=== PATIENT | male | born 1990 | race Caucasian/White ===

== ENCOUNTER 2016-04-17 11:48 | Emergency (ER) | payer SELFPAY ==
[2016-04-17] MEDS ORDERED: Clindamycin CAP* 150 MG PO ONE (13:55)
[2016-04-17] MEDS ORDERED: Acetaminophen TAB* 325 MG PO ONE (13:55)
--- NOTE | 2016-04-17 14:16 | ED ---
Deb Brewer Anna, scribed for Jesus España MD on 04/17/16 at 1353 . Throat Pain/Nasal Congestion - HPI Summary HPI Summary: Patient is a 25 y/o male coming to [facility] presenting with constant left-sided jaw pain that that began one week ago. He describes the severity of the pain as 9/10. Last week he cut sugar out of his diet because of the pain. Pain radiates through sinuses and eye socket. Additionally experiences nasal drip, productive cough, and fever yesterday. Four years ago he had jaw reconstruction because of broken teeth. - History of Current Complaint Chief Complaint: EDDentalPain Time Seen by Provider: 04/17/16 13:47 - Allergies/Home Medications Allergies/Adverse Reactions: Allergies Allergy/AdvReac Type Severity Reaction Status Date / Time Fluticasone [From Flonase] Allergy Intermediate vomiting Verified 03/13/16 15:29 blood Penicillins [PCN] Allergy Intermediate Vomiting Verified 03/13/16 15:29 Prednisone Allergy Intermediate vomit blood Verified 03/13/16 15:29 Molds & Smuts Allergy Congestion Verified 03/13/16 15:29 Ibuprofen AdvReac Severe VOMITING, Verified 03/13/16 15:29 SEVERE STOMACH PAIN white vinegar Allergy Rash Uncoded 03/13/16 15:29 PMH/Surg Hx/FS Hx/Imm Hx Endocrine/Hematology History: Denies: Hx Anticoagulant Therapy, Hx Diabetes, Hx Thyroid Disease, Other Endocrine/Hematological Disorders Cardiovascular History: Reports: Hx Hypertension - PRE-HTN, Other Cardiovascular Problems/Disorders - FLUTTERS Denies: Hx Pacemaker/ICD Respiratory History: Reports: Hx Chronic Bronchitis, Hx Chronic Obstructive Pulmonary Disease (COPD) Denies: Hx Asthma, Other Respiratory Problems/Disorders GI History: Reports: Hx Gastroesophageal Reflux Disease, Hx Hiatal Hernia, Other GI Disorders - hiatal hernia Denies: Hx Ulcer History: Denies: Hx Renal Disease, Other Problems/Disorders Musculoskeletal History: Reports: Hx Orthopedic Injury - Right wrist dislocation ; Fractrued left forearm; Left Patella Fx; Fx Femur;, Other Musculoskeletal History - see above Sensory History: Denies: Other Sensory Impairments Opthamlomology History: Denies: Other Sensory Impairments Neurological History: Reports: Hx Migraine, Other Neuro Impairments/Disorders - BACK INJURY 2007- MUSCLES Denies: Hx Dementia, Hx Seizures Psychiatric History: Reports: Hx Anxiety, Hx Depression, Hx Bipolar Disorder, Hx Substance Abuse - synthetic drugs 1 yr ago Denies: Hx Eating Disorder, Hx of Violent Episodes Against Others, Other Psychiatric Issues/Disorders - Surgical History Surgery Procedure, Year, and Place: 2012 orif right wrist/left jaw orif/orif left femur-knee cap - Immunization History Date of Tetanus Vaccine: Up to date Date of Influenza Vaccine: None Infectious Disease History: Unable to Obtain/Confirm Infectious Disease History: Reports: Hx Hepatitis - HEP C Denies: Hx Clostridium Difficile, Hx Human Immunodeficiency Virus (HIV), Hx of Known/Suspected MRSA - has had staph on his face, Hx Shingles, Hx Tuberculosis, Hx Known/Suspected VRE, Hx Known/Suspected VRSA, History Other Infectious Disease, Traveled Outside the [place] in Last 30 Days - Family History Known Family History: Positive: Cardiac Disease, Hypertension, Diabetes, Other - thyroid disease - Social History Occupation: Employed Full-time Lives: With Family Alcohol Use: None Hx Substance Use: Yes Substance Use Type: Reports: None Substance Use Comment - 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 Patient is lying comfortably on the stretcher. Head: Normacephalic and atraumatic Eyes: PERRLA, EOMI x2. Ears: Right and Left ear canal and TM WNL Nose and mouth: Multiple dental cavities. Worse in tooth # Neck: Supple, no lymphadenopathy, no JVD Lungs: CTA B/L CVS: S1 & S2 present. No murmurs appreciated. Vital signs: Reviewed Gen.: Patient is a well-developed and nourished male in no acute distress. Patient is lying comfortably on the stretcher. Head: Normacephalic and atraumatic Eyes: PERRLA, EOMI x2. Ears: Right and Left ear canal and TM WNL Nose and mouth: Multiple dental cavities. Worse tooth # 16. Neck: Supple, no lymphadenopathy, no JVD Lungs: CTA B/L CVS: S1 & S2 present. No murmurs appreciated. Vital Signs On Initial Exam: Initial Vitals Temp Pulse Resp BP Pulse Ox 98.4 F 76 14 135/72 100 04/17/16 11:55 04/17/16 11:55 04/17/16 11:55 04/17/16 11:55 04/17/16 11:55 Diagnostics - Vital Signs Vital Signs Temp Pulse Resp BP Pulse Ox 04/17/16 11:55 98.4 F 76 14 135/72 100 - Laboratory Lab Statement: Any lab studies that have been ordered have been reviewed, and results considered in the medical decision making process. EENT Course/Dx - Course Assessment/Plan: Patient is a 25 y/o male coming to [facility] presenting with constant left-sided jaw pain that that began one week ago. He describes the severity of the pain as 9/10. Last week he cut sugar out of his diet because of the pain. Pain radiates through sinuses and eye socket. Additionally experiences nasal drip, productive cough, and fever yesterday. Four years ago he had jaw reconstruction because of broken teeth. P/E reveals multiple dental cavities. Worse tooth # 16. Patient is allergic to Penicillin. He will be given Clindamycin and tylenol. He was strongly recommended to f/u with a dentist for definite treatment of multiple cavities. He understands and agrees. - Differential Diagnoses Differential Diagnoses: Odontogenic Pain, Periodontic Abscess, URI/Bronchitis - Diagnoses Provider Diagnoses: Dental cavity Discharge - Discharge Plan Condition: Stable Disposition: HOME Prescriptions: Acetaminophen TAB* [Tylenol TAB*] 650 mg PO Q6H PRN #20 tab PRN Reason: Pain Clindamycin CAP* [Cleocin 150 MG CAP*] 150 mg PO QID #28 cap Patient Education Materials: Dental Caries (ED), Toothache (ED) Referrals: [facility], [MD - TESTING] - The documentation as recorded by the Deb cox Anna accurately reflects the service I personally performed and the decisions made by me, Jesus España MD.
[2016-04-17 14:38] VITALS: BP 118/81
== END 2016-04-17 14:37 | disposition home or self-care (01) ==
LOC: ED 11:48
DX: K02.9 Dental caries, unspecified (principal); R50.9 Fever, unspecified; R68.84 Jaw pain; Z88.0 Allergy status to penicillin; Z88.6 Allergy status to analgesic agent
CPT/HCPCS: 99282; A9270-GY

== ENCOUNTER 2016-04-28 07:30 | Emergency (ER) | payer SELFPAY ==
[2016-04-28 07:42] VITALS: BP 128/78
--- NOTE | 2016-05-10 00:23 | UC ---
Benjamin Brewer Aidan, scribed for Elda Leung DO on 04/28/16 at 0827 . General HPI - HPI Summary HPI Summary: 25 y/o male presents to the Urgent Care with a complaint of acute, constant, moderate fatigue, episodes of moderate dizziness, and a productive cough producing thick, green phlegm. 4 days ago, he began having chest congestion. Yesterday, he felt fatigued, dizzy, and developed a productive cough. This morning, there was some blood in his phlegm that seems to be coming from his nose - bright red streaks. Other associated symptoms include nausea, mild photophobia, and a sinus CORBIN with ear pain. Pt denies any sore throat or abdominal pain. - History of Current Complaint Chief Complaint: UCGeneralIllness Stated Complaint: CHEST CONGESTION Time Seen by Provider: 04/28/16 08:12 Hx Obtained From: Patient Onset/Duration: Sudden Onset, Lasting Days, Still Present Timing: Intermittent Episodes Lasting: - constant fatigue, photophobia, intermittent episodes of productive cough, dizziness, nausea, sinus CORBIN with ear pain, episode of near-syncope Onset Severity: Moderate Current Severity: Moderate Pain Location at: ear, sinus CORBIN Pain Radiates to: does not radiate Character: sinus CORBIN with ear pain, episodes of dizziness Aggravating: dizziness caused an episode of near-syncope Alleviating: unknown Associated Signs & Symptoms: Positive: Cough, Dizziness, Headache - with ear pain, Nausea, Other - fatigue, chest congestion, photophobia - Allergy/Home Medications Allergies/Adverse Reactions: Allergies Allergy/AdvReac Type Severity Reaction Status Date / Time Fluticasone [From Flonase] Allergy Intermediate vomiting Verified 03/13/16 15:29 blood Penicillins [PCN] Allergy Intermediate Vomiting Verified 03/13/16 15:29 Prednisone Allergy Intermediate vomit blood Verified 03/13/16 15:29 Molds & Smuts Allergy Congestion Verified 03/13/16 15:29 Ibuprofen AdvReac Severe VOMITING, Verified 03/13/16 15:29 SEVERE STOMACH PAIN white vinegar Allergy Rash Uncoded 03/13/16 15:29 PMH/Surg Hx/FS Hx/Imm Hx Endocrine History Of: Denies: Diabetes, Thyroid Disease Cardiovascular History Of: Reports: Hypertension - PRE-HTN Denies: Cardiac Disorders - flutters at times, Pacemaker/ICD Respiratory History Of: Reports: COPD, Bronchitis - RECURRENT, X4 PER YEAR. Denies: Asthma GI/ History Of: Reports: Gastroesophageal Reflux - hiatal hernia Denies: Ulcer, Renal Disease Neurological History Of: Reports: Migraine Denies: CVA, Dementia, Seizures Psychological History Of: Reports: Anxiety, Depression, Bipolar Disorder Other History Of: Negative For: Anticoagulant Therapy - Surgical History Surgical History: Yes Surgery Procedure, Year, and Place: 2012 orif right wrist/left jaw orif/orif left femur-knee cap - Family History Known Family History: Positive: Cardiac Disease, Hypertension, Diabetes, Other - thyroid disease - Social History Occupation: Employed Full-time Lives: Alone Alcohol Use: None Substance Use Type: None Substance Use Comment - 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 Smoking Status (MU): Current Every Day Smoker Type: Cigarettes Amount Used/How Often: 1/2 PPD Length of Time of Smoking/Using Tobacco: 14 years Have You Smoked in the Last Year: No Cessation Counseling: Patient Advised to Stop Review of Systems Constitutional: Fatigue, Other - dizziness, nausea Skin: Negative Eyes: Photophobia ENT: Ear Ache Respiratory: Cough Cardiovascular: Negative Gastrointestinal: Negative Genitourinary: Negative Motor: Negative Neurovascular: Negative Musculoskeletal: Negative Neurological: Headache Psychological: Negative All Other Systems Reviewed And Are Negative: Yes Physical Exam Triage Information Reviewed: Yes Appearance: Well-Appearing, No Pain Distress, Well-Nourished Vital Signs: Initial Vital Signs Temp 98.7 F 04/28/16 07:37 Pulse 96 04/28/16 07:37 Resp 16 04/28/16 07:37 BP 128/78 04/28/16 07:37 Pulse Ox 100 04/28/16 07:37 Vital Signs Reviewed: Yes Eyes: Positive: Conjunctiva Clear. Negative: Discharge ENT: Positive: Hearing grossly normal, TMs normal. Negative: Tonsillar swelling , Tonsillar exudate, Trismus, Muffled/hoarse voice Neck exam: Normal Neck: Positive: Supple Respiratory: Positive: Lungs clear, Normal breath sounds, No respiratory distress, No accessory muscle use Cardiovascular: Positive: RRR, No Murmur Musculoskeletal Exam: Normal Neurological: Positive: Alert, Muscle Tone Normal Psychological: Positive: Age Appropriate Behavior Skin Exam: Normal, Other - warm, dry, normal color Course/Dx - Course Course Of Treatment: Dr. Leung informed the patient about the risks of smoking. - Differential Dx - Multi-Symptom Provider Diagnoses: sinusitis, bronchospasm Discharge - Discharge Plan Condition: Stable Disposition: HOME Prescriptions: Albuterol 2.5MG/3ML (0.083%)* [Ventolin 2.5 MG/3 ML NEB.MARY*] 2.5 mg INH Q4H PRN #1 box PRN Reason: Sob/Wheezing Albuterol HFA INHALER* [Ventolin HFA Inhaler*] 2 puff INH Q4H PRN #1 mdi PRN Reason: Sob/Wheezing Azithromycin TAB* [Zithromax TAB (Z-MONICO) 250 mg #6 tabs] 0 mg PO .SEE INSTRUCTIONS #6 tab guaiFENesin ER TAB [Mucinex*] 600 mg PO BID PRN #1 box PRN Reason: Cough guaiFENesin/CODIEN 100MG-10MG* [Robitussin AC 100Mg-10Mg*] 5 - 10 ml PO BEDTIME PRN #100 udc MDD 10ml PRN Reason: Cough Patient Education Materials: Sinusitis (ED), Bronchospasm (ED) Forms: *Work Release Referrals: No Primary Care Phys,NOPCP [Primary Care Provider] - Additional Instructions: TRY USING THE NETTI POT IN THE MORNINGS DISCUSSED. YOU MUST ALWAYS USE CLEAN WATER. REMEMBER, POSTURE IS AN IMPORTANT FACTOR IN SINUS DRAINAGE. MOVE YOUR NECK, BREATHE. INHALED BRONCHODILATORS:YOU CAN USE EITHER THE INHALER OR NEB EVERY 4 HOURS WHILE AWAKE WHILE SYMPTOMS OF COUGHING SPASMS PERSIST. You have received a prescription for an inhaled bronchodilator -- a medication which stimulates the airways in the lung to dilate. This improves the flow of air in asthma, bronchitis, and emphysema. These medicines have some similarity to adrenaline, and can cause similar side effects: shakiness, racing heart, and a sense of nervousness. These side effects decrease with time. Contact your doctor if these side effects are severe. Do not over-use the medicine. Too-frequent use of the inhaler may make it ineffective. Call your doctor if the inhaler is not controlling your symptoms at the prescribed doses. COUGH-SUPPRESSANT & EXPECTORANT MEDICATION: You are to use a cough medication as needed for relief of symptoms. This medicine is a combination of an expectorant (to make the mucous thinner and more easily "coughed up") and a cough suppressant (to reduce the frequency of coughing). The cough-suppressant medicine is related to narcotics. You may experience mild nausea and sleepiness. Some patients who are very sensitive to narcotics may have stomach pain from this medicine. Taking the medicine with food reduces these side effects. Do not drive or work with machinery until you know how this medicine affects you. The expectorant should have no side effects. Iodine-containing expectorants (such as organidin) should not be taken by persons with active thyroid disease unless approved by your doctor. Call the doctor if you develop shortness of breath, hives, rash, itching, lightheadedness, or severe nausea and vomiting. EXPECTORANT MEDICATION: An expectorant medicine has been prescribed. This type of drug makes mucous thinner, helping the sinuses, nose, and bronchial tubes to remain free of pus and mucous. Expectorants make a cough less severe and more comfortable, and help infected sinuses drain. In general, antihistamines defeat the purpose of the expectorant by making mucous thicker. They should be avoided unless specifically recommended by your physician. ANTIBIOTICS ARE NOT CURRENTLY INDICATED FOR YOUR CONDITION. HOWEVER IF YOUR SYMPTOMS WORSEN OR PERSIST FOR MORE THAN 3-5 DAYS, YOU CAN START THE FOLLOWING ANTIBIOTIC: AZITHROMYCIN: Azithromycin (Zithromax) is a broad spectrum antibiotic in the same class as erythromycin. It can treat a variety of bacterial infections, but is most frequently used for respiratory infections. Azithromycin is extremely long-lasting. It accumulates in body tissues and continues to kill bacteria for many days. In order to improve absorption, Azithromycin should be taken at least one hour before or two hours after a meal. It does not have the same strong tendency to upset the stomach as erythromycin and is usually very well tolerated. Patients who have had a rash or other true allergic reactions to erythromycin should not take this medication. Call if you develop gastrointestinal distress, severe diarrhea, rash, hives, itching, or shortness of breath. ANY TIME YOU TAKE AN ANTIBIOTIC, IT IS IMPORTANT TO REPLENISH THE BODY'S BALANCE OF "GOOD" BACTERIA BY EATING HIGH QUALITY CULTURED FOOD SUCH YOGURT, SAURKRAUT OR KATE CHI AND/OR TAKING A PROBIOTIC SUPPLEMENT. FOLLOW-UP CARE: You should establish with a private physician for follow-up care IN 1-2 WEEKS. If you are unable to get a timely appointment, or if you are worsening, call us or return for re-evaluation. An additional resource available to assist in finding the appropriate physician for your health care needs is the Physician Referral Center. You may contact them by calling [phone]. The documentation as recorded by the Benjamin cox Aidan accurately reflects the service I personally performed and the decisions made by me, Elda Leung DO.
== END 2016-04-28 09:09 | disposition home or self-care (01) ==
LOC: UCEAST 07:30
DX: J32.9 Chronic sinusitis, unspecified (principal); J98.01 Acute bronchospasm; Z88.6 Allergy status to analgesic agent; Z88.0 Allergy status to penicillin; F17.210 Nicotine dependence, cigarettes, uncomplicated
CPT/HCPCS: 99211; G0463

== ENCOUNTER 2016-05-15 12:37 | Emergency (ER) | payer SELFPAY ==
[2016-05-15 12:55] VITALS: BP 131/67
[2016-05-15] MEDS ORDERED: Bupivacaine 0.25% SDV* 30 ML ONE (13:40)
--- NOTE | 2016-05-15 13:46 | UC ---
Dental HPI - HPI Summary HPI Summary: TWO DAY HISTORY OF LEFT LOWER TOOTH PAIN; NO FEVER. HISTORY OF SEVERAL DENTAL VISITS TO ED/URGENT CARE (RECENT VISITS 03/13/16, 04/17/16 FOR LEFT SIDED DENTAL COMPLAINS. PATIENT STATED AT THOSE VISITS HE HAD APPOINTMENT TO [facility] TO HAVE ISSUE ADDRESSED). NO SORE THROAT. NO SWELLING OFF TONGUE, EAR ACHE OR HEADACHE. - History of Current Complaint Chief Complaint: UCDentalProblem Stated Complaint: DENTAL COMPLAINT Time Seen by Provider: 05/15/16 12:56 Hx Obtained From: Patient Onset/Duration: Gradual Onset, Lasting Days, Still Present Severity: Moderate Aggravating: Chewing Related History: Previous Dental Care on Same Tooth - Allergies/Home Medications Allergies/Adverse Reactions: Allergies Allergy/AdvReac Type Severity Reaction Status Date / Time Fluticasone [From Flonase] Allergy Intermediate vomiting Verified 03/13/16 15:29 blood Penicillins [PCN] Allergy Intermediate Vomiting Verified 03/13/16 15:29 Prednisone Allergy Intermediate vomit blood Verified 03/13/16 15:29 Molds & Smuts Allergy Congestion Verified 03/13/16 15:29 white vinegar Allergy Rash Uncoded 03/13/16 15:29 PMH/Surg Hx/FS Hx/Imm Hx Previously Healthy: Yes Endocrine History Of: Denies: Diabetes, Thyroid Disease Cardiovascular History Of: Reports: Hypertension - PRE-HTN Denies: Cardiac Disorders - flutters at times, Pacemaker/ICD Respiratory History Of: Reports: COPD, Bronchitis - RECURRENT, X4 PER YEAR. Denies: Asthma GI/ History Of: Reports: Gastroesophageal Reflux - hiatal hernia Denies: Ulcer, Renal Disease Neurological History Of: Reports: Migraine Denies: CVA, Dementia, Seizures Psychological History Of: Reports: Anxiety, Depression, Bipolar Disorder Other History Of: Negative For: Anticoagulant Therapy - Surgical History Surgical History: Yes Surgery Procedure, Year, and Place: 2012 orif right wrist/left jaw orif/orif left femur-knee cap - Family History Known Family History: Positive: Unknown, Cardiac Disease, Hypertension, Diabetes , Other - thyroid disease - Social History Occupation: Employed Full-time Alcohol Use: None Substance Use Type: None Substance Use 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 - 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 Smoking Status (MU): Current Every Day Smoker Type: Cigarettes Amount Used/How Often: 1/2 PPD Length of Time of Smoking/Using Tobacco: 14 years Have You Smoked in the Last Year: No Cessation Counseling: Patient Advised to Stop Review of Systems Constitutional: Negative Skin: Negative Eyes: Negative ENT: Dental Pain Respiratory: Negative Cardiovascular: Negative Gastrointestinal: Negative Genitourinary: Negative Motor: Negative Neurovascular: Negative Musculoskeletal: Negative Neurological: Negative Psychological: Negative All Other Systems Reviewed And Are Negative: Yes Physical Exam Triage Information Reviewed: Yes Appearance: Well-Appearing, No Pain Distress, Well-Nourished, Thin Vital Signs: Initial Vital Signs Temp 99.8 F 05/15/16 12:48 Pulse 97 05/15/16 12:48 Resp 18 05/15/16 12:48 BP 131/67 05/15/16 12:48 Pulse Ox 97 05/15/16 12:48 Vital Signs Reviewed: Yes Eye Exam: Normal ENT Exam: Normal ENT: Positive: Normal ENT inspection, Hearing grossly normal, Pharynx normal, TMs normal Dental: Positive: Percussion Tenderness @, Gross Decay/Caries @ - ,20 Neck exam: Normal Neck: Positive: Supple, Nontender Respiratory Exam: Normal Respiratory: Positive: Chest non-tender, Lungs clear, Normal breath sounds, No respiratory distress, No accessory muscle use Cardiovascular Exam: Normal Cardiovascular: Positive: RRR, No Murmur, Pulses Normal Abdominal Exam: Normal Abdomen Description: Positive: Nontender, No Organomegaly Musculoskeletal Exam: Normal Musculoskeletal: Positive: Strength Intact, ROM Intact Neurological Exam: Normal Neurological: Positive: Alert Psychological Exam: Normal Skin Exam: Normal Dental Complaint Course/Dx - Differential Dx/Diagnosis Differential Diagnosis/Dx: Dental Abscess, Odontogenic Pain, Peridontic Disease , Tonsillitis Provider Diagnoses: ODONTOGENIC PAIN - Physician Notification/Consults Discussed Patient Care With: DR ROUSSEAU Time Discussed With Above Provider: 13:30 Discharge - Discharge Plan Condition: Stable Disposition: HOME Prescriptions: Clindamycin Cap(NF) [Cleocin 300 mg Cap(NF)] 300 mg PO TID #30 cap Patient Education Materials: Dental Caries (ED), Toothache (ED) Referrals: [facility] PHYSICIAN REFERRAL [Outside] No Primary Care Phys,NOPCP [Primary Care Provider] - Additional Instructions: DENTAL REFERRAL SHEET GIVEN [facility] CHRONIC PAIN GUIDELINES. Images Dental: 1 - [facility]
[2016-05-15] MEDS ORDERED: Ibuprofen TAB* 400 MG PO ONE (13:59)
[2016-05-15] MEDS ORDERED: Acetaminophen TAB* 325 MG PO ONE (14:01)
--- NOTE | 2016-05-15 14:19 | UC ---
casandra Brewer Timothy, scribed for Trinh Smyth MD on 05/15/16 at 1352 . Progress - Progress Note Progress Note: PROCEDURE NOTE: Jaqueline Agudelo is a 25 yo male presenting to [facility] with 9/10 pain in tooth 21 for the past few days. After clinical examination of the tooth in question,and obtaining informed consent and doing a time out procedure. Pt was injected using sterile technique with 5ml of bupivacaine, and infiltrated in area of left lower alveolar nerve, which decreased his pain from 9/10 to a 3/ 10. He had no complications and voiced relief and satisfaction with the procedure. Following his decrease in pain, he will be discharged with appropriate instructions and follow up. Attempted to make dental appointment for patient with his upcoming [employer] insurance and unable to get appointment with 3 dental offices that were called. Will advise pt to continue calling. The documentation as recorded by the scribecasandra Timothy accurately reflects the service I personally performed and the decisions made by me, Trinh Smyth MD.
== END 2016-05-15 14:37 | disposition home or self-care (01) ==
LOC: UCEAST 12:37
DX: K08.89 Other specified disorders of teeth and supporting structures (principal); Z88.0 Allergy status to penicillin; Z88.8 Allergy status to other drugs, medicaments and biological substances; F17.210 Nicotine dependence, cigarettes, uncomplicated
CPT/HCPCS: 99212; A9270-GY; G0463

== ENCOUNTER 2016-05-29 16:42 | Emergency (ER) | payer SELFPAY ==
[2016-05-29 17:58] VITALS: BP 116/63
== END 2016-05-29 18:57 | disposition left against medical advice (07) ==
LOC: ED 16:42
DX: R21 Rash and other nonspecific skin eruption (principal); Z53.21 Procedure and treatment not carried out due to patient leaving prior to being seen by health care provider

== ENCOUNTER 2016-06-10 15:55 | Emergency (ER) | payer SELFPAY ==
[2016-06-10] MEDS ORDERED: NS 0.9% 1000 ML* 2,000 ML IV ONE (16:28)
[2016-06-10] MEDS ORDERED: Ondansetron INJ* 2 MG/ML VIAL IV ONE (16:28)
[2016-06-10] MEDS ORDERED: Morphine INJ* 4 MG/ML 1 ML CARPUJECT IV ONE ×3 (16:28→19:22)
[2016-06-10 16:44] LABS: Hematocrit 43 % (42-52); Hemoglobin 14.5 g/dl (14.0-18.0); Mean Corpuscular HGB Conc 34 g/dl (31-36); Mean Corpuscular Hemoglobin 30 pg (27-31); Mean Corpuscular Volume 88 fL (80-94); Mean Platelet Volume 10 um3 (7.4-10.4); Red Blood Count 4.91 10^6/ul (4.0-5.4); Red Cell Distribution Width 13 % (10.5-15); White Blood Count 7.2 10^3/ul (3.5-10.8)
[2016-06-10 16:59] LABS: ALT 13 U/L (7-52); AST 11 U/L (13-39); Albumin 4.4 g/dL (3.2-5.2); Alkaline Phosphatase 69 U/L (34-104); Anion Gap 7 mmol/L (2-11); BUN/Creatinine Ratio 16.4 (8-20); Blood Urea Nitrogen 12 mg/dL (6-24); C Reactive Protein < 1.00 mg/L (< 5.00); CO2 Carbon Dioxide 27 mmol/L (22-32); Calcium 9.3 mg/dL (8.6-10.3); Chloride 104 mmol/L (101-111); EGFR Non-African American 129.9 (>60); Globulin 2.8 g/dL (2-4); Glucose 89 mg/dL (70-100); Lipase 16 U/L (11.0-82.0); Potassium 3.5 mmol/L (3.5-5.0); Sodium 138 mmol/L (133-145); Total Protein 7.2 g/dL (6.4-8.9)
[2016-06-10] MEDS ORDERED: Iohexol 300* (CONTRAST) 10 ML SDV IV ONE (18:26)
--- NOTE | 2016-06-10 18:56 | RAD ---
INDICATION: Right lower quadrant abdominal pain. COMPARISON: Comparison is made with a prior CT of the abdomen from February 15, 2010. TECHNIQUE: A CT scan of the abdomen and pelvis was performed with intravenous and oral contrast following intravenous injection of 91 ml of Omnipaque 300 nonionic contrast. Contiguous axial sections were obtained from the lung bases through the symphysis pubis. Images were reconstructed in the coronal and sagittal planes. FINDINGS: The lung bases are clear. No pleural effusion is present. The liver and spleen are within normal limits in size without significant focal abnormality. No calcified gallstones are seen. The pancreas appears to be within normal limits in size. The kidneys and adrenal glands are normal in size. No hydronephrosis is seen. No significant focal renal abnormality is seen. The aorta is normal in caliber and demonstrates homogeneous contrast opacification. No significant enlarged retroperitoneal lymph nodes are seen. The stomach, small and large bowel appear nondistended. There is a small bowel intussusception in the left upper quadrant. The appendix is within normal limits. There is no evidence for diverticulitis or colitis. No free intraperitoneal air or fluid is seen. Postsurgical changes are noted in the proximal left femur. No significant focal osseous abnormalities are seen. IMPRESSION: 1. NO EVIDENCE FOR APPENDICITIS. 2. SMALL BOWEL INTUSSUSCEPTION IN THE LEFT UPPER QUADRANT, LIKELY INCIDENTAL ALTHOUGH THIS CAN BE FURTHER EVALUATED WITH A FOLLOW-UP SMALL BOWEL SERIES OR MR ENTEROGRAPHY.
[2016-06-10 19:08] LABS: Urine Bilirubin Negative (Negative); Urine Glucose Negative (Negative); Urine Nitrite Negative (Negative)
--- NOTE | 2016-06-10 21:13 | ED ---
I, Oh,Reji, scribed for Flako Cerda MD on 06/10/16 at 1628 . Abdominal Pain/Male - HPI Summary HPI Summary: This 25 y/o male presents to ED for acute RLQ pain since 0400 AM this morning. Pain radiates to right suprapubic area. He woke up with the pain at time of onset. He went back to sleep around 0600 AM, but pain increase to the extent that pt was "doubled over with pain". He reports "bump" at right suprapubic area. Pt denies any testicular, n/v, scrotal pain, dysuria, fever, chills, or hx of any abd surgeries. He also reports right lower back pain at the time of onset. He states that he usually doesn't eat during the day, and did not consume any meal today as per usual. - History of Current Complaint Chief Complaint: EDAbdPain Stated Complaint: LOWER ABD PAIN, GROIN PAIN Time Seen by Provider: 06/10/16 16:06 Hx Obtained From: Patient, Medical Records Onset/Duration: Sudden Onset, Lasting Hours, Still Present Timing: Constant Pain Intensity: 3 Pain Scale Used: 0-10 Numeric Location: Discrete At: RLQ Radiates: Yes Radiates to: Back, Inguinal Aggravating Factor(s): Nothing Alleviating Factor(s): Nothing Associated Signs And Symptoms: Negative: Fever, Nausea, Vomiting, Diarrhea - Allergies/Home Medications Allergies/Adverse Reactions: Allergies Allergy/AdvReac Type Severity Reaction Status Date / Time Fluticasone [From Flonase] Allergy Intermediate vomiting Verified 03/13/16 15:29 blood Penicillins [PCN] Allergy Intermediate Vomiting Verified 03/13/16 15:29 Prednisone Allergy Intermediate vomit blood Verified 03/13/16 15:29 Ketorolac Tromethamine Allergy See Comment Verified 05/15/16 14:03 [From Toradol] Molds & Smuts Allergy Congestion Verified 03/13/16 15:29 white vinegar Allergy Rash Uncoded 03/13/16 15:29 PMH/Surg Hx/FS Hx/Imm Hx Endocrine/Hematology History: Denies: Hx Anticoagulant Therapy, Hx Diabetes, Hx Thyroid Disease, Other Endocrine/Hematological Disorders Cardiovascular History: Reports: Hx Hypertension - PRE-HTN, Other Cardiovascular Problems/Disorders - FLUTTERS Denies: Hx Pacemaker/ICD Respiratory History: Reports: Hx Chronic Bronchitis, Hx Chronic Obstructive Pulmonary Disease (COPD) Denies: Hx Asthma, Other Respiratory Problems/Disorders GI History: Reports: Hx Gastroesophageal Reflux Disease, Hx Hiatal Hernia, Other GI Disorders - hiatal hernia Denies: Hx Ulcer History: Denies: Hx Renal Disease, Other Problems/Disorders Musculoskeletal History: Reports: Hx Orthopedic Injury - Right wrist dislocation ; Fractrued left forearm; Left Patella Fx; Fx Femur;, Other Musculoskeletal History - see above Sensory History: Denies: Other Sensory Impairments Opthamlomology History: Denies: Other Sensory Impairments Neurological History: Reports: Hx Migraine, Other Neuro Impairments/Disorders - BACK INJURY 2007- MUSCLES Denies: Hx Dementia, Hx Seizures Psychiatric History: Reports: Hx Anxiety, Hx Depression, Hx Bipolar Disorder, Hx Substance Abuse - synthetic drugs 1 yr ago Denies: Hx Eating Disorder, Hx of Violent Episodes Against Others, Other Psychiatric Issues/Disorders - Surgical History Surgery Procedure, Year, and Place: 2012 orif right wrist/left jaw orif/orif left femur-knee cap - Immunization History Date of Tetanus Vaccine: Up to date Date of Influenza Vaccine: None Infectious Disease History: No Infectious Disease History: Reports: Hx Hepatitis - hep c Denies: Hx Clostridium Difficile, Hx Human Immunodeficiency Virus (HIV), Hx Shingles, Hx Tuberculosis, Hx Known/Suspected VRE, Hx Known/Suspected VRSA, History Other Infectious Disease, Traveled Outside the [place] in Last 30 Days Comment Only: Hx of Known/Suspected MRSA - has had staph on his face - Family History Known Family History: Positive: Cardiac Disease, Hypertension, Diabetes, Other - thyroid disease - Social History Alcohol Use: None Hx Substance Use: Yes Substance Use Type: Reports: None Substance Use Comment - 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 Hx Tobacco Use: Yes Smoking Status (MU): Current Every Day Smoker Type: Cigarettes Amount Used/How Often: 1/2 PPD Length of Time of Smoking/Using Tobacco: 14 years Have You Smoked in the Last Year: No Review of Systems Negative: Fever, Chills Positive: Abdominal Pain. Negative: Vomiting, Diarrhea, Nausea Negative: dysuria Negative: Anxious, Depressed All Other Systems Reviewed And Are Negative: Yes Physical Exam Triage Information Reviewed: Yes Vital Signs On Initial Exam: Initial Vitals Temp Pulse Resp BP Pulse Ox 97.6 F 102 16 150/88 100 06/10/16 15:57 06/10/16 15:57 06/10/16 15:57 06/10/16 15:57 06/10/16 15:57 Vital Signs Reviewed: Yes Appearance: Positive: Well-Appearing, No Pain Distress Skin: Positive: Warm, Skin Color Reflects Adequate Perfusion, Dry Head/Face: Positive: Normal Head/Face Inspection Eyes: Positive: EOMI, KALE Neck: Positive: Supple, Nontender Respiratory/Lung Sounds: Positive: Breath Sounds Present Cardiovascular: Positive: RRR, Pulses are Symmetrical in both Upper and Lower Extremities Abdomen Description: Positive: Other: - Mildly tender at right sided abd, more notable at RLQ Bowel Sounds: Positive: Hypoactive Male Genital Exam: Positive: inguinal tenderness - minimal tenderness just above inguinal. Negative: testicular tenderness (R), testicular tenderness (L) Musculoskeletal: Positive: Strength/ROM Intact Neurological: Positive: Sensory/Motor Intact, Alert, Oriented to Person Place, Time Diagnostics - Vital Signs Vital Signs Temp Pulse Resp BP Pulse Ox 06/10/16 15:57 97.6 F 102 16 150/88 100 - Laboratory Lab Results: Lab Results 06/10/16 06/10/16 06/10/16 Range/Units 16:35 16:35 16:35 WBC 7.2 (3.5-10.8) 10^3/ul RBC 4.91 (4.0-5.4) 10^6/ul Hgb 14.5 (14.0-18.0) g/dl Hct 43 (42-52) % MCV 88 (80-94) fL MCH 30 (27-31) pg MCHC 34 (31-36) g/dl RDW 13 (10.5-15) % Plt Count 159 (150-450) 10^3/ul MPV 10 (7.4-10.4) um3 Neut % (Auto) 55.3 (38-83) % Lymph % (Auto) 33.5 (25-47) % Henderson % (Auto) 7.9 (1-9) % Eos % (Auto) 2.2 (0-6) % Baso % (Auto) 1.1 (0-2) % Absolute Neuts (auto) 4.0 (1.5-7.7) 10^3/ul Absolute Lymphs (auto) 2.4 (1.0-4.8) 10^3/ul Absolute Monos (auto) 0.6 (0-0.8) 10^3/ul Absolute Eos (auto) 0.2 (0-0.6) 10^3/ul Absolute Basos (auto) 0.1 (0-0.2) 10^3/ul Absolute Nucleated RBC 0 10^3/ul Nucleated RBC % 0 INR (Anticoag Therapy) 1.10 (0.89-1.11) Sodium 138 (133-145) mmol/L Potassium 3.5 (3.5-5.0) mmol/L Chloride 104 (101-111) mmol/L Carbon Dioxide 27 (22-32) mmol/L Anion Gap 7 (2-11) mmol/L BUN 12 (6-24) mg/dL Creatinine 0.73 (0.67-1.17) mg/dL Est GFR ( Amer) 167.0 (>60) Est GFR (Non-Af Amer) 129.9 (>60) BUN/Creatinine Ratio 16.4 (8-20) Glucose 89 (70-100) mg/dL Lactic Acid (0.5-2.0) mmol/L Calcium 9.3 (8.6-10.3) mg/dL Total Bilirubin 0.60 (0.2-1.0) mg/dL AST 11 L (13-39) U/L ALT 13 (7-52) U/L Alkaline Phosphatase 69 (34-104) U/L C-Reactive Protein < 1.00 (< 5.00) mg/L Total Protein 7.2 (6.4-8.9) g/dL Albumin 4.4 (3.2-5.2) g/dL Globulin 2.8 (2-4) g/dL Albumin/Globulin Ratio 1.6 (1-3) Lipase 16 (11.0-82.0) U/L Urine Color Urine Appearance Urine pH (5-9) Ur Specific [place] (1.010-1.030) Urine Protein (Negative) Urine Ketones (Negative) Urine Blood (Negative) Urine Nitrate (Negative) Urine Bilirubin (Negative) Urine Urobilinogen (Negative) Ur Leukocyte Esterase (Negative) Urine Glucose (Negative) 06/10/16 06/10/16 Range/Units 16:35 18:45 WBC (3.5-10.8) 10^3/ul RBC (4.0-5.4) 10^6/ul Hgb (14.0-18.0) g/dl Hct (42-52) % MCV (80-94) fL MCH (27-31) pg MCHC (31-36) g/dl RDW (10.5-15) % Plt Count (150-450) 10^3/ul MPV (7.4-10.4) um3 Neut % (Auto) (38-83) % Lymph % (Auto) (25-47) % Henderson % (Auto) (1-9) % Eos % (Auto) (0-6) % Baso % (Auto) (0-2) % Absolute Neuts (auto) (1.5-7.7) 10^3/ul Absolute Lymphs (auto) (1.0-4.8) 10^3/ul Absolute Monos (auto) (0-0.8) 10^3/ul Absolute Eos (auto) (0-0.6) 10^3/ul Absolute Basos (auto) (0-0.2) 10^3/ul Absolute Nucleated RBC 10^3/ul Nucleated RBC % INR (Anticoag Therapy) (0.89-1.11) Sodium (133-145) mmol/L Potassium (3.5-5.0) mmol/L Chloride (101-111) mmol/L Carbon Dioxide (22-32) mmol/L Anion Gap (2-11) mmol/L BUN (6-24) mg/dL Creatinine (0.67-1.17) mg/dL Est GFR ( Amer) (>60) Est GFR (Non-Af Amer) (>60) BUN/Creatinine Ratio (8-20) Glucose (70-100) mg/dL Lactic Acid 1.1 (0.5-2.0) mmol/L Calcium (8.6-10.3) mg/dL Total Bilirubin (0.2-1.0) mg/dL AST (13-39) U/L ALT (7-52) U/L Alkaline Phosphatase (34-104) U/L C-Reactive Protein (< 5.00) mg/L Total Protein (6.4-8.9) g/dL Albumin (3.2-5.2) g/dL Globulin (2-4) g/dL Albumin/Globulin Ratio (1-3) Lipase (11.0-82.0) U/L Urine Color Yellow Urine Appearance Clear Urine pH 6.0 (5-9) Ur Specific [place] 1.005 L (1.010-1.030) Urine Protein Negative (Negative) Urine Ketones Negative (Negative) Urine Blood Negative (Negative) Urine Nitrate Negative (Negative) Urine Bilirubin Negative (Negative) Urine Urobilinogen Negative (Negative) Ur Leukocyte Esterase Negative (Negative) Urine Glucose Negative (Negative) Result Diagrams: 06/10/16 16:35 06/10/16 16:35 Lab Statement: Any lab studies that have been ordered have been reviewed, and results considered in the medical decision making process. - CT Ab/P CT Interpretation: Positive (See Comments) - 1. NO EVIDENCE FOR APPENDICITIS. 2. SMALL BOWEL INTUSSUSCEPTION IN THE LEFT UPPER QUADRANT, LIKELY INCIDENTAL ALTHOUGH THIS CAN BE FURTHER EVALUATED WITH A FOLLOW-UP SMALL BOWEL SERIES OR MR ENTEROGRAPHY. CT Interpretation Completed By: Radiologist Abdominal Pain Fem Course/Dx - Course Assessment/Plan: DR JOHNSON SAW PATIENT IN ED. SMALL BOWEL INTUSSUSCEPTION SEEN ON LEFT ABD ON CT. PATIENT'S PAIN ON RIGHT. PATIENT ATE A SANDWICH IN ED. DISCUSSED SURGICAL ADMISSION/OBSERVATION VERSES GOING HOME AND FOLLOWING UP IF WORSE OF NOT IMPROVED. PATIENT WISHED TO GO HOME AND RETURN IF WORSE/FOLLOW UP WITH SURGERY IF NOT COMPLETELY IMPROVED. DISCHARGE HOME STABLE. - Diagnoses Provider Diagnoses: Abdominal pain, Intussusception of small bowel - Provider Notifications Discussed Care Of Patient With: Dr. Johnson (Surgery) at 1915 PM Time Discussed With Above Provider: 19:15 Instructed by Provider To: MD Will See In ED Discharge - Discharge Plan Condition: Stable Disposition: HOME Discharge Disposition Comment: [facility] ongoing and dispo pending. Signed out at shift change. Patient Education Materials: Abdominal Pain (ED) Referrals: No Primary Care Phys,NOPCP [Primary Care Provider] - Additional Instructions: FOLLOW UP WITH SURGERY, DR JOHNSON, IF YOUR PAIN DOES NOT IMPROVE. RETURN TO THE EMERGENCY DEPARTMENT FOR ANY WORSENING OF YOUR CONDITION; YOUR PAIN GETS WORSE OR DOES NOT GO AWAY COMPLETELY, FEVER, YOU FEEL ILL OR QUESTIONS OR CONCERNS. The documentation as recorded by the Juancho cox Soohyun accurately reflects the service I personally performed and the decisions made by me, Flako Cerda MD.
[2016-06-10] MEDS: HYDROcodone/ACETAMIN 5-325 MG* 1 TAB PO ONE ×2 (21:20→21:21)
[2016-06-11 00:56] VITALS: BP 116/73
--- NOTE | 2016-06-11 01:24 | CONS ---
CONSULTATION REPORT: DATE OF CONSULTATION: 06/10/16 REFERRING PROVIDER: Dr. Flako Cerda, emergency room physician. LOCATION: The patient was seen in the emergency room in bay #11. REASON FOR CONSULTATION: Right lower quadrant abdominal pain with findings of small bowel intussusception on CT scan. HISTORY OF PRESENT ILLNESS: Mr. Jaqueline Armstrong is a 25-year-old healthy male who around 4 o'clock this morning noticed the development of some right lower quadrant abdominal pain, almost into the groin area. This was not associated with nausea, vomiting, or fever. He has had no anorexia. He has had no urinary complaints. He has noted no lumps or bulges or masses. He denies recent trauma or injury. There has been no pain that extends down into the scrotum or testicle and he has had no back discomfort. He has had a good appetite all day without nausea or vomiting. He has had no fevers or chills. He was seen in the emergency room and noted to be afebrile with normal vital signs. Laboratory workup included a normal white blood cell count and hemoglobin as well as electrolytes, BUN and creatinine, lipase, and C-reactive protein. In light of the location of his right lower quadrant pain, he underwent a CT scan of the abdomen and pelvis with both oral and IV contrast. This showed a normal appendix without evidence of acute findings. Also noted was an apparent incidental finding of a small bowel intussusception in the left upper quadrant, which was of a very short length without evidence of obstruction , free abdominal fluid or other findings. In light of this finding, a surgical consultation was obtained. PAST MEDICAL HISTORY: 1. Hiatal hernia. 2. Hepatitis C. 3. History of bipolar disorder. 4. Anxiety. PAST SURGICAL HISTORY: 1. Repair of left hip and femur fracture. 2. Right wrist surgery. MEDICATIONS: Include: 1. Albuterol inhaler p.r.n. 2. Ibuprofen p.r.n. ALLERGIES: FLONASE, PENICILLIN, PREDNISONE, TORADOL and WHITE VINEGAR. SOCIAL HISTORY: He smokes occasionally. Does not drink alcohol. REVIEW OF SYSTEMS: Cerebrovascular: He has no dizziness or visual disturbances. Cardiovascular: No chest pain, shortness of breath. Pulmonary: No wheezing or hemoptysis. GI: As per above. : No urgency or hematuria. PHYSICAL EXAMINATION: Temperature 87, blood pressure 124/67, respirations 16, oxygen saturation 97%. In general, a well-developed slender male, normal attention to grooming. He is sitting upright in bed and appears to be in no apparent distress. HEENT: Sclerae is anicteric. Trachea was midline. Oral mucosa was slightly dry. Lungs were clear to auscultation with normal respiratory effort. Heart: Regular rate and rhythm. Abdomen is soft and nondistended. He has no prior surgical incisions. I appreciate no masses, rebound guarding, rigidity or tenderness. He had normoactive bowel sounds throughout. In the groin, I appreciate no left or right inguinal hernia. He was describing some discomfort in the right lower quadrant. There is no rebound , guarding, mass or rigidity. Upon standing, I appreciate no testicular masses. There is no inguinal or femoral hernia on either side. There is no swelling in either left or right groin. He has several small easily movable lymph nodes that are less than 1 cm in both groins. I did review the CT scan with Dr. Marcano, the radiologist who read the study. This appears to be a very short segment intussusception and this is most likely incidental. There is no evidence of obstruction or other acute findings. IMPRESSION: 1. Right lower quadrant abdominal pain, etiology unknown. Normal appendix on CT scan. He has normal laboratory workup. Exam today is quite benign. I do not also appreciate any hernias or other abdominal wall etiology due to this discomfort and I do not feel he needs surgical intervention or admission. 2. Small bowel intussusception of the proximal small bowel in the left upper quadrant on CT scan. This is a very short segment of intussusception. It is not obstructing and there are no findings on physical exam in this area and his entire abdomen is benign. He has no history of nausea or vomiting or generalized abdominal discomfort, and I suspect that this is an incidental finding on CT scan. I discussed all of the findings with him and his fiancee. I do not believe that the right lower quadrant abdominal pain requires further workup or surgical intervention. We discussed the significance of intussusception and its etiologies, and the chance that there may be something that may require surgery, although I suspect in this situation, this is incidental. At this point, I would not recommend any urgent surgical intervention, but consideration of some followup contrast studies if his symptoms would persist of right lower quadrant abdominal discomfort. However, I do think that this will resolve and not require surgical intervention. PLAN: Right now is that he is hungry and with the benign physical exam mainly in his upper abdomen, we will try to start to feed him and see how he does. If he develops abdominal pain, nausea, vomiting, or distention, we will plan further workup and hospital admission with consideration of laparoscopy or further radiologic imaging such as a small bowel contrast study, but if he does tolerate food and seems to do well, we will discharge him home with close followup with instructions to return to the emergency room if he has worsening abdominal discomfort or other GI symptoms. All the above was discussed with Dr. Cerda. [id number]/[facility] #: [id number] SUKH[place]
== END 2016-06-10 21:20 | disposition home or self-care (01) ==
LOC: ED 15:55
DX: K56.1 Intussusception (principal); R10.31 Right lower quadrant pain; Z88.0 Allergy status to penicillin; F17.210 Nicotine dependence, cigarettes, uncomplicated
CPT/HCPCS: 36415; 74177; 80053; 81003; 83605; 83690; 85025; 85610; 86140; 96374; 96375; 99282; J2270; J2405; Q9967

== ENCOUNTER 2016-06-16 14:34 | Emergency (ER) | payer SELFPAY ==
[2016-06-16 16:08] LABS: Hematocrit 41 % (42-52); Hemoglobin 13.6 g/dl (14.0-18.0); Mean Corpuscular HGB Conc 33 g/dl (31-36); Mean Corpuscular Hemoglobin 29 pg (27-31); Mean Corpuscular Volume 88 fL (80-94); Mean Platelet Volume 10 um3 (7.4-10.4); Red Blood Count 4.63 10^6/ul (4.0-5.4); Red Cell Distribution Width 13 % (10.5-15); White Blood Count 6.9 10^3/ul (3.5-10.8)
[2016-06-16 16:10] LABS: Urine Bilirubin Negative (Negative); Urine Glucose Negative (Negative); Urine Nitrite Negative (Negative)
[2016-06-16 16:24] LABS: Albumin 4.3 g/dL (3.2-5.2); BUN/Creatinine Ratio 17.1 (8-20); C Reactive Protein 1.98 mg/L (< 5.00); Calcium 9.3 mg/dL (8.6-10.3); EGFR African American 159.4 (>60); Globulin 2.5 g/dL (2-4); Potassium 3.9 mmol/L (3.5-5.0); Total Bilirubin 0.5 mg/dL (0.2-1.0); Total Protein 6.8 g/dL (6.4-8.9)
[2016-06-16] MEDS ORDERED: Ibuprofen TAB* 600 MG PO ONE (16:38)
[2016-06-16 17:21] VITALS: BP 136/71
--- NOTE | 2016-06-16 19:35 | ED ---
Kenji Brewer Matthew, scribed for Jesus España MD on 06/16/16 at 1550 . Abdominal Pain/Male - HPI Summary HPI Summary: A 25 y/o male presents to the ED with gradually worsening LUQ abdominal pain since 2 days ago. The pain is currently rated 6/10 in severity. The patient was here on 06/10/16 and was Dx with intussusception. Associated symptoms currently include nausea and subjective fever - yesterday. The patient denies vomiting, diarrhea, constipation, and chills. - History of Current Complaint Chief Complaint: EDAbdPain Stated Complaint: ABD AND LOWER BACK PAIN Time Seen by Provider: 06/16/16 15:02 Hx Obtained From: Patient Onset/Duration: Gradual Onset, Lasting Days, Still Present Timing: Constant Severity Initially: Moderate Severity Currently: Moderate Pain Intensity: 6 Pain Scale Used: 0-10 Numeric Location: Discrete At: LUQ Character: Sharp Associated Signs And Symptoms: Positive: Fever - subjective, Nausea. Negative: Constipation, Vomiting, Diarrhea - Allergies/Home Medications Allergies/Adverse Reactions: Allergies Allergy/AdvReac Type Severity Reaction Status Date / Time Fluticasone [From Flonase] Allergy Intermediate vomiting Verified 06/16/16 14:47 blood Penicillins [PCN] Allergy Intermediate Vomiting Verified 06/16/16 14:47 Prednisone Allergy Intermediate vomit blood Verified 06/16/16 14:47 Ketorolac Tromethamine Allergy See Comment Verified 06/16/16 14:47 [From Toradol] Molds & Smuts Allergy Congestion Verified 06/16/16 14:47 white vinegar Allergy Rash Uncoded 06/16/16 14:47 PMH/Surg Hx/FS Hx/Imm Hx Endocrine/Hematology History: Denies: Hx Anticoagulant Therapy, Hx Diabetes, Hx Thyroid Disease, Other Endocrine/Hematological Disorders Cardiovascular History: Reports: Hx Hypertension - PRE-HTN, Other Cardiovascular Problems/Disorders - FLUTTERS Denies: Hx Pacemaker/ICD Respiratory History: Reports: Hx Chronic Bronchitis, Hx Chronic Obstructive Pulmonary Disease (COPD) Denies: Hx Asthma, Other Respiratory Problems/Disorders GI History: Reports: Hx Gastroesophageal Reflux Disease, Hx Hiatal Hernia, Other GI Disorders - hiatal hernia Denies: Hx Ulcer History: Denies: Hx Renal Disease, Other Problems/Disorders Musculoskeletal History: Reports: Hx Orthopedic Injury - Right wrist dislocation ; Fractrued left forearm; Left Patella Fx; Fx Femur;, Other Musculoskeletal History - see above Sensory History: Denies: Other Sensory Impairments Opthamlomology History: Denies: Other Sensory Impairments Neurological History: Reports: Hx Migraine, Other Neuro Impairments/Disorders - BACK INJURY 2007- MUSCLES Denies: Hx Dementia, Hx Seizures Psychiatric History: Reports: Hx Anxiety, Hx Depression, Hx Bipolar Disorder, Hx Substance Abuse - synthetic drugs 1 yr ago Denies: Hx Eating Disorder, Hx of Violent Episodes Against Others, Other Psychiatric Issues/Disorders - Surgical History Surgery Procedure, Year, and Place: 2012 orif right wrist/left jaw orif/orif left femur-knee cap - Immunization History Date of Tetanus Vaccine: Up to date Date of Influenza Vaccine: None Infectious Disease History: No Infectious Disease History: Reports: Hx Hepatitis - hep c Denies: Hx Clostridium Difficile, Hx Human Immunodeficiency Virus (HIV), Hx Shingles, Hx Tuberculosis, Hx Known/Suspected VRE, Hx Known/Suspected VRSA, History Other Infectious Disease, Traveled Outside the [place] in Last 30 Days Comment Only: Hx of Known/Suspected MRSA - has had staph on his face - Family History Known Family History: Positive: Cardiac Disease, Hypertension, Diabetes, Other - thyroid disease - Social History Alcohol Use: None Hx Substance Use: Yes Substance Use Type: Reports: None Substance Use Comment - 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 Negative: Chills Eyes: Negative ENT: Negative Cardiovascular: Negative Respiratory: Negative Positive: Abdominal Pain - LUQ, Nausea. Negative: Vomiting, Diarrhea Genitourinary: Negative Musculoskeletal: Negative Skin: Negative Neurological: Negative Psychological: Normal All Other Systems Reviewed And Are Negative: Yes Physical Exam - Summary Physical Exam Summary: VITAL SIGNS: Reviewed. GENERAL: Patient is a well developed and nourished male who is lying comfortable in the stretcher. Patient is not in any acute respiratory distress. HEAD AND FACE: Normocephalic and atraumatic. EYES: PERRLA, EOMI x 2, No injected conjunctiva. EARS: Hearing grossly intact. Ear canals and tympanic membranes are WNL. MOUTH: Oropharynx within normal limits. NECK: Supple, trachea is midline, no adenopathy, no JVD. CHEST: Symmetric, no tenderness at palpation LUNGS: Clear to auscultation bilaterally. No wheezing or crackles. CVS: RRR,, S1 and S2 present, no murmurs or gallops appreciated. ABDOMEN: Soft, mild tenderness in the LUQ. No signs of distention. Positive bowel sounds. No rebound no guarding, and no masses palpated. No abdominal bruit or pulsations. EXTREMITIES: FROM in all major joints, no edema, no cyanosis or clubbing. NEURO: Alert and oriented x 3. No acute neurological deficits. Speech is normal. SKIN: Dry and warm Triage Information Reviewed: Yes Vital Signs On Initial Exam: Initial Vitals Temp Pulse Resp BP Pulse Ox 99.3 F 109 18 141/85 100 06/16/16 14:41 06/16/16 14:41 06/16/16 14:41 06/16/16 14:41 06/16/16 14:41 Vital Signs Reviewed: Yes Diagnostics - Vital Signs Vital Signs Temp Pulse Resp BP Pulse Ox 06/16/16 14:41 99.3 F 109 18 141/85 100 - Laboratory Lab Results: Lab Results 06/16/16 06/16/16 06/16/16 Range/Units 15:55 15:55 15:55 WBC 6.9 (3.5-10.8) 10^3/ul RBC 4.63 (4.0-5.4) 10^6/ul Hgb 13.6 L (14.0-18.0) g/dl Hct 41 L (42-52) % MCV 88 (80-94) fL MCH 29 (27-31) pg MCHC 33 (31-36) g/dl RDW 13 (10.5-15) % Plt Count 144 L (150-450) 10^3/ul MPV 10 (7.4-10.4) um3 Neut % (Auto) 54.2 (38-83) % Lymph % (Auto) 33.8 (25-47) % [place] % (Auto) 8.6 (1-9) % Eos % (Auto) 2.8 (0-6) % Baso % (Auto) 0.6 (0-2) % Absolute Neuts (auto) 3.7 (1.5-7.7) 10^3/ul Absolute Lymphs (auto) 2.3 (1.0-4.8) 10^3/ul Absolute Monos (auto) 0.6 (0-0.8) 10^3/ul Absolute Eos (auto) 0.2 (0-0.6) 10^3/ul Absolute Basos (auto) 0 (0-0.2) 10^3/ul Absolute Nucleated RBC 0 10^3/ul Nucleated RBC % 0 Sodium 139 (133-145) mmol/L Potassium 3.9 (3.5-5.0) mmol/L Chloride 105 (101-111) mmol/L Carbon Dioxide 29 (22-32) mmol/L Anion Gap 5 (2-11) mmol/L BUN 13 (6-24) mg/dL Creatinine 0.76 (0.67-1.17) mg/dL Est GFR ( Amer) 159.4 (>60) Est GFR (Non-Af Amer) 124.0 (>60) BUN/Creatinine Ratio 17.1 (8-20) Glucose 94 (70-100) mg/dL Lactic Acid (0.5-2.0) mmol/L Calcium 9.3 (8.6-10.3) mg/dL Total Bilirubin 0.50 (0.2-1.0) mg/dL AST 9 L (13-39) U/L ALT 12 (7-52) U/L Alkaline Phosphatase 59 (34-104) U/L C-Reactive Protein 1.98 (< 5.00) mg/L Total Protein 6.8 (6.4-8.9) g/dL Albumin 4.3 (3.2-5.2) g/dL Globulin 2.5 (2-4) g/dL Albumin/Globulin Ratio 1.7 (1-3) Lipase 20 (11.0-82.0) U/L Urine Color Yellow Urine Appearance Clear Urine pH 6.0 (5-9) Ur Specific [place] 1.010 (1.010-1.030) Urine Protein Negative (Negative) Urine Ketones Negative (Negative) Urine Blood Negative (Negative) Urine Nitrate Negative (Negative) Urine Bilirubin Negative (Negative) Urine Urobilinogen Negative (Negative) Ur Leukocyte Esterase Negative (Negative) Urine Glucose Negative (Negative) 06/16/16 Range/Units 15:55 WBC (3.5-10.8) 10^3/ul RBC (4.0-5.4) 10^6/ul Hgb (14.0-18.0) g/dl Hct (42-52) % MCV (80-94) fL MCH (27-31) pg MCHC (31-36) g/dl RDW (10.5-15) % Plt Count (150-450) 10^3/ul MPV (7.4-10.4) um3 Neut % (Auto) (38-83) % Lymph % (Auto) (25-47) % [place] % (Auto) (1-9) % Eos % (Auto) (0-6) % Baso % (Auto) (0-2) % Absolute Neuts (auto) (1.5-7.7) 10^3/ul Absolute Lymphs (auto) (1.0-4.8) 10^3/ul Absolute Monos (auto) (0-0.8) 10^3/ul Absolute Eos (auto) (0-0.6) 10^3/ul Absolute Basos (auto) (0-0.2) 10^3/ul Absolute Nucleated RBC 10^3/ul Nucleated RBC % Sodium (133-145) mmol/L Potassium (3.5-5.0) mmol/L Chloride (101-111) mmol/L Carbon Dioxide (22-32) mmol/L Anion Gap (2-11) mmol/L BUN (6-24) mg/dL Creatinine (0.67-1.17) mg/dL Est GFR ( Amer) (>60) Est GFR (Non-Af Amer) (>60) BUN/Creatinine Ratio (8-20) Glucose (70-100) mg/dL Lactic Acid 1.1 (0.5-2.0) mmol/L Calcium (8.6-10.3) mg/dL Total Bilirubin (0.2-1.0) mg/dL AST (13-39) U/L ALT (7-52) U/L Alkaline Phosphatase (34-104) U/L C-Reactive Protein (< 5.00) mg/L Total Protein (6.4-8.9) g/dL Albumin (3.2-5.2) g/dL Globulin (2-4) g/dL Albumin/Globulin Ratio (1-3) Lipase (11.0-82.0) U/L Urine Color Urine Appearance Urine pH (5-9) Ur Specific [place] (1.010-1.030) Urine Protein (Negative) Urine Ketones (Negative) Urine Blood (Negative) Urine Nitrate (Negative) Urine Bilirubin (Negative) Urine Urobilinogen (Negative) Ur Leukocyte Esterase (Negative) Urine Glucose (Negative) Result Diagrams: 06/16/16 15:55 06/16/16 15:55 Lab Statement: Any lab studies that have been ordered have been reviewed, and results considered in the medical decision making process. Abdominal Pain Fem Course/Dx - Course Assessment/Plan: A 25 y/o male presents to the ED with gradually worsening LUQ abdominal pain since 2 days ago. The pain is currently rated 6/10 in severity. The patient was here on 06/10/16 and was Dx with intussusception. Associated symptoms currently include nausea and subjective fever - yesterday. The patient denies vomiting, diarrhea, constipation, and chills. Blood work shows a WBC of 6.9, slight anemia, CRP 1.8. Otherwise blood work WNL. As recommended by Dr. Montanez the patient was given 1 ibuprofen for pain and since he reports thats actually improving his symptoms the CT A/P will not be repated. After ibuprofen the pain is now rated 2/10. The patient will be discharged home with follow-up from Dr. Penn tomorrow. He was instructed to return to the ED if he has increased pain, n/v/d, or any other symptoms. The patient understands and agrees. He is hemodynamically stable and A&Ox3. I discussed all the findings and test results with the patient. Patient was instructed to return to the emergency room immediately if any of the symptoms return or worsens. They were explained the possibility of an early abdominal pathology which was not detected at this time despite the physical exam and testing. They understand and agree. Abdominal exam before discharge: Soft, NT. No signs of distention. BS present. No rebound no guarding, and no masses palpated. Patient is alert and oriented and hemodynamically stable. Patient is to follow up with primary care physician in the next 2 to 3 days. Patient agree and understands. - Diagnoses Differential Diagnosis/HQI/PQRI: Constipation, Urinary Tract Infection, Other Provider Diagnoses: abdominal pain - Provider Notifications Discussed Care Of Patient With: Dr. Montanez (Surgery) at 15:29 -- Notified of paitent's history. Dr. Montanez requested blood work. If WBC and C - reactive protein are WNL then he recommends not repeating the abdominal CT Discharge - Discharge Plan Condition: Stable Disposition: HOME Patient Education Materials: Abdominal Pain (ED) Referrals: Fransisco Montanez MD [Medical Doctor] - 1 Day Additional Instructions: Please follow-up with Dr. Montanez's office tomorrow. Please return to the ED if you developed increased pain, nausea, vomiting, diarrhea, or any other symptoms. The documentation as recorded by the Kenji cox Matthew accurately reflects the service I personally performed and the decisions made by me, Jesus España MD.
== END 2016-06-16 17:19 | disposition home or self-care (01) ==
LOC: ED 14:34
DX: R10.12 Left upper quadrant pain (principal); J44.9 Chronic obstructive pulmonary disease, unspecified; I10 Essential (primary) hypertension; F17.210 Nicotine dependence, cigarettes, uncomplicated; Z88.0 Allergy status to penicillin
CPT/HCPCS: 36415; 80053; 81003; 83605; 83690; 85025; 86140; 99282; A9270-GY

== ENCOUNTER 2016-06-25 21:57 | Emergency (ER) | payer SELFPAY ==
[2016-06-26] MEDS ORDERED: Ondansetron INJ* 2 MG/ML VIAL IV ONE (00:09)
[2016-06-26] MEDS ORDERED: NS 0.9% 1000 ML* 1,000 ML IV ONE (00:09)
[2016-06-26 00:43] LABS: Hematocrit 41 % (42-52); Hemoglobin 13.6 g/dl (14.0-18.0); Mean Corpuscular HGB Conc 33 g/dl (31-36); Mean Corpuscular Hemoglobin 29 pg (27-31); Mean Corpuscular Volume 88 fL (80-94); Mean Platelet Volume 10 um3 (7.4-10.4); Red Blood Count 4.63 10^6/ul (4.0-5.4); Red Cell Distribution Width 13 % (10.5-15); White Blood Count 9.2 10^3/ul (3.5-10.8)
[2016-06-26 00:45] LABS: ALT 17 U/L (7-52); AST 12 U/L (13-39); Albumin 4.4 g/dL (3.2-5.2); Alkaline Phosphatase 61 U/L (34-104); Anion Gap 7 mmol/L (2-11); BUN/Creatinine Ratio 19.4 (8-20); Blood Urea Nitrogen 14 mg/dL (6-24); C Reactive Protein < 1.00 mg/L (< 5.00); CO2 Carbon Dioxide 26 mmol/L (22-32); Calcium 9.2 mg/dL (8.6-10.3); Chloride 104 mmol/L (101-111); EGFR African American 169.7 (>60); Globulin 2.3 g/dL (2-4); Glucose 79 mg/dL (70-100); Lipase 38 U/L (11.0-82.0); Potassium 3.7 mmol/L (3.5-5.0); Sodium 137 mmol/L (133-145); Total Protein 6.7 g/dL (6.4-8.9)
[2016-06-26 02:19] VITALS: BP 127/84
[2016-06-26 02:31] LABS: Urine Bilirubin Negative (Negative); Urine Glucose Negative (Negative); Urine Nitrite Negative (Negative)
--- NOTE | 2016-07-05 23:25 | ED ---
Wendy Brewer Alok, scribed for Jose De Jesus Harper MD on 06/26/16 at 0023 . Abdominal Pain/Male - HPI Summary HPI Summary: 25 y/o male presents to the ED with left sided flank pain starting two weeks ago. His flank pain is described as a stabbing pain for which he saw Dr Thompson ( Urology) for one week ago with no results. Pt states that earlier today while at work this flank pain worsened to the point of not being able to stand up, prompting his visit to the ED. Pt adds hx of Hepatitis C and notes allergies to Penicillin, Prednisone, Toradol, and Flonase. - History of Current Complaint Chief Complaint: EDChestWallPain Stated Complaint: LEFT SIDE UPPER ABD PAIN Time Seen by Provider: 06/26/16 00:02 Hx Obtained From: Patient Onset/Duration: Gradual Onset, Lasting Weeks, Still Present, Worse Since - Mid- day today Timing: Intermittent Severity Initially: Moderate Severity Currently: Moderate Pain Intensity: 4 Pain Scale Used: 0-10 Numeric Location: Flank - Left Radiates: No Character: Sharp Aggravating Factor(s): Nothing Alleviating Factor(s): Nothing - Allergies/Home Medications Allergies/Adverse Reactions: Allergies Allergy/AdvReac Type Severity Reaction Status Date / Time Fluticasone [From Flonase] Allergy Intermediate vomiting Verified 06/16/16 14:47 blood Penicillins [PCN] Allergy Intermediate Vomiting Verified 06/16/16 14:47 Prednisone Allergy Intermediate vomit blood Verified 06/16/16 14:47 Ketorolac Tromethamine Allergy See Comment Verified 06/16/16 14:47 [From Toradol] Molds & Smuts Allergy Congestion Verified 06/16/16 14:47 white vinegar Allergy Rash Uncoded 06/16/16 14:47 PMH/Surg Hx/FS Hx/Imm Hx Endocrine/Hematology History: Denies: Hx Anticoagulant Therapy, Hx Diabetes, Hx Thyroid Disease, Other Endocrine/Hematological Disorders Cardiovascular History: Reports: Hx Hypertension - PRE-HTN, Other Cardiovascular Problems/Disorders - FLUTTERS Denies: Hx Pacemaker/ICD Respiratory History: Reports: Hx Chronic Bronchitis, Hx Chronic Obstructive Pulmonary Disease (COPD) Denies: Hx Asthma, Other Respiratory Problems/Disorders GI History: Reports: Hx Gastroesophageal Reflux Disease, Hx Hiatal Hernia, Other GI Disorders - hiatal hernia Denies: Hx Ulcer History: Denies: Hx Renal Disease, Other Problems/Disorders Musculoskeletal History: Reports: Hx Orthopedic Injury - Right wrist dislocation ; Fractrued left forearm; Left Patella Fx; Fx Femur;, Other Musculoskeletal History - see above Sensory History: Denies: Other Sensory Impairments Opthamlomology History: Denies: Other Sensory Impairments Neurological History: Reports: Hx Migraine, Other Neuro Impairments/Disorders - BACK INJURY 2007- MUSCLES Denies: Hx Dementia, Hx Seizures Psychiatric History: Reports: Hx Anxiety, Hx Depression, Hx Bipolar Disorder, Hx Substance Abuse - synthetic drugs 1 yr ago Denies: Hx Eating Disorder, Hx of Violent Episodes Against Others, Other Psychiatric Issues/Disorders - Surgical History Surgery Procedure, Year, and Place: 2012 orif right wrist/left jaw orif/orif left femur-knee cap - Immunization History Date of Tetanus Vaccine: Up to date Date of Influenza Vaccine: None Infectious Disease History: No Infectious Disease History: Reports: Hx Hepatitis - hep c Denies: Hx Clostridium Difficile, Hx Human Immunodeficiency Virus (HIV), Hx Shingles, Hx Tuberculosis, Hx Known/Suspected VRE, Hx Known/Suspected VRSA, History Other Infectious Disease, Traveled Outside the [place] in Last 30 Days Comment Only: Hx of Known/Suspected MRSA - has had staph on his face - Family History Known Family History: Positive: Cardiac Disease, Hypertension, Diabetes, Other - thyroid disease - Social History Occupation: Employed Full-time Lives: With Family - Grandfather Alcohol Use: None Hx Substance Use: Yes Substance Use Type: Reports: None Substance Use Comment - 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 Hx Tobacco Use: Yes Smoking Status (MU): Current Every Day Smoker Type: Cigarettes Amount Used/How Often: 1/2 PPD Length of Time of Smoking/Using Tobacco: 14 years Have You Smoked in the Last Year: No Review of Systems Negative: Fever Positive: flank pain - Left All Other Systems Reviewed And Are Negative: Yes Physical Exam Vital Signs On Initial Exam: Initial Vitals Temp Pulse Resp BP Pulse Ox 98.5 F 93 20 123/75 100 06/25/16 22:06 06/25/16 22:06 06/25/16 22:06 06/25/16 22:06 06/25/16 22:06 - Sydni Coma Scale Coma Scale Total: 15 Diagnostics - Vital Signs Vital Signs Temp Pulse Resp BP Pulse Ox 06/25/16 22:37 98.5 F 93 16 123/75 100 06/25/16 22:06 98.5 F 93 20 123/75 100 - Laboratory Lab Results: Lab Results 06/26/16 06/26/16 06/26/16 Range/Units 00:20 00:20 00:20 WBC 9.2 (3.5-10.8) 10^3/ul RBC 4.63 (4.0-5.4) 10^6/ul Hgb 13.6 L (14.0-18.0) g/dl Hct 41 L (42-52) % MCV 88 (80-94) fL MCH 29 (27-31) pg MCHC 33 (31-36) g/dl RDW 13 (10.5-15) % Plt Count 159 (150-450) 10^3/ul MPV 10 (7.4-10.4) um3 Neut % (Auto) 55.4 (38-83) % Lymph % (Auto) 31.8 (25-47) % [place] % (Auto) 8.2 (1-9) % Eos % (Auto) 3.1 (0-6) % Baso % (Auto) 1.5 (0-2) % Absolute Neuts (auto) 5.1 (1.5-7.7) 10^3/ul Absolute Lymphs (auto) 2.9 (1.0-4.8) 10^3/ul Absolute Monos (auto) 0.8 (0-0.8) 10^3/ul Absolute Eos (auto) 0.3 (0-0.6) 10^3/ul Absolute Basos (auto) 0.1 (0-0.2) 10^3/ul Absolute Nucleated RBC 0 10^3/ul Nucleated RBC % 0 Sodium 137 (133-145) mmol/L Potassium 3.7 (3.5-5.0) mmol/L Chloride 104 (101-111) mmol/L Carbon Dioxide 26 (22-32) mmol/L Anion Gap 7 (2-11) mmol/L BUN 14 (6-24) mg/dL Creatinine 0.72 (0.67-1.17) mg/dL Est GFR ( Amer) 169.7 (>60) Est GFR (Non-Af Amer) 132.0 (>60) BUN/Creatinine Ratio 19.4 (8-20) Glucose 79 (70-100) mg/dL Lactic Acid 0.7 (0.5-2.0) mmol/L Calcium 9.2 (8.6-10.3) mg/dL Magnesium 2.0 (1.9-2.7) mg/dL Total Bilirubin 0.40 (0.2-1.0) mg/dL AST 12 L (13-39) U/L ALT 17 (7-52) U/L Alkaline Phosphatase 61 (34-104) U/L C-Reactive Protein < 1.00 (< 5.00) mg/L Total Protein 6.7 (6.4-8.9) g/dL Albumin 4.4 (3.2-5.2) g/dL Globulin 2.3 (2-4) g/dL Albumin/Globulin Ratio 1.9 (1-3) Lipase 38 (11.0-82.0) U/L Urine Color Urine Appearance Urine pH (5-9) Ur Specific [place] (1.010-1.030) Urine Protein (Negative) Urine Ketones (Negative) Urine Blood (Negative) Urine Nitrate (Negative) Urine Bilirubin (Negative) Urine Urobilinogen (Negative) Ur Leukocyte Esterase (Negative) Urine Glucose (Negative) 06/26/16 Range/Units 01:47 WBC (3.5-10.8) 10^3/ul RBC (4.0-5.4) 10^6/ul Hgb (14.0-18.0) g/dl Hct (42-52) % MCV (80-94) fL MCH (27-31) pg MCHC (31-36) g/dl RDW (10.5-15) % Plt Count (150-450) 10^3/ul MPV (7.4-10.4) um3 Neut % (Auto) (38-83) % Lymph % (Auto) (25-47) % [place] % (Auto) (1-9) % Eos % (Auto) (0-6) % Baso % (Auto) (0-2) % Absolute Neuts (auto) (1.5-7.7) 10^3/ul Absolute Lymphs (auto) (1.0-4.8) 10^3/ul Absolute Monos (auto) (0-0.8) 10^3/ul Absolute Eos (auto) (0-0.6) 10^3/ul Absolute Basos (auto) (0-0.2) 10^3/ul Absolute Nucleated RBC 10^3/ul Nucleated RBC % Sodium (133-145) mmol/L Potassium (3.5-5.0) mmol/L Chloride (101-111) mmol/L Carbon Dioxide (22-32) mmol/L Anion Gap (2-11) mmol/L BUN (6-24) mg/dL Creatinine (0.67-1.17) mg/dL Est GFR ( Amer) (>60) Est GFR (Non-Af Amer) (>60) BUN/Creatinine Ratio (8-20) Glucose (70-100) mg/dL Lactic Acid (0.5-2.0) mmol/L Calcium (8.6-10.3) mg/dL Magnesium (1.9-2.7) mg/dL Total Bilirubin (0.2-1.0) mg/dL AST (13-39) U/L ALT (7-52) U/L Alkaline Phosphatase (34-104) U/L C-Reactive Protein (< 5.00) mg/L Total Protein (6.4-8.9) g/dL Albumin (3.2-5.2) g/dL Globulin (2-4) g/dL Albumin/Globulin Ratio (1-3) Lipase (11.0-82.0) U/L Urine Color Yellow Urine Appearance Clear Urine pH 5.0 (5-9) Ur Specific [place] 1.018 (1.010-1.030) Urine Protein Negative (Negative) Urine Ketones Trace H (Negative) Urine Blood Negative (Negative) Urine Nitrate Negative (Negative) Urine Bilirubin Negative (Negative) Urine Urobilinogen Negative (Negative) Ur Leukocyte Esterase Negative (Negative) Urine Glucose Negative (Negative) Result Diagrams: 06/26/16 00:20 06/26/16 00:20 Lab Statement: Any lab studies that have been ordered have been reviewed, and results considered in the medical decision making process. Re-Evaluation - Re-Evaluation First Eval Re-Evaluation Time: 02:04 Change: Improved Abdominal Pain Fem Course/Dx - Diagnoses Provider Diagnoses: Abdominal pain Discharge - Discharge Plan Condition: Stable Disposition: HOME Patient Education Materials: Abdominal Pain (ED) Referrals: Cheng Terrazas MD [Primary Care Provider] - The documentation as recorded by the Wendy cox Alok accurately reflects the service I personally performed and the decisions made by me, Jose De Jesus Harper MD.
== END 2016-06-26 02:18 | disposition home or self-care (01) ==
LOC: ED 21:57
DX: R10.84 Generalized abdominal pain (principal); F17.210 Nicotine dependence, cigarettes, uncomplicated
CPT/HCPCS: 36415; 80053; 81003; 83605; 83690; 83735; 85025; 86140; 96372; 99282; J2405

== ENCOUNTER 2016-07-07 20:47 | Emergency (ER) | payer SELFPAY ==
[2016-07-07] MEDS ORDERED: traMADol TAB* 50 MG PO ONE (22:03)
[2016-07-07] MEDS ORDERED: LORazepam TAB(*) 1 MG PO ONE (22:03)
--- NOTE | 2016-07-07 22:10 | ED ---
Throat Pain/Nasal Congestion - HPI Summary HPI Summary: 25M presents with dental pain for 2 days. He states that both his upper and lower tooth on left side hurt in the areas that he has cavities. He states that the pain travels to his left ear and eye. He admits to blurry vision and pain with eye movement. He states that he feels that the area around his eyes is swollen. He denies any fevers, difficulty swallowing, chest pain or SOB. He denies any abscess of his tooth. He states he has an appointment with his dentist in July. He has taken ibuprofen and Tylenol today without relief. - History of Current Complaint Chief Complaint: EDDentalPain Time Seen by Provider: 07/07/16 21:41 - Allergies/Home Medications Allergies/Adverse Reactions: Allergies Allergy/AdvReac Type Severity Reaction Status Date / Time Fluticasone [From Flonase] Allergy Intermediate vomiting Verified 06/16/16 14:47 blood Penicillins [PCN] Allergy Intermediate Vomiting Verified 06/16/16 14:47 Prednisone Allergy Intermediate vomit blood Verified 06/16/16 14:47 Ketorolac Tromethamine Allergy See Comment Verified 06/16/16 14:47 [From Toradol] Molds & Smuts Allergy Congestion Verified 06/16/16 14:47 white vinegar Allergy Rash Uncoded 06/16/16 14:47 PMH/Surg Hx/FS Hx/Imm Hx Endocrine/Hematology History: Denies: Hx Anticoagulant Therapy, Hx Diabetes, Hx Thyroid Disease, Other Endocrine/Hematological Disorders Cardiovascular History: Reports: Hx Hypertension - PRE-HTN, Other Cardiovascular Problems/Disorders - FLUTTERS Denies: Hx Pacemaker/ICD Respiratory History: Reports: Hx Chronic Bronchitis, Hx Chronic Obstructive Pulmonary Disease (COPD) Denies: Hx Asthma, Other Respiratory Problems/Disorders GI History: Reports: Hx Gastroesophageal Reflux Disease, Hx Hiatal Hernia, Other GI Disorders - hiatal hernia Denies: Hx Ulcer History: Denies: Hx Renal Disease, Other Problems/Disorders Musculoskeletal History: Reports: Hx Orthopedic Injury - Right wrist dislocation ; Fractrued left forearm; Left Patella Fx; Fx Femur;, Other Musculoskeletal History - see above Sensory History: Denies: Other Sensory Impairments Opthamlomology History: Denies: Other Sensory Impairments Neurological History: Reports: Hx Migraine, Other Neuro Impairments/Disorders - BACK INJURY 2007- MUSCLES Denies: Hx Dementia, Hx Seizures Psychiatric History: Reports: Hx Anxiety, Hx Depression, Hx Bipolar Disorder, Hx Substance Abuse - synthetic drugs 1 yr ago Denies: Hx Eating Disorder, Hx of Violent Episodes Against Others, Other Psychiatric Issues/Disorders - Surgical History Surgery Procedure, Year, and Place: 2012 orif right wrist/left jaw orif/orif left femur-knee cap - Immunization History Date of Tetanus Vaccine: Up to date Date of Influenza Vaccine: None Infectious Disease History: Yes Infectious Disease History: Reports: Hx Hepatitis - hep c Denies: Hx Clostridium Difficile, Hx Human Immunodeficiency Virus (HIV), Hx Shingles, Hx Tuberculosis, Hx Known/Suspected VRE, Hx Known/Suspected VRSA, History Other Infectious Disease, Traveled Outside the [place] in Last 30 Days Comment Only: Hx of Known/Suspected MRSA - has had staph on his face - Family History Known Family History: Positive: Unknown, Cardiac Disease, Hypertension, Diabetes , Other - thyroid disease - Social History Alcohol Use: None Hx Substance Use: Yes Substance Use Type: Reports: None Substance Use Comment - 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 Negative: Sore Throat Negative: Chest Pain Negative: Shortness Of Breath All Other Systems Reviewed And Are Negative: Yes Physical Exam Triage Information Reviewed: Yes Vital Signs On Initial Exam: Initial Vitals Temp Pulse Resp BP Pulse Ox 97.9 F 107 16 145/83 100 07/07/16 20:49 07/07/16 20:49 07/07/16 20:49 07/07/16 20:49 07/07/16 20:49 Vital Signs Reviewed: Yes Appearance: Positive: Well-Appearing Skin: Positive: Warm, Dry Head/Face: Positive: Normal Head/Face Inspection Eyes: Positive: Normal, EOMI - states pain with EOM, KALE, Conjunctiva Clear ENT: Positive: Normal ENT inspection, Pharynx normal, TMs normal Dental: Positive: Percussion Tenderness @ - 15,18, Gross Decay/Caries @ - 15,18 Respiratory/Lung Sounds: Positive: Clear to Auscultation, Breath Sounds Present Cardiovascular: Positive: Normal, RRR - [place] Coma Scale Coma Scale Total: 15 Diagnostics - Vital Signs Vital Signs Temp Pulse Resp BP Pulse Ox 07/07/16 21:55 98.2 F 92 18 133/96 100 07/07/16 20:49 97.9 F 107 16 145/83 100 - Laboratory Result Diagrams: 07/07/16 22:40 07/07/16 22:40 Lab Statement: Any lab studies that have been ordered have been reviewed, and results considered in the medical decision making process. - CT maxillary facial CT Interpretation: No Acute Changes - mp facoa; spft tossie pr abscess. globes and orbits normal. CT Interpretation Completed By: Radiologist Re-Evaluation - Re-Evaluation First Eval Re-Evaluation Time: 23:30 Change: Unchanged Comment: pain still bad Second Eval Re-Evaluation Time: 01:55 Change: Improved Comment: is sleeping EENT Course/Dx - Course Course Of Treatment: 25M presents with dental pain for 2 days. pain is located in 15,18 tooth, no abscess noted. states pain goes into left eye and ear. states has pain with eye movement but no preseptal cellulitis is seen on exam. due to potential for postseptal cellulitis with pain with eye movement will have CT performed. normal WBC count. CT normal so no postseptal cellulitis. will treat with clindamycin for potential dental infection and told needs to follow up with dentist. patient understands and agrees with plan - Differential Diagnoses Differential Diagnoses: Dental Abscess, Dental Caries, Fractured Tooth - Diagnoses Provider Diagnoses: Dental caries Discharge - Discharge Plan Condition: Good Disposition: HOME Prescriptions: Clindamycin CAP* [Cleocin 150 MG CAP*] 450 mg PO TID #60 cap traMADol TAB* [Ultram*] 50 mg PO Q8H PRN #9 tab MDD 3 PRN Reason: Pain Patient Education Materials: Dental Caries (ED) Referrals: Cheng Terrazas MD [Primary Care Provider] - Additional Instructions: Take antibiotics: 3 tablets three times a day for 7 days, first dose given in ED Use ibuprofen every 6 hours for pain, use narcotic every 8 hours for break through pain Inc fiber intake Avoid hard, crunchy food until seen by dentist follow up with dentist as soon as possible Return to ED if develop fever, shortness of breath, or any new or worsening symptoms
[2016-07-07 22:45] LABS: Hematocrit 41 % (42-52); Hemoglobin 13.6 g/dl (14.0-18.0); Mean Corpuscular HGB Conc 33 g/dl (31-36); Mean Corpuscular Hemoglobin 29 pg (27-31); Mean Corpuscular Volume 89 fL (80-94); Mean Platelet Volume 11 um3 (7.4-10.4); Red Blood Count 4.65 10^6/ul (4.0-5.4); Red Cell Distribution Width 13 % (10.5-15); White Blood Count 8.2 10^3/ul (3.5-10.8)
[2016-07-07 23:00] LABS: ALT 17 U/L (7-52); Albumin 4.2 g/dL (3.2-5.2); Alkaline Phosphatase 67 U/L (34-104); BUN/Creatinine Ratio 13.4 (8-20); Blood Urea Nitrogen 9 mg/dL (6-24); CO2 Carbon Dioxide 26 mmol/L (22-32); Calcium 9.1 mg/dL (8.6-10.3); Chloride 106 mmol/L (101-111); EGFR African American 184.4 (>60); EGFR Non-African American 143.4 (>60); Globulin 2.5 g/dL (2-4); Glucose 88 mg/dL (70-100); Sodium 137 mmol/L (133-145); Total Protein 6.7 g/dL (6.4-8.9)
[2016-07-07] MEDS ORDERED: Iohexol 300* (CONTRAST) 10 ML SDV IV ONE (23:02)
[2016-07-07] MEDS ORDERED: Morphine INJ* 4 MG/ML 1 ML SYRINGE IV ONE (23:48)
[2016-07-07] MEDS ORDERED: Morphine INJ* 2 MG/ML 1 ML SYRINGE IV ONE (23:49)
[2016-07-08] MEDS ORDERED: Clindamycin CAP* 150 MG PO ONE (02:18)
[2016-07-08 02:59] VITALS: BP 125/78
--- NOTE | 2016-07-08 08:05 | RAD ---
HISTORY: Pain, left-sided jaw pain, left ear pain, visual changes COMPARISONS: December 14, 2007 TECHNIQUE: Multiple contiguous axial CT scans were obtained of the face and neck with intravenous contrast, with coronal and sagittal multiplanar reformations. FINDINGS: BONES: There is no displaced fracture or dislocation. The orbital rim is intact. The zygomatic arch is intact. The pterygoid plates are intact. The patient is status post internal fixation of the left mandible with a fixation plate and screws. There is no appreciable hardware failure or osteolysis. ORBITS: The globes are round. The optic nerves are symmetric. The extraocular musculature is normal. There is no post septal or intraconal inflammatory change. There is no retrobulbar hematoma. PARANASAL SINUSES: There is a mucous retention cyst of the left maxillary sinus BRAIN AND SOFT TISSUE: Unremarkable. The soft tissues of the neck including the thyroid gland are unremarkable. There are prominent but not pathologically level 2 lymph nodes measuring up to 0.9 cm in size. There is no appreciable lymphadenopathy by size criteria. The salivary glands are unremarkable. OTHER: There is extensive carious disease IMPRESSION: 1. POSTSURGICAL CHANGE TO LEFT MANDIBLE. 2. EXTENSIVE DENTAL CARIOUS DISEASE. 3. NO SIGNIFICANT SOFT TISSUE INFLAMMATORY CHANGE OR LOCULATED FLUID COLLECTION TO SUGGEST ABSCESS
== END 2016-07-08 03:05 | disposition home or self-care (01) ==
LOC: ED 20:47
DX: K02.9 Dental caries, unspecified (principal); H53.149 Visual discomfort, unspecified; F17.210 Nicotine dependence, cigarettes, uncomplicated
CPT/HCPCS: 36415; 70487; 80053; 85025; 96374; 99282; A9270-GY; J2270; Q9967

== ENCOUNTER 2016-07-15 20:43 | Emergency (ER) | payer SELFPAY ==
[2016-07-15 21:20] VITALS: BP 120/69
[2016-07-15] MEDS ORDERED: HYDROcodone/ACETAMIN 5-325 MG* 1 TAB PO ONE ×2 (21:26→22:01)
--- NOTE | 2016-07-15 21:31 | UC ---
Hand/Wrist HPI - HPI Summary HPI Summary: 25 YO MALE WITH THE SUDDEN ONSET OF RIGHT THUMB PAIN AFTER HITTING A ROCK WITH A MACHETE HE IS RIGHT HANDED UNABLE TO MOVE IP JOINT HX RIGHT WRIST FUSION - History Of Current Complaint Chief Complaint: UCUpperExtremity Stated Complaint: THUMB INJURY Time Seen by Provider: 07/15/16 21:20 Hx Obtained From: Patient Onset/Duration: Sudden Onset, Lasting Hours Severity Initially: Severe Severity Currently: Severe Pain Intensity: 8 Pain Scale Used: 0-10 Numeric Character Of Pain: Sharp, Aching Aggravating Factor(s): Movement Alleviating: Nothing Associated Signs And Symptoms: Positive: Swelling Related History: Dominant Hand Right - Allergies/Home Medications Allergies/Adverse Reactions: Allergies Allergy/AdvReac Type Severity Reaction Status Date / Time Fluticasone [From Flonase] Allergy Intermediate vomiting Verified 07/15/16 21:12 blood Penicillins [PCN] Allergy Intermediate Vomiting Verified 07/15/16 21:12 Prednisone Allergy Intermediate vomit blood Verified 07/15/16 21:12 Ketorolac Tromethamine Allergy See Comment Verified 07/15/16 21:12 [From Toradol] Molds & Smuts Allergy Congestion Verified 07/15/16 21:12 Tetanus Toxoid Allergy Vomiting Verified 07/15/16 21:21 white vinegar Allergy Rash Uncoded 07/15/16 21:12 PMH/Surg Hx/FS Hx/Imm Hx Previously Healthy: Yes Endocrine History Of: Denies: Diabetes, Thyroid Disease Cardiovascular History Of: Reports: Cardiac Disorders - flutter, Hypertension - PRE-HTN Denies: Pacemaker/ICD Respiratory History Of: Reports: COPD, Bronchitis - RECURRENT, X4 PER YEAR. Denies: Asthma GI/ History Of: Reports: Gastroesophageal Reflux - hiatal hernia Denies: Ulcer, Renal Disease Neurological History Of: Reports: Migraine Denies: CVA, Dementia, Seizures Psychological History Of: Reports: Anxiety, Depression, Bipolar Disorder Other History Of: Negative For: Anticoagulant Therapy - Surgical History Surgical History: Yes Surgery Procedure, Year, and Place: 2012 orif right wrist/left jaw orif/orif left femur-knee cap - Family History Known Family History: Positive: Cardiac Disease, Hypertension, Diabetes, Other - thyroid disease - Social History Alcohol Use: None Substance Use Type: None Substance Use Comment - 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 Smoking Status (MU): Light Every Day Tobacco Smoker Type: Cigarettes Amount Used/How Often: 1/2 PPD Length of Time of Smoking/Using Tobacco: 14 years Have You Smoked in the Last Year: No - Immunization History Most Recent Influenza Vaccination: never Most Recent Tetanus Shot: no, allergic Review of Systems Constitutional: Negative Skin: Negative Eyes: Negative ENT: Negative Respiratory: Negative Cardiovascular: Negative Gastrointestinal: Negative Genitourinary: Negative Motor: Negative Neurovascular: Negative Musculoskeletal: Arthralgia Neurological: Negative Psychological: Negative All Other Systems Reviewed And Are Negative: Yes Physical Exam Triage Information Reviewed: Yes Appearance: Well-Appearing, No Pain Distress, Well-Nourished Vital Signs: Initial Vital Signs Temp 99.0 F 07/15/16 21:14 Pulse 102 07/15/16 21:14 Resp 17 07/15/16 21:14 BP 120/69 07/15/16 21:14 Pulse Ox 97 07/15/16 21:14 Vital Signs Reviewed: Yes Eyes: Positive: Conjunctiva Clear ENT: Positive: Hearing grossly normal. Negative: Nasal congestion, Nasal drainage, Trismus, Muffled/hoarse voice Neck: Positive: Supple, Nontender, No Lymphadenopathy Respiratory: Positive: Lungs clear, Normal breath sounds, No respiratory distress Cardiovascular: Positive: RRR, No Murmur Musculoskeletal: Negative: ROM Intact Neurological: Positive: Alert, Muscle Tone Normal Psychological Exam: Normal Skin Exam: Normal Hand/Wrist Course/Dx - Differential Dx/Diagnosis Provider Diagnoses: RIGHT THUMB INJURY. UNABLE TO MOVE IP JOINT Discharge - Discharge Plan Condition: Stable Disposition: HOME Referrals: Manjula Riddle MD [Medical Doctor] - As Soon As Possible Additional Instructions: I AM NOT SURE WHY YOU CAN NOT MOVE YOUR THUMB I DID NOT SEE A FRACTURE OR DISLOCATION/THE RADIOLOGIST READ THE XR NORMAL REST ELEVATE THUMB SPICA SPLINT ADVIL 200MG 3 PILLS 4X DAY WITH FOOD FOR PAIN I SUGGEST YOU SEE AN ORTHOPEDIST Images Hands: 1 - TENDER/UNABLE TO MOVE 2 - HURTS HERE WELL 3 - MINIMAL TENDERNESS
--- NOTE | 2016-07-15 22:00 | RAD ---
INDICATION: Right thumb injury COMPARISON: Right wrist March 28, 2015 TECHNIQUE: AP, lateral, and oblique views were obtained. FINDINGS: There are no acute adenitis but the thumb. There are postoperative and degenerative changes about the wrist/metacarpal joint. There is no interval change. IMPRESSION: NO ACUTE PLAIN RADIOGRAPHIC ABNORMALITIES ABOUT THE THUMB
== END 2016-07-15 22:18 | disposition home or self-care (01) ==
LOC: UCEAST 20:43
DX: S69.91XA Unspecified injury of right wrist, hand and finger(s), initial encounter (principal); W22.8XXA Striking against or struck by other objects, initial encounter; Y93.89 Activity, other specified; Y92.9 Unspecified place or not applicable; I10 Essential (primary) hypertension; I48.92 Unspecified atrial flutter; J44.9 Chronic obstructive pulmonary disease, unspecified; K21.9 Gastro-esophageal reflux disease without esophagitis; G43.909 Migraine, unspecified, not intractable, without status migrainosus; F41.8 Other specified anxiety disorders; Z88.5 Allergy status to narcotic agent; Z88.7 Allergy status to serum and vaccine; Z88.0 Allergy status to penicillin; F17.210 Nicotine dependence, cigarettes, uncomplicated
CPT/HCPCS: 99213; G0463

== ENCOUNTER 2016-07-23 17:09 | Emergency (ER) | payer SELFPAY ==
[2016-07-23] MEDS ORDERED: HYDROcodone/ACETAMIN 5-325 MG* 1 TAB PO ONE ×2 (18:53→20:11)
--- NOTE | 2016-07-23 18:58 | ED ---
Lower Extremity - HPI Summary HPI Summary: PATIENT PRESENTS TO THE ED WITH CC OF RIGHT LOWER EXTREMITY PAIN AFTER A BOULDER FELL ON THE LEG JUST BELOW THE KNEE ABOUT 3 HOURS AGO. 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 HE REMAINED AMBULATORY UNTIL 20 MINUTES LATER WHEN HE FELT THAT IS LEG COLLAPSED AND HE HAS FELT WEAK SINCE THEN. DENIES ANKLE PAIN OR KNEE PAIN. PAIN IS VERY DISCRETE AT THE LEFT LOWER LEG JUST INFERIOR TO THE KNEE AND DOES NOT RADIATE. HE DENIES NUMBNESS AND TINGLING. PULSES INTACT +2 BILATERALLY. HE HAS NOT TRIED TO TAKE ANYTHING FOR RELIEF. PATIENT IS A SMOKER, DOES NOT DRINK OR DO DRUGS. PMHX INCLUDES HEP C. PAST SURG HX INCLUDES L PATELLAR REPAIR. - History of Current Complaint Chief Complaint: EDExtremityLower Stated Complaint: RT LEG INJURY Time Seen by Provider: 07/23/16 18:00 Hx Obtained From: Patient Mechanism Of Injury: Blunt Trauma Onset of Pain: Immediate Onset/Duration: Minutes Severity Initially: Moderate Severity Currently: Moderate Pain Intensity: 7 Pain Scale Used: 0-10 Numeric Timing: Constant Location: Is Discrete @ - RIGHT LOWER LEG JUST BELOW THE KNEE Associated Signs And Symptoms: Positive: Negative Aggravating Factor(s): Standing, Ambulation, Movement, Weight Bearing, Stairs Alleviating Factor(s): Rest Able to Bear Weight: Yes - Risk Factors Gout Risk Factors: Male DVT Risk Factors: Negative Septic Arthritis Risk Factor: Negative - Allergies/Home Medications Allergies/Adverse Reactions: Allergies Allergy/AdvReac Type Severity Reaction Status Date / Time Fluticasone [From Flonase] Allergy Intermediate vomiting Verified 07/15/16 21:12 blood Penicillins [PCN] Allergy Intermediate Vomiting Verified 07/15/16 21:12 Prednisone Allergy Intermediate vomit blood Verified 07/15/16 21:12 Ketorolac Tromethamine Allergy See Comment Verified 07/15/16 21:12 [From Toradol] Molds & Smuts Allergy Congestion Verified 07/15/16 21:12 Tetanus Toxoid Allergy Vomiting Verified 07/15/16 21:21 white vinegar Allergy Rash Uncoded 07/15/16 21:12 PMH/Surg Hx/FS Hx/Imm Hx Previously Healthy: Yes Endocrine/Hematology History: Denies: Hx Anticoagulant Therapy, Hx Diabetes, Hx Thyroid Disease, Other Endocrine/Hematological Disorders Cardiovascular History: Reports: Hx Hypertension - PRE-HTN, Other Cardiovascular Problems/Disorders - FLUTTERS Denies: Hx Pacemaker/ICD Respiratory History: Reports: Hx Chronic Bronchitis, Hx Chronic Obstructive Pulmonary Disease (COPD) Denies: Hx Asthma, Other Respiratory Problems/Disorders GI History: Reports: Hx Gastroesophageal Reflux Disease, Hx Hiatal Hernia, Other GI Disorders - hiatal hernia Denies: Hx Ulcer History: Denies: Hx Dialysis, Hx Renal Disease, Other Problems/Disorders Musculoskeletal History: Reports: Hx Orthopedic Injury - Right wrist dislocation ; Fractrued left forearm; Left Patella Fx; Fx Femur;, Other Musculoskeletal History - see above Sensory History: Denies: Other Sensory Impairments Opthamlomology History: Denies: Other Sensory Impairments Neurological History: Reports: Hx Migraine, Other Neuro Impairments/Disorders - BACK INJURY 2006- MUSCLES Denies: Hx Dementia, Hx Seizures Psychiatric History: Reports: Hx Anxiety, Hx Depression, Hx Bipolar Disorder, Hx Substance Abuse - synthetic drugs 1 yr ago Denies: Hx Eating Disorder, Hx of Violent Episodes Against Others, Other Psychiatric Issues/Disorders - Surgical History Surgery Procedure, Year, and Place: 2012 orif right wrist/left jaw orif/orif left femur-knee cap - Immunization History Date of Tetanus Vaccine: Up to date Date of Influenza Vaccine: None Infectious Disease History: Yes Infectious Disease History: Reports: Hx Hepatitis - hep c Denies: Hx Clostridium Difficile, Hx Human Immunodeficiency Virus (HIV), Hx of Known/Suspected MRSA - has had staph on his face, Hx Shingles, Hx Tuberculosis, Hx Known/Suspected VRE, Hx Known/Suspected VRSA, History Other Infectious Disease, Traveled Outside the [place] in Last 30 Days - Family History Known Family History: Positive: Cardiac Disease, Hypertension, Diabetes, Other - thyroid disease - Social History Occupation: Employed Full-time Lives: With Family Alcohol Use: None Hx Substance Use: Yes Substance Use Type: Reports: None Substance Use Comment - 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 Hx Tobacco Use: Yes Smoking Status (MU): Light Every Day Tobacco Smoker Type: Cigarettes Amount Used/How Often: 1/2 PPD Length of Time of Smoking/Using Tobacco: 14 years Have You Smoked in the Last Year: No Household Exposure: No Review of Systems Constitutional: Negative Cardiovascular: Negative Positive: Shortness Of Breath Positive: Arthralgia - PAIN BELOW RIGHT LOWER KNEE Positive: Bruising Neurological: Negative Psychological: Normal All Other Systems Reviewed And Are Negative: Yes Physical Exam Triage Information Reviewed: Yes Vital Signs On Initial Exam: Initial Vitals Temp Pulse Resp BP Pulse Ox 98.3 F 93 16 125/73 100 07/23/16 17:11 07/23/16 17:11 07/23/16 17:11 07/23/16 17:11 07/23/16 17:11 Vital Signs Reviewed: Yes Appearance: Positive: Well-Appearing, No Pain Distress, Well-Nourished Skin: Positive: Skin Color Reflects Adequate Perfusion, Other - BRUISING AND SMALL ABRASION JUST BELOW THE RIGHT KNEE Head/Face: Positive: Normal Head/Face Inspection Eyes: Positive: EOMI, KALE Neck: Positive: Supple, No Lymphadenopathy Respiratory/Lung Sounds: Positive: Clear to Auscultation, Breath Sounds Present Cardiovascular: Positive: RRR Musculoskeletal: Positive: Other - ROM OK. PAIN IS WORSE ON PALPATION JUST BELOW THE KNEE. NO PAIN ON [place]ON OVER THE RIGHT KNEE OR RIGHT ANKLE. PULSES INTACT +2 BILATERALLY. Neurological: Positive: Normal, Sensory/Motor Intact, Alert, Oriented to Person Place, Time Psychiatric: Positive: Normal AVPU Assessment: Alert Diagnostics - Vital Signs Vital Signs Temp Pulse Resp BP Pulse Ox 07/23/16 18:35 98.7 F 73 16 127/68 99 07/23/16 17:11 98.3 F 93 16 125/73 100 - Laboratory Lab Statement: Any lab studies that have been ordered have been reviewed, and results considered in the medical decision making process. Lower Extremity Course/Dx - Course Course Of Treatment: PATIENT SENT TO XRAY. GIVEN 2 NORCO FOR PAIN RELIEF. NO DEFORMITY NOTED. SLIGHT BRUISING AND ABRASION JUST BELOW THE RIGHT KNEE. 2 NORCO SENT HOME FOR PAIN FROM PATIENT REQUEST. INDICATION: Right lower leg injury. TECHNIQUE: 2 views of the right lower leg were obtained. FINDINGS: The bones are normal alignment. No fracture is seen. IMPRESSION: NO EVIDENCE OF FRACTURE. PATIENT INFORMED OF RESULTS. PATIENT REQUESTED WRAPPING. JULIA WRAPPED AROUND AREA OF CONCERN AND DISCHARGED HOME. - Diagnoses Differential Diagnosis/HQI/PQRI: Positive: Bursitis, Contusion, Fracture (Closed ), Fracture (Open) Provider Diagnoses: Contusion Discharge - Discharge Plan Condition: Stable Disposition: HOME Patient Education Materials: Contusion in Adults (ED) Referrals: Cheng Terrazas MD [Primary Care Provider] - Additional Instructions: Ibuprofen 600mg three times daily with meals for pain. If numbness, tingling, decreased sensation, increased pain, temperature changes or pallor noted in toes, come back to ER immediately. Protect the area. For your comfort level, do not bear weight, pull or push until you can injury is somewhat healed. Rest the involved area, but not too long. You may need to be off your injury for some time to allow for healing, however excessive immobilization of joints can lead to stiffness and delay healing time. Early mobilization is encouraged if it is pain-free. Ice. Not directly on the skin. Cover with a towel. Apply ice no more than 30 minutes at a time Compression: You may use and keep an julia wrap bandage over the injury to decrease swelling. Again, this should be limited and be taken off periodically to encourage early range of motion and mobilization. Elevate: Try to elevate the injured area above the heart whenever possible. Images - Images Full Body (No Head): 1 - 2x2 BRUISING NOTED. NO OBVIOUS DEFORMITY SEEN
--- NOTE | 2016-07-23 19:13 | RAD ---
INDICATION: Right lower leg injury. TECHNIQUE: 2 views of the right lower leg were obtained. FINDINGS: The bones are normal alignment. No fracture is seen. IMPRESSION: NO EVIDENCE OF FRACTURE.
[2016-07-23 20:22] VITALS: BP 131/74
== END 2016-07-23 20:21 | disposition home or self-care (01) ==
LOC: ED 17:09
DX: S80.11XA Contusion of right lower leg, initial encounter (principal); R06.02 Shortness of breath; F17.210 Nicotine dependence, cigarettes, uncomplicated; W22.8XXA Striking against or struck by other objects, initial encounter; Y93.9 Activity, unspecified; Y92.9 Unspecified place or not applicable
CPT/HCPCS: 99282

== ENCOUNTER 2016-08-28 09:23 | Emergency (ER) | payer SELFPAY ==
[2016-08-28 10:09] VITALS: BP 125/81
--- NOTE | 2016-08-28 11:45 | UC ---
Abdominal Pain Male HPI - HPI Summary HPI Summary: ONSET OF N/V/D AT 2AM TODAY. HAS VOMITED MULTIPLE TIMES AND HAD 2 EPISODES OF WATERY DIARRHEA. APPETITE IS DOWN DUE TO NAUSEA. REPORTS 100.9 TEMP YESTERDAY. NO URI SX. - History of Current Complaint Chief Complaint: UCGI Stated Complaint: VOMITING Time Seen by Provider: 08/28/16 11:35 Hx Obtained From: Patient Onset/Duration: Sudden Onset, Lasting Hours, Still Present Timing: Constant Severity Initially: Moderate Severity Currently: Moderate Pain Intensity: 5 Pain Scale Used: 0-10 Numeric Location: Diffuse Radiates: No Character: Aching, Dull Aggravating Factor(s):: Food Alleviating Factor(s): Nothing Associated Signs And Symptoms: Positive: Fever, Decreased Appetite, Nausea, Vomiting, Diarrhea - Allergies/Home Medications Allergies/Adverse Reactions: Allergies Allergy/AdvReac Type Severity Reaction Status Date / Time Fluticasone [From Flonase] Allergy Intermediate vomiting Verified 08/28/16 09:40 blood Penicillins [PCN] Allergy Intermediate Vomiting Verified 08/28/16 09:40 Prednisone Allergy Intermediate vomit blood Verified 08/28/16 09:40 Ketorolac Tromethamine Allergy See Comment Verified 08/28/16 09:40 [From Toradol] Molds & Smuts Allergy Congestion Verified 07/15/16 21:12 Tetanus Toxoid Allergy Vomiting Verified 08/28/16 09:40 white vinegar Allergy Rash Uncoded 07/15/16 21:12 PMH/Surg Hx/FS Hx/Imm Hx Other History Of: Hepatitis C Negative For: Anticoagulant Therapy - Surgical History Surgical History: Yes Surgery Procedure, Year, and Place: 2012 orif right wrist/left jaw orif/orif left femur-knee cap - Family History Known Family History: Positive: Cardiac Disease, Hypertension, Diabetes, Other - thyroid disease - Social History Alcohol Use: None Substance Use Type: None Substance Use Comment - 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 Smoking Status (MU): Light Every Day Tobacco Smoker Type: Cigarettes Amount Used/How Often: 1/2 PPD Length of Time of Smoking/Using Tobacco: 14 years Have You Smoked in the Last Year: No - Immunization History Most Recent Influenza Vaccination: never Most Recent Tetanus Shot: no, allergic Review of Systems Constitutional: Fever Respiratory: Negative Cardiovascular: Negative Gastrointestinal: Abdominal Pain, Vomiting, Diarrhea, Other - NAUSEA All Other Systems Reviewed And Are Negative: Yes Physical Exam Triage Information Reviewed: Yes Appearance: Well-Appearing, No Pain Distress, Well-Nourished Vital Signs: Initial Vital Signs Temp 98.3 F 08/28/16 09:30 Pulse 95 08/28/16 09:30 Resp 20 08/28/16 09:30 BP 125/81 08/28/16 09:30 Pulse Ox 99 08/28/16 09:30 Vital Signs Reviewed: Yes Eyes: Positive: Conjunctiva Clear ENT: Positive: Hearing grossly normal, Pharynx normal, TMs normal Neck: Positive: Supple, Nontender, No Lymphadenopathy Respiratory Exam: Normal Cardiovascular Exam: Normal Abdomen Description: Positive: Soft, Other: - MILDLY TENDER DIFFUSELY. Negative : CVA Tenderness (R), CVA Tenderness (L), Distended, Guarding Bowel Sounds: Positive: Present Musculoskeletal: Positive: No Edema Neurological: Positive: Alert Psychological: Positive: Age Appropriate Behavior Skin: Negative: rashes Abd Pain Male Course/Dx - Differential Dx/Clinical Impression Provider Diagnoses: ACUTE GASTROENTERITIS Discharge - Discharge Plan Condition: Stable Disposition: HOME Prescriptions: Ondansetron ODT TAB* [Zofran Odt TAB*] 4 mg PO Q6H PRN #20 tab.odt PRN Reason: Nausea/Vomiting Promethazine TAB* [Phenergan Tab*] 25 mg PO Q8H PRN #12 tab PRN Reason: Nausea Patient Education Materials: Gastroenteritis (ED) Referrals: Cheng Terrazas MD [Primary Care Provider] - If Needed Additional Instructions: ENSURE ADEQUATE HYDRATION. CLEAR LIQUIDS, BLAND DIET. AVOID CAFFEINE, DAIRY, GREASY, SPICY FOODS. ONCE YOU ARE TOLERATING CLEAR LIQUIDS YOU CAN ADVANCE TO SIMPLE, BLAND FOODS.
== END 2016-08-28 12:07 | disposition home or self-care (01) ==
LOC: UCEAST 09:23
DX: K52.9 Noninfective gastroenteritis and colitis, unspecified (principal); Z72.0 Tobacco use
CPT/HCPCS: 99212; G0463

== ENCOUNTER 2016-09-07 19:37 | Emergency (ER) | payer SELFPAY ==
[2016-09-07] MEDS ORDERED: Cyclobenzaprine TAB* 10 MG PO ONE (21:02)
[2016-09-07] MEDS ORDERED: Acetaminophen TAB* 325 MG PO ONE (21:02)
[2016-09-07] MEDS ORDERED: DOXYcycline CAP(*) 100 MG PO ONE (21:19)
[2016-09-07 21:49] LABS: Hematocrit 42 % (42-52); Hemoglobin 13.7 g/dl (14.0-18.0); Mean Corpuscular HGB Conc 33 g/dl (31-36); Mean Corpuscular Hemoglobin 29 pg (27-31); Mean Corpuscular Volume 89 fL (80-94); Mean Platelet Volume 10 um3 (7.4-10.4); Red Blood Count 4.69 10^6/ul (4.0-5.4); Red Cell Distribution Width 14 % (10.5-15); White Blood Count 10.1 10^3/ul (3.5-10.8)
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
[2016-09-07 22:03] LABS: BUN/Creatinine Ratio 24.4 (8-20); C Reactive Protein 4.07 mg/L (< 5.00); Calcium 8.9 mg/dL (8.6-10.3); EGFR African American 131.2 (>60); Globulin 2.3 g/dL (2-4); Potassium 3.9 mmol/L (3.5-5.0); Total Bilirubin 0.5 mg/dL (0.2-1.0); Total Protein 6.3 g/dL (6.4-8.9)
[2016-09-07] MEDS ORDERED: Lidocaine PATCH 5%* 1 PATCH ONE (22:11)
[2016-09-07 22:16] VITALS: BP 122/78
[2016-09-07] MEDS ORDERED: Lidocaine PATCH 5%* 1 PATCH TRANSDERM SCH (23:00)
[2016-09-08] MEDS ORDERED: Lidocaine Patch REMOVE* 1 NOTE MISC SCH (21:00)
== END 2016-09-07 22:20 | disposition home or self-care (01) ==
LOC: ED 19:37
DX: M25.552 Pain in left hip (principal); F17.210 Nicotine dependence, cigarettes, uncomplicated
CPT/HCPCS: 36415; 80053; 83605; 85025; 86140; 99282; A9270-GY

== ENCOUNTER 2016-09-27 17:55 | Emergency (ER) | payer SELFPAY ==
[2016-09-27 19:41] VITALS: BP 108/57
[2016-09-27] MEDS ORDERED: Ibuprofen TAB* 800 MG PO ONE (23:23)
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
== END 2016-09-27 23:50 | disposition home or self-care (01) ==
LOC: ED 17:55
DX: N48.89 Other specified disorders of penis (principal); F17.210 Nicotine dependence, cigarettes, uncomplicated
CPT/HCPCS: 99281

== ENCOUNTER 2016-10-06 17:14 | Emergency (ER) | payer SELFPAY ==
--- NOTE | 2016-10-06 17:17 | UC ---
Bite Injury/Animal HPI - HPI Summary HPI Summary: 25 YEAR OLD MALE PRESENTS WITH COMPLAINS OF A BEE STING, CHEST PAIN AND SHORTNESS OF BREATH. I WILL SEND HIM TO THE ER. - History of Current Complaint Stated Complaint: WASP STING,NAUSEA,CHEST PAIN Time Seen by Provider: 10/06/16 17:16 - Allergies/Home Medications Allergies/Adverse Reactions: Allergies Allergy/AdvReac Type Severity Reaction Status Date / Time Fluticasone [From Flonase] Allergy Intermediate vomiting Verified 10/06/16 17:23 blood Penicillins [PCN] Allergy Intermediate Vomiting Verified 10/06/16 17:23 Prednisone Allergy Intermediate vomit blood Verified 10/06/16 17:23 Ketorolac Tromethamine Allergy See Comment Verified 10/06/16 17:23 [From Toradol] Molds & Smuts Allergy Congestion Verified 10/06/16 17:23 Tetanus Toxoid Allergy Vomiting Verified 10/06/16 17:23 white vinegar Allergy Rash Uncoded 10/06/16 17:23 Home Medications: Home Medications NK [No Home Medications Reported] 10/06/16 [History Confirmed 10/06/16] PMH/Surg Hx/FS Hx/Imm Hx Other History Of: Hepatitis C Negative For: Anticoagulant Therapy - Surgical History Surgical History: Yes Surgery Procedure, Year, and Place: 2012 orif right wrist/left jaw orif/orif left femur-knee cap - Family History Known Family History: Positive: Cardiac Disease, Hypertension, Diabetes, Other - thyroid disease - Social History Alcohol Use: None Substance Use Type: None, Other Substance Use Comment - 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 Smoking Status (MU): Current Every Day Smoker Type: Cigarettes Amount Used/How Often: 1/2 PPD Length of Time of Smoking/Using Tobacco: 14 years Have You Smoked in the Last Year: No Household Exposure Type: Cigarettes - Immunization History Most Recent Influenza Vaccination: never Most Recent Tetanus Shot: no, allergic Review of Systems Constitutional: Negative Skin: Rash, Other - WASP STING Eyes: Negative ENT: Negative Respiratory: Negative Cardiovascular: Negative Gastrointestinal: Negative Genitourinary: Negative Motor: Negative Neurovascular: Negative Musculoskeletal: Negative Neurological: Negative Psychological: Negative All Other Systems Reviewed And Are Negative: Yes Physical Exam Triage Information Reviewed: Yes Eye Exam: Normal ENT Exam: Normal Dental Exam: Normal Neck exam: Normal Neck: Positive: 1 Respiratory Exam: Normal Cardiovascular Exam: Normal Abdominal Exam: Normal Musculoskeletal Exam: Normal Neurological Exam: Normal Psychological Exam: Normal Skin: Positive: rashes, Other - WASP STING Bite Injury Course/Dx - Differential Dx/Diagnosis Provider Diagnoses: BEE STING Discharge - Discharge Plan Condition: Critical Disposition: [facility] Referrals: Cheng Terrazas MD [Primary Care Provider] -
[2016-10-06] MEDS ORDERED: diPHENhydraMINE IV* 50 MG/ML 1 ml VIAL (BENADRYL) IM ONE (17:18)
[2016-10-06] MEDS ORDERED: NS 0.9% 1000 ML* 1,000 ML IV ONE (17:20)
[2016-10-06] MEDS ORDERED: diPHENhydraMINE IV* 50 MG in NS 0.9% 50 ML* 50 ML IVPB ONE (17:24)
[2016-10-06] MEDS ORDERED: diPHENhydraMINE IV* 50 MG/ML 1 ml VIAL (BENADRYL) IV ONE (17:31)
[2016-10-06 17:41] VITALS: BP 124/77
== END 2016-10-06 17:38 | disposition short-term general hospital (02) ==
LOC: UCEAST 17:14
DX: T63.461A Toxic effect of venom of wasps, accidental (unintentional), initial encounter (principal); F17.210 Nicotine dependence, cigarettes, uncomplicated; Z88.0 Allergy status to penicillin; Z88.7 Allergy status to serum and vaccine; Z86.19 Personal history of other infectious and parasitic diseases
CPT/HCPCS: 96360; 96361; 96365; 99213; G0463; J1200

== ENCOUNTER 2016-10-06 17:55 | Emergency (ER) | payer SELFPAY ==
[2016-10-06] MEDS ORDERED: hydrOXYzine HCL TAB* 50 MG PO ONE (18:40)
[2016-10-06] MEDS ORDERED: Famotidine IV* 10 MG/ML 2 ML (20 mg) IV SLOW PU ONE (18:40)
[2016-10-06] MEDS ORDERED: traMADol TAB* 50 MG PO ONE (19:26)
[2016-10-06 20:31] VITALS: BP 110/60
--- NOTE | 2016-10-06 21:14 | ED ---
Trini Brewer Auryana, scribed for Mat Portillo MD on 10/06/16 at 1829 . Allergic Reaction/Systemic - HPI Summary HPI Summary: 25 year old male presents to the ED s/p allergic reaction to bee sting on the left arm. Patient reports that about 2 minutes s/p bee sting he started to feel nauseated, had chest tightness, and then left arm burning/tingling. He denies any rashes or any previous issues with bee stings. He denies any issues with swallowing. Patient was seen at today and referred to the ED for further evaluation of symptoms. He states that this reaction was very similar to his reaction to PCN. - History of Current Complaint Chief Complaint: EDAllergicReaction Time Seen by Provider: 10/06/16 18:23 Hx Obtained From: Patient Onset/Duration: Sudden Onset Timing: Constant Severity Initially: Mild Severity Currently: Moderate Pain Intensity: 6 Pain Scale Used: 0-10 Numeric Location: Discrete @ - left arm at site of bee string Character: Pain Associated Signs And Symptoms: Positive: Chest Pain - chest tightness, Nausea, Other: - left arm burning/tingling. Negative: Rash, Throat Tightening - Related Hx Possible Reaction To: Insect - BEE Prior Episode Dx as Allergic Reaction to: Same/Other: reports no history of allergic reactions to bees - Allergies/Home Medications Allergies/Adverse Reactions: Allergies Allergy/AdvReac Type Severity Reaction Status Date / Time Fluticasone [From Flonase] Allergy Intermediate vomiting Verified 10/06/16 17:23 blood Penicillins [PCN] Allergy Intermediate Vomiting Verified 10/06/16 17:23 Prednisone Allergy Intermediate vomit blood Verified 10/06/16 17:23 Ketorolac Tromethamine Allergy See Comment Verified 10/06/16 17:23 [From Toradol] Molds & Smuts Allergy Congestion Verified 10/06/16 17:23 Tetanus Toxoid Allergy Vomiting Verified 10/06/16 17:23 white vinegar Allergy Rash Uncoded 10/06/16 17:23 PMH/Surg Hx/FS Hx/Imm Hx Endocrine/Hematology History: Denies: Hx Anticoagulant Therapy, Hx Diabetes, Hx Thyroid Disease, Other Endocrine/Hematological Disorders Cardiovascular History: Reports: Hx Hypertension - PRE-HTN, Other Cardiovascular Problems/Disorders - FLUTTERS Denies: Hx Pacemaker/ICD Respiratory History: Reports: Hx Chronic Bronchitis, Hx Chronic Obstructive Pulmonary Disease (COPD) Denies: Hx Asthma, Other Respiratory Problems/Disorders GI History: Reports: Hx Gastroesophageal Reflux Disease, Hx Hiatal Hernia, Other GI Disorders - hiatal hernia Denies: Hx Ulcer History: Denies: Hx Dialysis, Hx Renal Disease, Other Problems/Disorders Musculoskeletal History: Reports: Hx Orthopedic Injury - Right wrist dislocation ; Fractured left forearm; Left Patella Fx; Fx Femur;, Other Musculoskeletal History - see above Sensory History: Denies: Other Sensory Impairments Opthamlomology History: Denies: Other Sensory Impairments Neurological History: Reports: Hx Migraine, Other Neuro Impairments/Disorders - BACK INJURY 2007- MUSCLES Denies: Hx Dementia, Hx Seizures Psychiatric History: Reports: Hx Anxiety, Hx Depression, Hx Bipolar Disorder, Hx Substance Abuse - synthetic drugs 1 yr ago Denies: Hx Eating Disorder, Hx of Violent Episodes Against Others, Other Psychiatric Issues/Disorders - Surgical History Surgery Procedure, Year, and Place: 2012 orif right wrist/left jaw orif/orif left femur-knee cap - Immunization History Date of Tetanus Vaccine: Up to date Date of Influenza Vaccine: None Infectious Disease History: No Infectious Disease History: Reports: Hx Hepatitis - hep c Denies: Hx Clostridium Difficile, Hx Human Immunodeficiency Virus (HIV), Hx of Known/Suspected MRSA - has had staph on his face, Hx Shingles, Hx Tuberculosis, Hx Known/Suspected VRE, Hx Known/Suspected VRSA, History Other Infectious Disease, Traveled Outside the [place] in Last 30 Days - Family History Known Family History: Positive: Cardiac Disease, Hypertension, Diabetes, Other - thyroid disease - Social History Alcohol Use: None Hx Substance Use: Yes Substance Use Type: Reports: None, Other Substance Use Comment - 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 Hx Tobacco Use: Yes Smoking Status (MU): Light Every Day Tobacco Smoker Type: Cigarettes Amount Used/How Often: 1/2 PPD Length of Time of Smoking/Using Tobacco: 14 years Have You Smoked in the Last Year: No Review of Systems Constitutional: Negative Eyes: Negative ENT: Negative Cardiovascular: Negative Respiratory: Negative Gastrointestinal: Negative Genitourinary: Negative Musculoskeletal: Negative Positive: Other - pain at site of bee sting . Negative: Rash Neurological: Negative Psychological: Normal All Other Systems Reviewed And Are Negative: Yes Physical Exam Triage Information Reviewed: Yes Vital Signs On Initial Exam: Initial Vitals Pulse Resp BP 61 16 111/59 10/06/16 18:17 10/06/16 18:17 10/06/16 18:17 Vital Signs Reviewed: Yes Appearance: Positive: Well-Appearing, No Pain Distress, Well-Nourished Skin: Positive: Warm, Skin Color Reflects Adequate Perfusion, Dry, Other - small puncture wound in the volar surface of the left arm Head/Face: Positive: Normal Head/Face Inspection Eyes: Positive: Normal ENT: Positive: Normal ENT inspection Neck: Positive: Supple, Nontender Respiratory/Lung Sounds: Positive: Clear to Auscultation, Breath Sounds Present Cardiovascular: Positive: RRR Abdomen Description: Positive: Nontender, Soft Bowel Sounds: Positive: Present Musculoskeletal: Positive: Normal Neurological: Positive: Normal Psychiatric: Positive: Normal, Affect/Mood Appropriate - [place] Coma Scale Coma Scale Total: 15 Diagnostics - Vital Signs Vital Signs Temp Pulse Resp BP Pulse Ox 10/06/16 18:21 98.4 F 61 16 111/59 98 10/06/16 18:17 61 16 111/59 - Laboratory Lab Statement: Any lab studies that have been ordered have been reviewed, and results considered in the medical decision making process. Allergic Reaction Course/Dx - Course Course Of Treatment: Mr. Magnus Armstrong was stung by a bee and within 2 minutes felt pain in his arm, nausea and tightness in his chest. Benadryl given at [facility] has made him sleepy. He remained stable here and his biggest C/O was pain in the left arm where he was stung. I don't think he had an allergic reaction and am not prescribing an epipen. - Diagnoses Provider Diagnoses: Hymenoptera reaction Discharge - Discharge Plan Condition: Stable Disposition: HOME Patient Education Materials: Insect Bite or Sting (ED) Referrals: Cheng Terrazas MD [Primary Care Provider] - 2 Days The documentation as recorded by the Trini cox Auryana accurately reflects the service I personally performed and the decisions made by me, Mat Portillo MD.
== END 2016-10-06 20:31 | disposition home or self-care (01) ==
LOC: ED 17:55
DX: T63.441A Toxic effect of venom of bees, accidental (unintentional), initial encounter (principal); R07.9 Chest pain, unspecified; R11.0 Nausea; Y92.89 Other specified places as the place of occurrence of the external cause
CPT/HCPCS: 96360; 99283; A9270-GY

== ENCOUNTER 2016-10-28 20:06 | Emergency (ER) | payer SELFPAY ==
[2016-10-28 20:12] VITALS: BP 137/82
--- NOTE | 2016-10-28 21:44 | ED ---
Upper Extremity Pain - HPI Summary HPI Summary: 25M presents with left shoulder pain for a month that got worst today. He states that he has been lifting heavy object and that is it make his left shoulder worst. He states that shoulder got caught behind him today. He has history of rotator cuff tear on other shoulder which is dominant hand and is concerned for same thing. He denies any numbness or tingling. He denies any specific injury. He has been taking ibuprofen for his pain without relief. He states his pain is traveling up his neck and causing stiffness on the left side of his neck. The pain is also triggering migraines. - History of Current Complaint Chief Complaint: Cristianj Stated Complaint: SHOULDER/NECK PAIN Time Seen by Provider: 10/28/16 21:24 - Allergies/Home Medications Allergies/Adverse Reactions: Allergies Allergy/AdvReac Type Severity Reaction Status Date / Time Fluticasone [From Flonase] Allergy Intermediate vomiting Verified 10/06/16 17:23 blood Penicillins [PCN] Allergy Intermediate Vomiting Verified 10/06/16 17:23 Prednisone Allergy Intermediate vomit blood Verified 10/06/16 17:23 Ketorolac Tromethamine Allergy See Comment Verified 10/06/16 17:23 [From Toradol] Molds & Smuts Allergy Congestion Verified 10/06/16 17:23 Tetanus Toxoid Allergy Vomiting Verified 10/06/16 17:23 white vinegar Allergy Rash Uncoded 10/06/16 17:23 PMH/Surg Hx/FS Hx/Imm Hx Endocrine/Hematology History: Denies: Hx Anticoagulant Therapy, Hx Diabetes, Hx Thyroid Disease, Other Endocrine/Hematological Disorders Cardiovascular History: Reports: Hx Hypertension - PRE-HTN, Other Cardiovascular Problems/Disorders - FLUTTERS Denies: Hx Pacemaker/ICD Respiratory History: Reports: Hx Chronic Bronchitis, Hx Chronic Obstructive Pulmonary Disease (COPD) Denies: Hx Asthma, Other Respiratory Problems/Disorders GI History: Reports: Hx Gastroesophageal Reflux Disease, Hx Hiatal Hernia, Other GI Disorders - hiatal hernia Denies: Hx Ulcer History: Denies: Hx Dialysis, Hx Renal Disease, Other Problems/Disorders Musculoskeletal History: Reports: Hx Orthopedic Injury - Right wrist dislocation ; Fractured left forearm; Left Patella Fx; Fx Femur;, Other Musculoskeletal History - see above Sensory History: Denies: Other Sensory Impairments Opthamlomology History: Denies: Other Sensory Impairments Neurological History: Reports: Hx Migraine, Other Neuro Impairments/Disorders - BACK INJURY 2007- MUSCLES Denies: Hx Dementia, Hx Seizures Psychiatric History: Reports: Hx Anxiety, Hx Depression, Hx Bipolar Disorder, Hx Substance Abuse - synthetic drugs 1 yr ago Denies: Hx Eating Disorder, Hx of Violent Episodes Against Others, Other Psychiatric Issues/Disorders - Surgical History Surgery Procedure, Year, and Place: 2012 orif right wrist/left jaw orif/orif left femur-knee cap - Immunization History Date of Tetanus Vaccine: Up to date Date of Influenza Vaccine: None Infectious Disease History: No Infectious Disease History: Reports: Hx Hepatitis - hep c Denies: Hx Clostridium Difficile, Hx Human Immunodeficiency Virus (HIV), Hx of Known/Suspected MRSA - has had staph on his face, Hx Shingles, Hx Tuberculosis, Hx Known/Suspected VRE, Hx Known/Suspected VRSA, History Other Infectious Disease, Traveled Outside the in Last 30 Days - Family History Known Family History: Positive: Cardiac Disease, Hypertension, Diabetes, Other - thyroid disease - Social History Alcohol Use: None Hx Substance Use: Yes Substance Use Type: Reports: None, Other Substance Use Comment - 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 Hx Tobacco Use: Yes Smoking Status (MU): Light Every Day Tobacco Smoker Type: Cigarettes Amount Used/How Often: 1/2 PPD Length of Time of Smoking/Using Tobacco: 14 years Have You Smoked in the Last Year: No Review of Systems Negative: Fever Negative: Chest Pain Negative: Shortness Of Breath Positive: Myalgia - left shoulder pain All Other Systems Reviewed And Are Negative: Yes Physical Exam Triage Information Reviewed: Yes Vital Signs On Initial Exam: Initial Vitals Temp Pulse Resp BP Pulse Ox 98.0 F 74 16 137/82 100 10/28/16 20:10 10/28/16 20:10 10/28/16 20:10 10/28/16 20:10 10/28/16 20:10 Vital Signs Reviewed: Yes Appearance: Positive: Well-Appearing Skin: Positive: Warm, Skin Color Reflects Adequate Perfusion, Dry Head/Face: Positive: Normal Head/Face Inspection Eyes: Positive: Normal, Conjunctiva Clear Respiratory/Lung Sounds: Positive: Clear to Auscultation, Breath Sounds Present Cardiovascular: Positive: Normal, RRR Musculoskeletal: Positive: Limited @ - shoulder left due to pain, Other - good pulses, capillary refill< 2 secs, tenderness across left shoulder, neg drop arm. pos yearsons and flores. tender on lateral aspect of left side of neck with palpable muscle spasms Neurological: Positive: Reflexes Intact - biceps Diagnostics - Vital Signs Vital Signs Temp Pulse Resp BP Pulse Ox 10/28/16 20:10 98.0 F 74 16 137/82 100 - Laboratory Lab Statement: Any lab studies that have been ordered have been reviewed, and results considered in the medical decision making process. - Radiology shoulder Xray Interpretation: No Acute Changes Radiology Interpretation Completed By: ED Physician Course/Dx - Course Course Of Treatment: 25M presents with left shoulder pain for a month that got worst today. He states that he has been lifting heavy object and that is it make his left shoulder worst. He states that shoulder got caught behind him today. He has history of rotator cuff tear on other shoulder which is dominant hand and is concerned for same thing. He denies any numbness or tingling. He denies any specific injury. He has been taking ibuprofen for his pain without relief. He states his pain is traveling up his neck and causing stiffness on the left side of his neck. The pain is also triggering migraines. tender over left shoulder. neurovascular intact. pos yearsons and flores, neg drop arm. xray shoulder normal. will treat with prednisone for neck stiffness. told to follow up with ortho for potential rotator cuff injury. patient understands and agrees with plan. - Diagnoses Differential Diagnosis/HQI/PQRI: Positive: Fracture (Closed), Strain, Sprain Provider Diagnoses: Left shoulder pain Discharge - Discharge Plan Condition: Good Disposition: HOME Prescriptions: Methocarbamol TAB* [Robaxin 500 MG TAB*] 500 mg PO TID PRN #9 tab PRN Reason: Pain Patient Education Materials: Shoulder Pain (ED) Referrals: Cheng Terrazas MD [Primary Care Provider] - Josh Miles MD [Medical Doctor] - Additional Instructions: Take muscle relaxer three times a day for 3 days Take Tylenol and ibuprofen every 6 hours as needed for pain Ice/heat Follow up with ortho if no improvement Return to ED if develop any new or worsening symptoms
[2016-10-28] MEDS ORDERED: Ibuprofen TAB* 800 MG PO ONE (22:01)
[2016-10-28] MEDS ORDERED: oxyCODONE/Acetamin 5/325 MG* TAB PO ONE (22:02)
--- NOTE | 2016-10-29 07:39 | RAD ---
INDICATION: Left shoulder pain. TECHNIQUE: 4 views of the left shoulder were obtained. FINDINGS: The bones are in normal alignment. No fracture is seen. There is minimal spurring present along the inferior aspect of the glenoid process of the scapula. Joint spaces appear maintained. IMPRESSION: NO EVIDENCE OF FRACTURE.
== END 2016-10-28 22:56 | disposition home or self-care (01) ==
LOC: ED 20:06
DX: M25.512 Pain in left shoulder (principal); K21.9 Gastro-esophageal reflux disease without esophagitis; F31.9 Bipolar disorder, unspecified; X50.0XXA Overexertion from strenuous movement or load, initial encounter; Y92.9 Unspecified place or not applicable; Z88.0 Allergy status to penicillin; J44.9 Chronic obstructive pulmonary disease, unspecified; F17.210 Nicotine dependence, cigarettes, uncomplicated
CPT/HCPCS: 99282; A9270-GY

== ENCOUNTER 2016-11-06 15:51 | Emergency (ER) | payer SELFPAY ==
[2016-11-06] MEDS ORDERED: Ondansetron ODT TAB* 4 MG PO ONE (16:20)
[2016-11-06] MEDS ORDERED: Meclizine TAB* 12.5 MG PO ONE (16:21)
[2016-11-06 16:45] VITALS: BP 138/82
--- NOTE | 2016-11-06 22:17 | UC ---
Harini Brewer Edward, scribed for Jose Alberto Bañuelos MD on 11/06/16 at 1607 . Dizzy HPI HPI Summary: 25 y/o male presents to [facility] c/o sudden onset dizziness today after standing up today at work. Pt was shaky throughout the morning. The dizziness is induced when the patient stands up after sitting. Pt's legs buckled earlier. Associated sx: slight CORBIN, N/V, unsteadiness, lightheadedness, weakness. No tinnitus, hearing deficiency, change in vision, slurred speech. FHx thyroid disease. Past medications reviewed on visit. Smoker. No EtOH use. - History Of Current Complaint Stated Complaint: DIZZY,NAUSEA,VOMITING,WEAKNESS Time Seen by Provider: 11/06/16 15:58 Hx Obtained From: Patient Onset/Duration: Sudden Onset, Lasting Hours - This morning, Resolved Character: Lightheaded, Weak, Dizzy Associated Signs And Symptoms: Positive: Nausea, Vomiting, Unsteady Gait. Negative: Tinnitus - Allergies/Home Medications Allergies/Adverse Reactions: Allergies Allergy/AdvReac Type Severity Reaction Status Date / Time Fluticasone [From Flonase] Allergy Intermediate vomiting Verified 11/06/16 15:59 blood Penicillins [PCN] Allergy Intermediate Vomiting Verified 11/06/16 15:59 Prednisone Allergy Intermediate vomit blood Verified 11/06/16 15:59 Ketorolac Tromethamine Allergy See Comment Verified 11/06/16 15:59 [From Toradol] Molds & Smuts Allergy Congestion Verified 11/06/16 15:59 Tetanus Toxoid Allergy Vomiting Verified 11/06/16 15:59 white vinegar Allergy Rash Uncoded 11/06/16 15:59 Home Medications: Home Medications Albuterol HFA INHALER* [Ventolin HFA Inhaler*] 1 puff INH Q4H PRN 11/06/16 [ History Confirmed 11/06/16] PMH/Surg Hx/FS Hx/Imm Hx Previously Healthy: No Other History Of: Hepatitis C Negative For: Anticoagulant Therapy - Surgical History Surgical History: Yes Surgery Procedure, Year, and Place: 2012 orif right wrist/left jaw orif/orif left femur-knee cap - Family History Known Family History: Positive: Cardiac Disease, Hypertension, Diabetes, Other - thyroid disease - Social History Alcohol Use: None Substance Use Type: None, Other Substance Use Comment - 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 Smoking Status (MU): Light Every Day Tobacco Smoker Type: Cigarettes Amount Used/How Often: 1/2 PPD Length of Time of Smoking/Using Tobacco: 14 years Have You Smoked in the Last Year: No Household Exposure Type: Cigarettes - Immunization History Most Recent Influenza Vaccination: never Most Recent Tetanus Shot: no, allergic Review of Systems Constitutional: Negative Skin: Negative Eyes: Negative ENT: Negative - No tinnitus, hearing deficiency Respiratory: Negative Cardiovascular: Negative Gastrointestinal: Vomiting, Nausea Genitourinary: Negative Motor: Negative Neurovascular: Negative Musculoskeletal: Other: - Legs buckled once earlier today Neurological: Headache, Weakness, Other - Dizziness and lightheadedness Psychological: Negative All Other Systems Reviewed And Are Negative: Yes Physical Exam Triage Information Reviewed: Yes Vital Signs: Initial Vital Signs Temp 99.6 F 11/06/16 16:01 Pulse 94 11/06/16 16:01 Resp 18 11/06/16 16:01 BP 138/82 11/06/16 16:01 Pulse Ox 98 11/06/16 16:01 Vital Signs Reviewed: Yes - Additional Comments The patient is well-nourished in no acute distress and in no acute pain. The skin is warm and dry and skin color reflects adequate perfusion. HEENT: The head is normocephalic and atraumatic. The pupils are equal and reactive. The conjunctivae are clear and without drainage. Nares are patent and without drainage. Mouth reveals moist mucous membranes and the throat is without erythema and exudate. The external ears are intact. The ear canals are patent and without drainage. The tympanic membranes are intact. There is horizontal nystagmyus. PERRL. The extraocular muscles intact. Neck is supple with full range of motion and non-tender. There are no carotid bruits. There is no neck vein distension. Respiratory: Chest is non-tender. Lungs are clear to auscultation and breath sounds are symmetrical and equal. Cardiovascular: Hear is regular rate and rhythm. There is no murmur or rub auscultated. There is no peripheral edema and pulses are symmetrical and equal. Abdomen: The abdomen is soft and non-tender. There are normal bowel sounds heard in all four quadrants and there is no organomegaly palpated. Musculoskeletal: There is no back pain noted. Extremities are non-tender with full range of motion. There is good capillary refill. There is no peripheral edema or calf tenderness elicited. Symmetrical motor strength in the extremities. Neurological: Patient is alert and oriented to person, place and time. The patient has symmetrical motor strength in all four extremities. Cranial nerves are grossly intact. Deep tendon reflexes are symmetrical and equal in all four extremities. Psychiatric: The patient has an appropriate affect and does not exhibit any anxiety or depression. The patient's symptoms are worsened when he sits up. Diagnostics - EKG Cardiac Rate: NL Cardiac Rhythm: Sinus: Normal - 15:53 - 89 bpm. Occasional PACs Re-Evaluation - Re-Evaluation 1 Re-Evaluation Time: 17:05 Change: Improved Dizzy Course/Dx - Course Course Of Treatment: 25 y/o male presents to [facility] c/o sudden onset dizziness today after standing up today at work. Pt was shaky throughout the morning. The dizziness is induced when the patient stands up after sitting. Pt's legs buckled earlier. Associated sx: slight CORBIN, N/V, unsteadiness, lightheadedness, weakness. No tinnitus, hearing deficiency, change in vision, slurred speech. FHx thyroid disease. Past medications reviewed on visit. Smoker. No EtOH use. EKG @ 15:53 shows Sinus Rhythm @ 89 bpm with occasional PACs. Pt was given Zofran in ED course. On re-eval the pt feels better. Pt will be d/c home with Meclizine. - Differential Dx/Diagnosis Differential Diagnosis/HQI/PQRI: Hypovolemia, Labyrinthitis, Metabolic Abnormality Provider Diagnoses: Vertigo Discharge - Discharge Plan Condition: Stable Disposition: HOME Prescriptions: Meclizine TAB* [Antivert 12.5 TAB*] 25 mg PO QID #30 tab Patient Education Materials: Vertigo (ED) Forms: *Work Release Referrals: Cheng Terrazas MD [Primary Care Provider] - 3 Days (Please f/u in 2-3 days) The documentation as recorded by the Harini cox Edward accurately reflects the service I personally performed and the decisions made by me, Jose Alberto Bañuelos MD.
== END 2016-11-06 17:18 | disposition home or self-care (01) ==
LOC: UCEAST 15:51
DX: R42 Dizziness and giddiness (principal); F17.210 Nicotine dependence, cigarettes, uncomplicated; Z88.0 Allergy status to penicillin
CPT/HCPCS: 93005; 99202; A9270-GY; G0463

== ENCOUNTER 2017-01-01 09:53 | Emergency (ER) | payer SELFPAY ==
[2017-01-01 10:21] VITALS: BP 135/82
--- NOTE | 2017-01-01 11:10 | RAD ---
HISTORY: Cough, fever COMPARISONS: July 05, 2015 VIEWS: 4: Frontal dual-energy and lateral views of the chest. FINDINGS: CARDIOMEDIASTINAL SILHOUETTE: The cardiomediastinal silhouette is normal. PATRICIA: The patricia are normal. PLEURA: The costophrenic angles are sharp. No pleural abnormalities are noted. LUNG PARENCHYMA: The lungs are clear. ABDOMEN: The upper abdomen is clear. There is no subphrenic gas. BONES AND SOFT TISSUES: No bone or soft tissue abnormalities are noted. OTHER: None. IMPRESSION: NO ACTIVE CARDIOPULMONARY DISEASE.
--- NOTE | 2017-01-01 11:27 | UC ---
Respiratory Complaint HPI - HPI Summary HPI Summary: 26M presents with cough for two weeks. He states the cough has been getting worst. he has a history of COPD but does not take anything. does smoke. admits to sinus congestion, sore throat, migraines. daughter has pneumonia. cough is more productive states when cough gets short of breath. tried cold and sinus without relief. - History of Current Complaint Chief Complaint: UCRespiratory Stated Complaint: CONGESTION COUGH Time Seen by Provider: 01/01/17 10:46 - Allergies/Home Medications Allergies/Adverse Reactions: Allergies Allergy/AdvReac Type Severity Reaction Status Date / Time Fluticasone [From Flonase] Allergy Intermediate vomiting Verified 01/01/17 10:22 blood Penicillins [PCN] Allergy Intermediate Vomiting Verified 01/01/17 10:22 Prednisone Allergy Intermediate vomit blood Verified 01/01/17 10:22 Ketorolac Tromethamine Allergy See Comment Verified 01/01/17 10:22 [From Toradol] Molds & Smuts Allergy Congestion Verified 01/01/17 10:22 Tetanus Toxoid Allergy Vomiting Verified 01/01/17 10:22 white vinegar Allergy Rash Uncoded 01/01/17 10:22 Home Medications: Home Medications Meclizine TAB* [Antivert 12.5 TAB*] 25 mg PO QID PRN 01/01/17 [History Confirmed 01/01/17] PMH/Surg Hx/FS Hx/Imm Hx Endocrine History: Other Other Endocrine History: no DM Respiratory History: COPD Other History Of: Hepatitis C Negative For: Anticoagulant Therapy - Surgical History Surgical History: Yes Surgery Procedure, Year, and Place: 2012 orif right wrist/left jaw orif/orif left femur-knee cap - Family History Known Family History: Positive: Cardiac Disease, Hypertension, Diabetes, Other - thyroid disease - Social History Alcohol Use: None Substance Use Type: None, Other Substance Use Comment - 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 Smoking Status (MU): Light Every Day Tobacco Smoker Type: Cigarettes Amount Used/How Often: 1/2 PPD Length of Time of Smoking/Using Tobacco: 14 years Have You Smoked in the Last Year: No Household Exposure Type: Cigarettes - Immunization History Most Recent Influenza Vaccination: never Most Recent Tetanus Shot: no, allergic Review of Systems Constitutional: Negative ENT: Sore Throat, Sinus Pain/Tenderness Respiratory: Shortness Of Breath, Cough All Other Systems Reviewed And Are Negative: Yes Physical Exam Triage Information Reviewed: Yes Appearance: Well-Appearing Vital Signs: Initial Vital Signs Temp 98.4 F 01/01/17 10:14 Pulse 81 01/01/17 10:14 Resp 16 01/01/17 10:14 BP 135/82 01/01/17 10:14 Pulse Ox 99 01/01/17 10:14 Vital Signs Reviewed: Yes Eyes: Positive: Conjunctiva Clear ENT: Positive: Pharynx normal, Nasal drainage, TMs normal Neck: Positive: Supple, Nontender, No Lymphadenopathy Respiratory: Positive: Lungs clear, Normal breath sounds Cardiovascular: Positive: RRR Abdomen Description: Positive: Nontender, Soft Bowel Sounds: Positive: Present Musculoskeletal Exam: Normal Neurological Exam: Normal Psychological Exam: Normal Skin Exam: Normal UC Diagnostic Evaluation - Laboratory O2 Sat by Pulse Oximetry: 99 - Radiology Xray Interpretation: No Acute Changes Radiology Interpretation Completed By: Radiologist Respiratory Course/Dx - Course Course Of Treatment: 26M presents with cough for two weeks. He states the cough has been getting worst. he has a history of COPD but does not take anything. does smoke. admits to sinus congestion, sore throat, migraines. daughter has pneumonia. cough is more productive states when cough gets short of breath. lungs CTA. xray normal. do to history of COPD will treat with inhaler and zpack. medications reviewed will have follow up with primary about blood pressure. patient understands and agrees with plan. - Differential Dx/Diagnosis Differential Diagnosis/HQI/PQRI: Bronchitis, Exacerbation Of COPD, Lower Resp Infection Provider Diagnoses: bronchitis, COPD Discharge - Discharge Plan Condition: Good Disposition: HOME Prescriptions: Albuterol inh POWDER (NF) [Proair Respiclick] 108 mcg IN Q6HR PRN #1 aer PRN Reason: Shortness Of Breath Azithromycin TAB* [Zithromax TAB (Z-MONICO) 250 mg #6 tabs] 2 tab PO .TODAY, THEN 1 DAILY #1 monico Patient Education Materials: Acute Bronchitis (ED) Forms: *Work Release Referrals: Cheng Terrazas MD [Primary Care Provider] - Additional Instructions: Use inhaler up to two puffs every 4 hours for cough and wheezing Take antibiotic two tablets first day, one tablet for four more days Take Tylenol or ibuprofen for pain every 6 hours Return to ED if develop severe shortness of breath, worsening chest pain, or any new or worsening symptomss
== END 2017-01-01 11:40 | disposition home or self-care (01) ==
LOC: UCEAST 09:53
DX: J44.9 Chronic obstructive pulmonary disease, unspecified (principal); Z87.891 Personal history of nicotine dependence; B19.20 Unspecified viral hepatitis C without hepatic coma; Z88.0 Allergy status to penicillin; Z88.8 Allergy status to other drugs, medicaments and biological substances
CPT/HCPCS: 71020; 99212; G0463

== ENCOUNTER 2017-02-24 15:42 | Emergency (ER) | payer SELFPAY ==
[2017-02-24 16:13] VITALS: BP 130/70
--- NOTE | 2017-02-24 16:29 | RAD ---
INDICATION: Cough COMPARISON: January 01, 2017 TECHNIQUE: PA and lateral dual-energy views were obtained. FINDINGS: Bones/Soft Tissues: There are no acute bony findings. Cardiomediastinal: The cardiomediastinal silhouette is normal. Lungs: There are no infiltrates. Pleura: There are no pleural effusions. Other: None IMPRESSION: NO ACTIVE DISEASE.
--- NOTE | 2017-02-24 16:44 | UC ---
Respiratory Complaint HPI - HPI Summary HPI Summary: 26M presents with cough, sinus congestion and migraine for a week. He states he has been working a lot of shifts. He also drank a lot of energy drinks. He states he has COPD. He states that has been having chest tightness but is not taking his inhaler. He admits to SOB. He states the illness has triggered his migraine. His illness started with generalized abdominal pain and n/v/d that resolved. only nausea remains. He denies any fever. He denies any neck stiffness or photophobia. He denies any swelling in legs. He denies any recent travel or history of blood clots. <Adrienne Donald - Last Filed: 02/24/17 17:32> <Guillermina Ibrahim - Last Filed: 02/24/17 17:58> - History of Current Complaint Chief Complaint: UCRespiratory Stated Complaint: URI, NAUSEA Time Seen by Provider: 02/24/17 16:31 - Allergies/Home Medications Allergies/Adverse Reactions: Allergies Allergy/AdvReac Type Severity Reaction Status Date / Time Fluticasone [From Flonase] Allergy Intermediate vomiting Verified 02/24/17 16:14 blood Penicillins [PCN] Allergy Intermediate Vomiting Verified 02/24/17 16:14 Prednisone Allergy Intermediate vomit blood Verified 02/24/17 16:14 Ketorolac Tromethamine Allergy See Comment Verified 02/24/17 16:14 [From Toradol] Molds & Smuts Allergy Congestion Verified 02/24/17 16:14 Tetanus Toxoid Allergy Vomiting Verified 02/24/17 16:14 white vinegar Allergy Rash Uncoded 02/24/17 16:14 Home Medications: Home Medications Ibuprofen [Advil] 400 mg PO 02/24/17 [History] PMH/Surg Hx/FS Hx/Imm Hx Endocrine History: Other Other Endocrine History: no DM Respiratory History: COPD Other History Of: Hepatitis C Negative For: Anticoagulant Therapy - Surgical History Surgical History: Yes Surgery Procedure, Year, and Place: 2012 orif right wrist/left jaw orif/orif left femur-knee cap - Family History Known Family History: Positive: Cardiac Disease, Hypertension, Diabetes, Other - thyroid disease - Social History Alcohol Use: None Substance Use Type: Heroin, Marijuana, 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 Smoking Status (MU): Heavy Every Day Tobacco Smoker Type: Cigarettes, eCigarettes Amount Used/How Often: 1/2 PPD Length of Time of Smoking/Using Tobacco: 14 years Have You Smoked in the Last Year: No Household Exposure Type: Cigarettes - Immunization History Most Recent Influenza Vaccination: never Most Recent Tetanus Shot: no, allergic <Adrienne Donald - Last Filed: 02/24/17 17:32> Review of Systems Constitutional: Negative Respiratory: Shortness Of Breath, Cough Cardiovascular: Chest Pain - chest tightedeness All Other Systems Reviewed And Are Negative: Yes <Adrienne Donald - Last Filed: 02/24/17 17:32> Physical Exam Triage Information Reviewed: Yes Appearance: Well-Appearing Vital Signs: Initial Vital Signs Temp 99.2 F 02/24/17 16:09 Pulse 84 02/24/17 16:09 Resp 18 02/24/17 16:09 BP 130/70 02/24/17 16:09 Pulse Ox 99 02/24/17 16:09 Vital Signs Reviewed: Yes Eyes: Positive: Conjunctiva Clear ENT: Positive: Normal ENT inspection, Pharynx normal, TMs normal Neck: Positive: Supple, Nontender, No Lymphadenopathy Respiratory: Positive: Lungs clear, Normal breath sounds Cardiovascular: Positive: RRR Abdomen Description: Positive: Nontender, Soft Bowel Sounds: Positive: Present Musculoskeletal Exam: Normal Neurological Exam: Normal Psychological Exam: Normal Skin Exam: Normal <Adrienne Donald - Last Filed: 02/24/17 17:32> Vital Signs: Initial Vital Signs Temp 99.2 F 02/24/17 16:09 Pulse 84 02/24/17 16:09 Resp 18 02/24/17 16:09 BP 130/70 02/24/17 16:09 Pulse Ox 99 02/24/17 16:09 <Guillermina Ibrahim - Last Filed: 02/24/17 17:58> UC Diagnostic Evaluation - Laboratory O2 Sat by Pulse Oximetry: 99 - Radiology Xray Interpretation: No Acute Changes Radiology Interpretation Completed By: Radiologist <Adrienne Donald - Last Filed: 02/24/17 17:32> Respiratory Course/Dx - Course Course Of Treatment: 26M presents with cough, sinus congestion and migraine for a week. He states he has been working a lot of shifts. He also drank a lot of energy drinks. He states he has COPD. He states that has been having chest tightness but is not taking his inhaler. He admits to SOB. He states the illness has triggered his migraine. His illness started with generalized abdominal pain and n/v/d that resolved. only nausea remains. He denies any fever. He denies any neck stiffness or photophobia. He denies any swelling in legs. on exam lungs CTA. chest xray normal. strept and flu neg. will treat with zpack due to copd, compazine. told to take compazine and benadryl with ibuprofen for migraine. medication reviewed, blood pressure pre-htn will have follow up with primary about. patient understand and agrees with plan. - Differential Dx/Diagnosis Differential Diagnosis/HQI/PQRI: Bronchitis, Influenza, Lower Resp Infection Provider Diagnoses: upper resp infection, COPD, migraine <Adrinene Donald - Last Filed: 02/24/17 17:32> Discharge <Adrienne Donald - Last Filed: 02/24/17 17:32> <Guillermina Ibrahim - Last Filed: 02/24/17 17:58> - Discharge Plan Condition: Good Disposition: HOME Prescriptions: Albuterol HFA INHALER* [Ventolin HFA Inhaler*] 1 puff INH Q4H PRN #1 mdi PRN Reason: Sob/Wheezing Azithromycin TAB* [Zithromax TAB (Z-MONICO) 250 mg #6 tabs] 2 tab PO .TODAY, THEN 1 DAILY #1 monico Prochlorperazine TAB* [Compazine Tab*] 5 mg PO Q6H PRN #16 tab PRN Reason: Nausea Patient Education Materials: Acute Bronchitis (ED) Referrals: Cheng Terrazas MD [Primary Care Provider] - Additional Instructions: Take antibiotic two tablets first day, once a day for 4 more days Use inhaler one puff every 4 hours for cough as needed Take compazine every 6 hours as needed for nausea take 50mg benadryl, 1 compazine and ibuprofen for migraine when get home Use humidifier or place warm bowls of water around the room Take Tylenol and ibuprofen for pain/fever every 6 hours Increase fluid intake and eat small amounts of food as tolerated Follow up with primary within 5 days Return to ED if develop any new or worsening symptoms Attestation Statement User Type: Provider - I was available for consult. This patient was seen by the JOSE. The patient was not presented to, seen by, or examined by me. -Jyoti <Guillermina Ibrahim - Last Filed: 02/24/17 17:58>
[2017-02-24] MEDS ORDERED: Butalb/Acetamin/Caff TAB* 1 TAB PO ONE (17:01)
== END 2017-02-24 17:16 | disposition home or self-care (01) ==
LOC: UCEAST 15:42
DX: J06.9 Acute upper respiratory infection, unspecified (principal); F17.290 Nicotine dependence, other tobacco product, uncomplicated; J44.9 Chronic obstructive pulmonary disease, unspecified; G43.909 Migraine, unspecified, not intractable, without status migrainosus
CPT/HCPCS: 71020; 87502; 87651; 99212; A9270-GY; G0463

== ENCOUNTER 2017-04-12 12:55 | Emergency (ER) | payer SELFPAY ==
[2017-04-12 13:03] VITALS: BP 147/81
[2017-04-12] MEDS ORDERED: HYDROcodone/ACETAMIN 5-325 MG* 1 TAB PO ONE (13:18)
--- NOTE | 2017-04-12 13:19 | UC ---
Knee Pain HPI - HPI Summary HPI Summary: Sudden onset of pain in left knee no know injury is concerned about hardware failure --- - History of Current Complaint Chief Complaint: UCLowerExtremity Stated Complaint: KNEE PAIN Time Seen by Provider: 04/12/17 13:01 Hx Obtained From: Patient Onset/Duration: Sudden Onset, Lasting Days - 2, Still Present Severity Initially: Severe Severity Currently: Severe Pain Intensity: 10 Character: Throbbing Aggravating Factor(s): Movement, Weight Bearing Alleviating Factor(s): Nothing Associated Signs And Symptoms: Positive: Negative Able to Bear Weight: Yes - walking with a limp - Allergies/Home Medications Allergies/Adverse Reactions: Allergies Allergy/AdvReac Type Severity Reaction Status Date / Time Fluticasone [From Flonase] Allergy Intermediate vomiting Verified 04/12/17 13:00 blood Penicillins [PCN] Allergy Intermediate Vomiting Verified 04/12/17 13:00 Prednisone Allergy Intermediate vomit blood Verified 04/12/17 13:00 Ketorolac Tromethamine Allergy See Comment Verified 04/12/17 13:00 [From Toradol] Molds & Smuts Allergy Congestion Verified 04/12/17 13:00 Tetanus Toxoid Allergy Vomiting Verified 04/12/17 13:00 white vinegar Allergy Rash Uncoded 04/12/17 13:00 PMH/Surg Hx/FS Hx/Imm Hx Previously Healthy: No Other History Of: Hepatitis C Negative For: Anticoagulant Therapy - Surgical History Surgical History: Yes Surgery Procedure, Year, and Place: 2012 orif right wrist/left jaw orif/orif left femur-knee cap - Family History Known Family History: Positive: Cardiac Disease, Hypertension, Diabetes, Other - thyroid disease - Social History Occupation: Employed Full-time Lives: With Family Alcohol Use: None Substance Use Type: Heroin, Marijuana, Other - prescription opiates 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 Smoking Status (MU): Heavy Every Day Tobacco Smoker Type: Cigarettes, eCigarettes Amount Used/How Often: 1/2 PPD Length of Time of Smoking/Using Tobacco: 14 years Have You Smoked in the Last Year: No Household Exposure Type: Cigarettes - Immunization History Most Recent Influenza Vaccination: never Most Recent Tetanus Shot: no, allergic Review of Systems Constitutional: Negative Skin: Negative Eyes: Negative ENT: Negative Respiratory: Negative Cardiovascular: Negative Gastrointestinal: Negative Genitourinary: Negative Motor: Negative Neurovascular: Negative Musculoskeletal: Arthralgia - left knee and distal femur Neurological: Negative Psychological: Negative Is Patient Immunocompromised?: No All Other Systems Reviewed And Are Negative: Yes Physical Exam Triage Information Reviewed: Yes Appearance: Well-Appearing, Well-Nourished, Pain Distress Vital Signs: Initial Vital Signs Temp 98.7 F 04/12/17 13:01 Pulse 97 04/12/17 13:01 Resp 20 04/12/17 13:01 BP 147/81 04/12/17 13:01 Pulse Ox 100 04/12/17 13:01 Vital Signs Reviewed: Yes Eye Exam: Normal Eyes: Positive: Conjunctiva Clear ENT Exam: Normal ENT: Positive: Normal ENT inspection, Hearing grossly normal, Pharynx normal. Negative: Nasal congestion, Nasal drainage, Trismus, Muffled voice, Hoarse voice , Dental tenderness Dental Exam: Normal Neck exam: Normal Neck: Positive: Supple, Nontender, No Lymphadenopathy Respiratory Exam: Normal Respiratory: Positive: Chest non-tender, Lungs clear, Normal breath sounds, No respiratory distress, No accessory muscle use Cardiovascular Exam: Normal Cardiovascular: Positive: RRR, Pulses Normal, Brisk Capillary Refill Musculoskeletal Exam: Normal Musculoskeletal: Positive: ROM Intact, No Edema, Strength Limited @ - left lower leg Neurological Exam: Normal Neurological: Positive: Alert Psychological Exam: Normal Skin Exam: Normal Diagnostics - Laboratory Diagnostic Studies Completed/Ordered: no acute changes, hardware intact Knee Pain Course/Dx - Course Course Of Treatment: jessy, crutches, nsaid follow with pcp prn - Differential Dx/Diagnosis Provider Diagnoses: left knee pain Discharge - Discharge Plan Condition: Stable Disposition: HOME Prescriptions: Ibuprofen TAB* [Motrin TAB* 600 MG] 600 mg PO Q6H PRN #24 tab PRN Reason: pain Patient Education Materials: Knee Pain (ED) Forms: *Work Release Referrals: Josh Miles MD [Medical Doctor] - If Needed Additional Instructions: Pt was given Hydrocodone at urgent care for acute left knee pain 04/12/17
--- NOTE | 2017-04-12 14:19 | RAD ---
Indication: Knee injury. 2 views of left knee demonstrates intramedullary brent in the left femur. No loosening is noted. No hardware failure is noted. There is slight deformity of the lateral aspect of the patella which is likely due to prior fracture with healing. IMPRESSION: Deformity of the patella. No loosening is noted. Intramedullary brent in the femur.
== END 2017-04-12 15:00 | disposition home or self-care (01) ==
LOC: UCEAST 12:55
DX: M25.562 Pain in left knee (principal); F17.210 Nicotine dependence, cigarettes, uncomplicated; Z88.8 Allergy status to other drugs, medicaments and biological substances; Z88.0 Allergy status to penicillin; Z88.5 Allergy status to narcotic agent; Z91.048 Other nonmedicinal substance allergy status; Z88.7 Allergy status to serum and vaccine; Z91.02 Food additives allergy status
CPT/HCPCS: 99213; G0463

== ENCOUNTER 2017-04-13 12:45 | Emergency (ER) | payer SELFPAY ==
[2017-04-13 13:04] VITALS: BP 127/75
--- NOTE | 2017-04-13 13:53 | UC ---
Respiratory Complaint HPI - HPI Summary HPI Summary: Patient presents with an unremarkable past medical history. He presents today with complaints of nasal congestion, nasal discharge, and PND, that he stats is foul tasting, with blood tinged secretions. He also complains of coughing and chest congestions. He denies any tactile or recorded fever, chest pain, dyspnea , abdominal pain, nausea, vomiting, diarrhea, joint pain rashes. - History of Current Complaint Chief Complaint: UCGeneralIllness Stated Complaint: RESP Time Seen by Provider: 04/13/17 13:21 Hx Obtained From: Patient Onset/Duration: Gradual Onset, Lasting Days Timing: Constant Severity Initially: Mild Severity Currently: Moderate Character: Cough: Nonproductive Aggravating Factors: Deep Breaths, Recumbent Position Alleviating Factors: Upright Position, Spontaneous Resolution Associated Signs And Symptoms: Positive: URI, Nasal Congestion, Sinus Discomfort - Risk Factors Pulmonary Embolism Risk Factors: Negative Cardiac Risk Factors: Smoking Pseudomonas Risk Factors: Negative Tuberculosis Risk Factors: Negative - Allergies/Home Medications Allergies/Adverse Reactions: Allergies Allergy/AdvReac Type Severity Reaction Status Date / Time Fluticasone [From Flonase] Allergy Intermediate vomiting Verified 04/13/17 12:58 blood Penicillins [PCN] Allergy Intermediate Vomiting Verified 04/13/17 12:58 Prednisone Allergy Intermediate vomit blood Verified 04/13/17 12:58 Ketorolac Tromethamine Allergy See Comment Verified 04/13/17 12:58 [From Toradol] Molds & Smuts Allergy Congestion Verified 04/13/17 12:58 Tetanus Toxoid Allergy Vomiting Verified 04/13/17 12:58 white vinegar Allergy Rash Uncoded 04/13/17 12:58 PMH/Surg Hx/FS Hx/Imm Hx Previously Healthy: Yes Other History Of: Hepatitis C Negative For: Anticoagulant Therapy - Surgical History Surgical History: Yes Surgery Procedure, Year, and Place: 2012 orif right wrist/left jaw orif/orif left femur-knee cap - Family History Known Family History: Positive: Cardiac Disease, Hypertension, Diabetes, Other - thyroid disease - Social History Lives: With Family Alcohol Use: None Substance Use Type: None, 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 Smoking Status (MU): Heavy Every Day Tobacco Smoker Type: Cigarettes, eCigarettes Amount Used/How Often: 1/2 PPD Length of Time of Smoking/Using Tobacco: 14 years Have You Smoked in the Last Year: No Household Exposure Type: Cigarettes - Immunization History Most Recent Influenza Vaccination: never Most Recent Tetanus Shot: no, allergic Review of Systems Constitutional: Fatigue Skin: Negative Eyes: Negative ENT: Negative, Sore Throat, Nasal Discharge, Sinus Congestion, Sinus Pain/ Tenderness Respiratory: Cough Cardiovascular: Negative Gastrointestinal: Negative Genitourinary: Negative Motor: Negative Neurovascular: Negative Musculoskeletal: Negative Neurological: Negative Psychological: Negative Is Patient Immunocompromised?: No All Other Systems Reviewed And Are Negative: Yes Physical Exam Triage Information Reviewed: Yes Vital Signs: Initial Vital Signs Temp 99.5 F 04/13/17 12:59 Pulse 93 04/13/17 12:59 Resp 18 04/13/17 12:59 BP 127/75 04/13/17 12:59 Pulse Ox 99 04/13/17 12:59 Eye Exam: Normal ENT Exam: Normal ENT: Positive: Pharyngeal erythema, Nasal congestion, Nasal drainage, Sinus tenderness Neck exam: Normal Neck: Positive: 1 Respiratory Exam: Normal Cardiovascular Exam: Normal Abdominal Exam: Normal Skin Exam: Normal UC Diagnostic Evaluation - Laboratory O2 Sat by Pulse Oximetry: 99 Respiratory Course/Dx - Course Course Of Treatment: Patient presents with complaints of sinus pain, pressure and PND findings consistent with sinusitis. He was treated with Augmenting 500 mg TID x 10 days. He was discharged in stable conditions, and verbalzied understanding and in agreement with the discharge plan. - Differential Dx/Diagnosis Differential Diagnosis/HQI/PQRI: Sinusitis Provider Diagnoses: sinusitis Discharge - Discharge Plan Condition: Stable Disposition: HOME Prescriptions: Amoxicillin/Clavulanate TAB* [Augmentin TAB 500 mg*] 500 mg PO TID #30 tab Patient Education Materials: Sinusitis (ED) Referrals: No Primary Care Phys,NOPCP [Primary Care Provider] -
== END 2017-04-13 13:38 | disposition home or self-care (01) ==
LOC: UCEAST 12:45
DX: J32.9 Chronic sinusitis, unspecified (principal); Z72.0 Tobacco use; F10.21 Alcohol dependence, in remission
CPT/HCPCS: 99212; G0463

== ENCOUNTER 2017-04-23 12:22 | Emergency (ER) | payer MEDICAID ==
[2017-04-23 12:37] VITALS: BP 130/80
--- NOTE | 2017-04-23 12:40 | UC ---
FLU HPI - HPI Summary HPI Summary: Pt presents with sinus pain/pressure/congestion, cough, chills, and body aches for the last 2 days. He has a friend who was recently diagnosed with influenza. He has felt hot and cold, but has not taken his temperature. He has been taking tylenol for his discomfort. Denies sore throat, headache, SOB, chest pain, abdominal pain, n/v/d/c. - History of Current Complaint Chief Complaint: UCRespiratory Stated Complaint: FEVER,COUGH,ACHES Hx Obtained From: Patient Onset/Duration: Gradual Onset Severity Currently: Moderate Severity Initially: Moderate Pain Intensity: 6 Pain Scale Used: 0-10 Numeric - Allergy/Home Medications Allergies/Adverse Reactions: Allergies Allergy/AdvReac Type Severity Reaction Status Date / Time Fluticasone [From Flonase] Allergy Intermediate vomiting Verified 04/13/17 12:58 blood Penicillins [PCN] Allergy Intermediate Vomiting Verified 04/13/17 12:58 Prednisone Allergy Intermediate vomit blood Verified 04/13/17 12:58 Ketorolac Tromethamine Allergy See Comment Verified 04/13/17 12:58 [From Toradol] Molds & Smuts Allergy Congestion Verified 04/13/17 12:58 Tetanus Toxoid Allergy Vomiting Verified 04/13/17 12:58 white vinegar Allergy Rash Uncoded 04/13/17 12:58 Home Medications: Home Medications Acetaminophen TAB* [Tylenol TAB*] 650 mg PO PRN 04/23/17 [History] PMH/Surg Hx/FS Hx/Imm Hx Other History Of: Hepatitis C Negative For: Anticoagulant Therapy - Surgical History Surgical History: Yes Surgery Procedure, Year, and Place: 2012 orif right wrist/left jaw orif/orif left femur-knee cap - Family History Known Family History: Positive: Cardiac Disease, Hypertension, Diabetes, Other - thyroid disease - Social History Lives: With Family Alcohol Use: None Substance Use Type: None, 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 Smoking Status (MU): Heavy Every Day Tobacco Smoker Type: Cigarettes, eCigarettes Amount Used/How Often: 1/2 PPD Length of Time of Smoking/Using Tobacco: 14 years Have You Smoked in the Last Year: No Household Exposure Type: Cigarettes - Immunization History Most Recent Influenza Vaccination: never Most Recent Tetanus Shot: no, allergic Review of Systems Constitutional: Fever, Other - Body aches Skin: Negative Eyes: Negative ENT: Ear Ache, Nasal Discharge, Sinus Congestion, Sinus Pain/Tenderness Respiratory: Cough Cardiovascular: Negative Gastrointestinal: Negative Musculoskeletal: Negative Neurological: Negative Psychological: Negative All Other Systems Reviewed And Are Negative: Yes Physical Exam Triage Information Reviewed: Yes Appearance: No Pain Distress, Well-Nourished, Ill-Appearing Vital Signs: Initial Vital Signs Temp 100.1 F 04/23/17 12:32 Pulse 107 04/23/17 12:32 Resp 18 04/23/17 12:32 BP 130/80 04/23/17 12:32 Pulse Ox 98 04/23/17 12:32 Vital Signs Reviewed: Yes Eyes: Positive: Conjunctiva Clear. Negative: Conjunctiva Inflamed, Discharge ENT: Positive: Hearing grossly normal, Pharyngeal erythema, Nasal congestion, Nasal drainage, TM red - Left > Right, Sinus tenderness, Uvula midline. Negative: TM bulging, TM dull, Tonsillar swelling, Tonsillar exudate, Hoarse voice Neck: Positive: Supple, Nontender, Other: - Anterior lymphadenopathy Respiratory: Positive: Chest non-tender, Lungs clear, Normal breath sounds, No respiratory distress, No accessory muscle use Cardiovascular: Positive: RRR, No Murmur, Pulses Normal Abdomen Description: Positive: Nontender, No Organomegaly, Soft. Negative: CVA Tenderness (R), CVA Tenderness (L), Distended, Guarding Bowel Sounds: Positive: Present Neurological: Positive: Alert. Negative: Fatigued Psychological: Positive: Age Appropriate Behavior Skin: Negative: rashes, significant lesion(s) Flu Course/Dx - Course Course Of Treatment: POC influenza was negative. Given his symptoms and recent contact with someone dx'd with the flu - guidelines recommend treatment with Tamiflu. He also has symptoms of otitis media and sinusitis. He currently does not have insurance and he doubts that he can afford Tamiflu - local pharmacies will discount antibiotics, but not tamiflu --- For these reasons, I will rx a zpak in addition to Tamiflu. - Differential Dx/Diagnosis Provider Diagnoses: Influenza. Body aches. Cough. Sinusitis Discharge - Discharge Plan Condition: Stable Disposition: HOME Prescriptions: Azithromycin TAB* [Zithromax TAB (Z-MONICO) 250 mg #6 tabs] 2 tab PO .TODAY, THEN 1 DAILY #1 monico Benzonatate CAP* [Tessalon 100 MG CAP*] 100 mg PO TID PRN #21 cap PRN Reason: Cough Oseltamivir CAP* [Tamiflu CAP*] 75 mg PO BID #10 cap Patient Education Materials: Sinusitis (ED), Influenza (ED) Referrals: No Primary Care Phys,NOPCP [Primary Care Provider] - Additional Instructions: If you develop a fever, shortness of breath, chest pain, new or worsening symptoms - please call your PCP or go to the ED. 1) May take OTC tylenol or ibuprofen as needed for discomfort and fever.
[2017-04-23] MEDS ORDERED: Ibuprofen TAB* 600 MG PO ONE (13:12)
== END 2017-04-23 13:30 | disposition home or self-care (01) ==
LOC: UCEAST 12:22
DX: J11.1 Influenza due to unidentified influenza virus with other respiratory manifestations (principal); J32.9 Chronic sinusitis, unspecified; F17.210 Nicotine dependence, cigarettes, uncomplicated
CPT/HCPCS: 87502; 99212; A9270-GY; G0463

== ENCOUNTER 2017-06-24 10:00 | Emergency (ER) | payer OTHER ==
[2017-06-24 10:13] VITALS: BP 115/84
[2017-06-24] MEDS ORDERED: HYDROcodone/ACETAMIN 5-325 MG* 1 TAB PO ONE (10:50)
--- NOTE | 2017-06-24 10:50 | UC ---
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[employer] WEARING A BIG BUNNY HEAD NO PARESTHESIAS/WEAKNESS - History of Current Complaint Chief Complaint: UCGeneralIllness Stated Complaint: NECK PAIN Time Seen by Provider: 06/24/17 10:40 Hx Obtained From: Patient Onset/Duration: Gradual Onset, Lasting Days Severity: Severe Pain Intensity: 8 Pain Scale Used: 0-10 Numeric Location: Diffuse Character: Spasmotic, Burning Aggravating Factors: Movement Alleviating Factors: Nothing Associated Signs & Symptoms: Positive: Headache - OCCIPITAL Related History: 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 - Allergies/Home Medications Allergies/Adverse Reactions: Allergies Allergy/AdvReac Type Severity Reaction Status Date / Time fluticasone [From Flonase] Allergy Vomiting Verified 06/24/17 10:23 ketorolac [From Toradol] Allergy muscle Verified 06/24/17 10:24 spasms mold Allergy Congestion Verified 06/24/17 10:25 Penicillins Allergy Vomiting Verified 06/24/17 10:23 prednisone Allergy Vomiting Verified 06/24/17 10:24 tetanus and diphtheria Allergy Vomiting Verified 06/24/17 10:25 toxoids white vinegar Allergy Rash Uncoded 06/24/17 10:25 PMH/Surg Hx/FS Hx/Imm Hx Previously Healthy: Yes Other History Of: Hepatitis C Negative For: Anticoagulant Therapy - Surgical History Surgical History: Yes Surgery Procedure, Year, and Place: 2012 orif right wrist/left jaw orif/orif left femur-knee cap - Family History Known Family History: Positive: Cardiac Disease, Hypertension, Diabetes, Other - thyroid disease - Social History Alcohol Use: None Substance Use Type: None, 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 Smoking Status (MU): Heavy Every Day Tobacco Smoker Type: Cigarettes, eCigarettes Amount Used/How Often: 1/2 PPD Length of Time of Smoking/Using Tobacco: 14 years Have You Smoked in the Last Year: No Household Exposure Type: Cigarettes - Immunization History Most Recent Influenza Vaccination: never Most Recent Tetanus Shot: no, allergic Review Of Systems Constitutional: Positive: Negative Skin: Positive: Negative Eyes: Positive: Negative ENT: Positive: Negative Respiratory: Positive: Negative Cardiovascular: Positive: Negative Gastrointestinal: Positive: Negative Genitourinary: Positive: Negative Musculoskeletal: Positive: Negative, Myalgia Neurological: Positive: Headache Psychological: Positive: Negative All Other Systems Reviewed And Are Negative: Yes Physical Exam Triage Information Reviewed: Yes Appearance: Well-Appearing, No Pain Distress, Well-Nourished Vital Signs: Initial Vital Signs Temp 98.6 F 06/24/17 10:10 Pulse 87 06/24/17 10:10 Resp 17 06/24/17 10:10 BP 115/84 06/24/17 10:10 Pulse Ox 99 06/24/17 10:10 Vital Signs Reviewed: Yes Eyes: Positive: Conjunctiva Clear ENT: Positive: Hearing grossly normal. Negative: Nasal congestion, Nasal drainage, Trismus, Dental tenderness, Sinus tenderness, Uvula midline Dental Exam: Normal Neck: Negative: Supple - DECREASE ROM Respiratory: Positive: Lungs clear, Normal breath sounds, No respiratory distress, No accessory muscle use Cardiovascular: Positive: RRR, No Murmur Musculoskeletal: Positive: ROM Intact, No Edema Neurological Exam: Normal Neurological: Positive: Other: - NONFOCAL EXAM Psychological Exam: Normal Neck Pain Course/Dx - Differential Dx/Diagnosis Provider Diagnoses: CERVICAL STRAIN Discharge - Sign-Out/Discharge Documenting (check all that apply): Discharge - Discharge Plan Condition: Stable Disposition: HOME Patient Education Materials: Cervical Strain (ED) Forms: *Work Release Referrals: Cheng Terrazas MD [Primary Care Provider] - 3 Days (RECHECK IN 3-7 DAYS IF NOT BETTER) Additional Instructions: ALEVE 2 TWICE DAILY WITH FOOD PT CONSULT - Billing Disposition and Condition Condition: STABLE Disposition: HOME
== END 2017-06-24 11:08 | disposition home or self-care (01) ==
LOC: UCEAST 10:00
DX: S16.1XXA Strain of muscle, fascia and tendon at neck level, initial encounter (principal); X58.XXXA Exposure to other specified factors, initial encounter; Y93.9 Activity, unspecified; Y92.9 Unspecified place or not applicable; B19.20 Unspecified viral hepatitis C without hepatic coma; Z88.5 Allergy status to narcotic agent; Z88.0 Allergy status to penicillin; Z88.8 Allergy status to other drugs, medicaments and biological substances; F17.210 Nicotine dependence, cigarettes, uncomplicated
CPT/HCPCS: 99213; G0463

== ENCOUNTER 2017-08-05 22:54 | Emergency (ER) | payer OTHER ==
[2017-08-06] MEDS ORDERED: oxyCODONE/Acetamin 5/325 MG* TAB PO ONE (01:43)
--- NOTE | 2017-08-06 01:59 | ED ---
Joce Brewer Angela, scribed for Argenis Martines MD on 08/06/17 at 0136 . Adult Trauma - HPI Summary HPI Summary: This pt is a 26 y/o male presenting to [facility] c/o right knee and right elbow pain s/p fall last night, 08/05/17. Pt reports he was skate boarding at approximately 21:45 last night when he hit some rocks and subsequently fell. He notes he landed on his right side. Denies head strike or LOC. Pt states he is allergic to tetanus. - History of Current Complaint Chief Complaint: EDExtremityUpper Stated Complaint: FALL/RT KNEE AND ELBOW INJURY Time Seen by Provider: 08/06/17 01:32 Hx Obtained From: Patient Mechanism of Injury: Fall Loss of Consciousness: no loss of consciousness Onset/Duration: Started Hours Ago, Traumatic, Still Present Onset of Pain: Immediate Current Severity: Severe Pain Intensity: 9 Pain Scale Used: 0-10 Numeric Location: Extremities - right elbow, right knee Aggravating Factor(s): Nothing Alleviating Factor(s): Nothing Associated Signs & Symptoms: Negative: Loss of Consciousness, Memory Loss, Numbness/Weakness, Significant Blood Loss, Ecchymosis - Allergy/Home Medications Allergies/Adverse Reactions: Allergies Allergy/AdvReac Type Severity Reaction Status Date / Time fluticasone [From Flonase] Allergy Vomiting Verified 08/05/17 23:01 ketorolac [From Toradol] Allergy muscle Verified 08/05/17 23:01 spasms mold Allergy Congestion Verified 08/05/17 23:01 Penicillins Allergy Vomiting Verified 08/05/17 23:01 prednisone Allergy Vomiting Verified 08/05/17 23:01 tetanus and diphtheria Allergy Vomiting Verified 08/05/17 23:01 toxoids white vinegar Allergy Rash Uncoded 08/05/17 23:01 PMH/Surg Hx/FS Hx/Imm Hx Endocrine/Hematology History: Denies: Hx Anticoagulant Therapy, Hx Diabetes, Hx Thyroid Disease, Other Endocrine/Hematological Disorders Cardiovascular History: Reports: Other Cardiovascular Problems/Disorders - FLUTTERS Denies: Hx Hypertension, Hx Pacemaker/ICD Respiratory History: Reports: Hx Asthma, Hx Chronic Bronchitis, Hx Chronic Obstructive Pulmonary Disease (COPD) Denies: Other Respiratory Problems/Disorders GI History: Reports: Hx Gastroesophageal Reflux Disease, Hx Hiatal Hernia, Other GI Disorders - hiatal hernia Denies: Hx Ulcer History: Denies: Hx Dialysis, Hx Renal Disease, Other Problems/Disorders Musculoskeletal History: Reports: Hx Orthopedic Injury - Right wrist dislocation ; Fractured left forearm; Left Patella Fx; Fx Femur;, Other Musculoskeletal History - see above Sensory History: Denies: Other Sensory Impairments Opthamlomology History: Denies: Other Sensory Impairments Neurological History: Reports: Hx Migraine, Other Neuro Impairments/Disorders - BACK INJURY 2007- MUSCLES Denies: Hx Dementia, Hx Seizures Psychiatric History: Reports: Hx Anxiety, Hx Depression, Hx Bipolar Disorder, Hx Substance Abuse - synthetic drugs 1 yr ago Denies: Hx Eating Disorder, Hx of Violent Episodes Against Others, Other Psychiatric Issues/Disorders - Surgical History Surgery Procedure, Year, and Place: 2012 orif right wrist/left jaw orif/orif left femur-knee cap - Immunization History Date of Tetanus Vaccine: Up to date Date of Influenza Vaccine: None Infectious Disease History: No Infectious Disease History: Denies: Hx Clostridium Difficile, Hx Hepatitis, Hx Human Immunodeficiency Virus (HIV), Hx of Known/Suspected MRSA - has had staph on his face, Hx Shingles , Hx Tuberculosis, Hx Known/Suspected VRE, Hx Known/Suspected VRSA, History Other Infectious Disease, Traveled Outside the [place] in Last 30 Days - Family History Known Family History: Positive: Cardiac Disease, Hypertension, Diabetes, Other - thyroid disease - Social History Alcohol Use: None Hx Substance Use: Yes Substance Use Type: Reports: None, 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 Hx Tobacco Use: Yes Smoking Status (MU): Heavy Every Day Tobacco Smoker Type: Cigarettes, eCigarettes Amount Used/How Often: 1/2 PPD Length of Time of Smoking/Using Tobacco: 14 years Have You Smoked in the Last Year: No Review of Systems Negative: Fever, Chills ENT: Negative Cardiovascular: Negative Respiratory: Negative Musculoskeletal: Other - right elbow pain, right knee pain Skin: Other - abrasion on right elbow and right knee Neurological: Negative All Other Systems Reviewed And Are Negative: Yes Physical Exam - Summary Physical Exam Summary: VITAL SIGNS: Reviewed. GENERAL: Patient is a well-developed and nourished male who is lying comfortable in the stretcher. Patient is not in any acute respiratory distress. HEAD AND FACE: No signs of trauma. No ecchymosis, hematomas or skull depressions. No sinus tenderness. EYES: PERRLA, EOMI x 2, No injected conjunctiva, no nystagmus. EARS: Hearing grossly intact. Ear canals and tympanic membranes are within normal limits. MOUTH: Oropharynx within normal limits. NECK: Supple, trachea is midline, no adenopathy, no JVD, no carotid bruit, no c- spine tenderness, neck with full ROM. CHEST: Symmetric, no tenderness at palpation LUNGS: Clear to auscultation bilaterally. No wheezing or crackles. CVS: Regular rate and rhythm, S1 and S2 present, no murmurs or gallops appreciated. ABDOMEN: Soft, non-tender. No signs of distention. No rebound no guarding, and no masses palpated. Bowel sounds are normal. EXTREMITIES: FROM in all major joints, no cyanosis or clubbing. RUE: abrasion over the right elbow, no swelling, and full ROM. RLE: mild abrasion over the right knee. NEURO: Alert and oriented x 3. No acute neurological deficits. Speech is normal and follows commands. SKIN: Dry and warm Triage Information Reviewed: Yes Vital Signs On Initial Exam: Initial Vitals Temp Pulse Resp BP Pulse Ox 98.8 F 125 18 129/92 100 08/05/17 22:58 08/05/17 22:58 08/05/17 22:58 08/05/17 22:58 08/05/17 22:58 Vital Signs Reviewed: Yes Diagnostics - Vital Signs Vital Signs Temp Pulse Resp BP Pulse Ox 08/05/17 22:58 98.8 F 125 18 129/92 100 - Laboratory Lab Statement: Any lab studies that have been ordered have been reviewed, and results considered in the medical decision making process. - Radiology Right elbow XR Xray Interpretation: No Acute Changes - No fractures seen. Official radiology report is pending. Radiology Interpretation Completed By: ED Physician Right knee XR Xray Interpretation: No Acute Changes - No fractures seen. Official radiology report is pending. Radiology Interpretation Completed By: ED Physician Adult Trauma Course/Dx - Course Assessment/Plan: This pt is a 26 y/[facility] right knee and right elbow pain s/p fall last night, 08/05/17. Pt reports he was skate boarding at approximately 21:45 last night when he hit some rocks and subsequently fell. He notes he landed on his right side. Denies head strike or LOC. Right knee and right elbow XRs are both negative for fractures. Pt's abrasions were cleaned and dressed in the ED. He states he is allergic to tetanus, therefore he was not given a tetanus shot today. Pt will be discharged home with follow up from his PCP. - Diagnoses Provider Diagnoses: Multiple abrasions Discharge - Sign-Out/Discharge Documenting (check all that apply): Discharge/Admit/Transfer - Discharge - Discharge Plan Condition: Stable Disposition: HOME Patient Education Materials: Abrasion (ED) Forms: *Work Release Referrals: Cheng Terrazas MD [Primary Care Provider] - Additional Instructions: Please follow up with your primary care provider. RETURN TO EMERGENCY DEPARTMENT FOR ANY NEW OR WORSENING SYMPTOMS. The documentation as recorded by the Joce cox Angela accurately reflects the service I personally performed and the decisions made by , Argenis Martines MD.
[2017-08-06 02:33] VITALS: BP 132/70
--- NOTE | 2017-08-06 08:06 | RAD ---
INDICATION: Right knee injury. TECHNIQUE: 4 views of the right knee were obtained. FINDINGS: The bones are in normal alignment. No joint effusion or fracture is seen. Joint spaces appear maintained. IMPRESSION: NO EVIDENCE FOR FRACTURE.
--- NOTE | 2017-08-06 08:08 | RAD ---
INDICATION: RIGHT elbow pain following injury. COMPARISON: No relevant prior exams available on the [facility] PACS for comparison. TECHNIQUE: AP, lateral, and oblique views RIGHT elbow. REPORT: Negative for fat pad displacement to indicate effusion. No cortical disruption or suspicious trabecular irregularity to suggest fracture. Normal articular alignment unremarkable soft tissue contours. IMPRESSION: Negative exam.
== END 2017-08-06 01:57 | disposition home or self-care (01) ==
LOC: ED 22:54
DX: S80.211A Abrasion, right knee, initial encounter (principal); S50.311A Abrasion of right elbow, initial encounter; V00.131A Fall from skateboard, initial encounter; Y93.51 Activity, roller skating (inline) and skateboarding; Y92.9 Unspecified place or not applicable; I49.8 Other specified cardiac arrhythmias; J44.9 Chronic obstructive pulmonary disease, unspecified; K21.9 Gastro-esophageal reflux disease without esophagitis; K44.9 Diaphragmatic hernia without obstruction or gangrene; G43.909 Migraine, unspecified, not intractable, without status migrainosus; F41.9 Anxiety disorder, unspecified; F31.9 Bipolar disorder, unspecified; Z88.5 Allergy status to narcotic agent; Z88.0 Allergy status to penicillin; Z88.7 Allergy status to serum and vaccine; Z88.8 Allergy status to other drugs, medicaments and biological substances; Z87.891 Personal history of nicotine dependence
CPT/HCPCS: 99282; A9270-GY

== ENCOUNTER 2017-09-04 15:03 | Emergency (ER) | payer OTHER ==
[2017-09-04] MEDS ORDERED: Ondansetron INJ* 2 MG/ML VIAL IV ONE (16:03)
[2017-09-04] MEDS ORDERED: Famotidine IV* 10 MG/ML 2 ML (20 mg) IV SLOW PU ONE (16:03)
[2017-09-04] MEDS ORDERED: NS 0.9% 1000 ML* 1,000 ML BOLUS ONE (16:12)
--- NOTE | 2017-09-04 16:12 | UC ---
Abdominal Pain Male HPI - HPI Summary HPI Summary: 26 yo male with the onset of N/V/D this AM at 6 intermittent 4/10 abd pain, crampy no f/c ate clams yesterday - History of Current Complaint Chief Complaint: UCGI Stated Complaint: VOMITING, AND DIARRHEA Time Seen by Provider: 09/04/17 15:56 Hx Obtained From: Patient Onset/Duration: Gradual Onset, Lasting Hours Timing: Constant Severity Initially: Moderate Severity Currently: Moderate Pain Intensity: 4 Pain Scale Used: 0-10 Numeric Location: Diffuse Character: Cramping Aggravating Factor(s): Nothing Alleviating Factor(s): Nothing Associated Signs And Symptoms: Positive: Decreased Appetite, Nausea, Vomiting, Diarrhea - Allergies/Home Medications Allergies/Adverse Reactions: Allergies Allergy/AdvReac Type Severity Reaction Status Date / Time fluticasone [From Flonase] Allergy Vomiting Verified 09/04/17 15:30 ketorolac [From Toradol] Allergy muscle Verified 09/04/17 15:30 spasms mold Allergy Congestion Verified 09/04/17 15:30 Penicillins Allergy Vomiting Verified 09/04/17 15:30 prednisone Allergy Vomiting Verified 09/04/17 15:30 tetanus and diphtheria Allergy Vomiting Verified 09/04/17 15:30 toxoids white vinegar Allergy Rash Uncoded 09/04/17 15:30 Home Medications: Home Medications Cyclobenzaprine TAB* [Flexeril 10 MG TAB*] 10 mg PO Q8HR PRN 09/04/17 [History Confirmed 09/04/17] Meloxicam [Mobic] 15 mg PO DAILY 09/04/17 [History Confirmed 09/04/17] PMH/Surg Hx/FS Hx/Imm Hx Previously Healthy: Yes Other History Of: Hepatitis C Negative For: Anticoagulant Therapy - Surgical History Surgical History: Yes Surgery Procedure, Year, and Place: 2012 orif right wrist/left jaw orif/orif left femur-knee cap - Family History Known Family History: Positive: Cardiac Disease, Hypertension, Diabetes, Other - thyroid disease - Social History Alcohol Use: None Substance Use Type: None 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 Smoking Status (MU): Heavy Every Day Tobacco Smoker Type: Cigarettes, eCigarettes Amount Used/How Often: 1/2 PPD Length of Time of Smoking/Using Tobacco: 14 years Have You Smoked in the Last Year: No Household Exposure Type: Cigarettes - Immunization History Most Recent Influenza Vaccination: never Most Recent Tetanus Shot: no, allergic Review of Systems Constitutional: Negative Skin: Negative Eyes: Negative ENT: Negative Respiratory: Negative Cardiovascular: Negative Gastrointestinal: Abdominal Pain, Vomiting, Diarrhea, Nausea Genitourinary: Negative Motor: Negative Neurovascular: Negative Musculoskeletal: Negative Neurological: Negative Psychological: Negative Is Patient Immunocompromised?: No All Other Systems Reviewed And Are Negative: Yes Physical Exam Triage Information Reviewed: Yes Appearance: Well-Appearing, No Pain Distress, Well-Nourished Vital Signs: Initial Vital Signs Temp 99.1 F 09/04/17 15:24 Pulse 103 09/04/17 15:24 Resp 16 09/04/17 15:24 BP 117/89 09/04/17 15:24 Pulse Ox 99 09/04/17 15:24 Vital Signs Reviewed: Yes Eyes: Positive: Conjunctiva Clear ENT: Positive: Hearing grossly normal. Negative: Nasal congestion, Nasal drainage, Trismus, Muffled voice, Hoarse voice Neck: Positive: Supple, Nontender, No Lymphadenopathy Respiratory: Positive: Lungs clear, Normal breath sounds, No respiratory distress, No accessory muscle use Cardiovascular: Positive: RRR, No Murmur, Tachycardia Abdomen Description: Positive: Soft. Negative: Nontender - diffuse mild tenderness to deep palpation Bowel Sounds: Positive: Present Musculoskeletal: Positive: ROM Intact, No Edema Neurological: Positive: Alert Psychological Exam: Normal Skin Exam: Normal Re-Evaluation - Re-Evaluation First Eval Re-Evaluation Time: 17:31 Change: Improved - no longer tachycardic/no nausea/pain decreased Abd Pain Male Course/Dx - Differential Dx/Clinical Impression Provider Diagnoses: acute gastroenteritis Discharge - Sign-Out/Discharge Documenting (check all that apply): Discharge/Admit/Transfer - Discharge Plan Condition: Improved Disposition: HOME Prescriptions: Ondansetron TAB* [Zofran Tab*] 4 mg PO Q6H PRN #6 tab PRN Reason: Nausea Patient Education Materials: Gastroenteritis (ED) Forms: *Work Release Referrals: Cheng Terrazas MD [Primary Care Provider] - If Needed Additional Instructions: recheck tomorrow if not improved recheck sooner for new or worsening symptoms - Billing Disposition and Condition Condition: IMPROVED Disposition: Home
[2017-09-04 17:28] VITALS: BP 125/87
== END 2017-09-04 17:35 | disposition home or self-care (01) ==
LOC: UCEAST 15:03
DX: K52.9 Noninfective gastroenteritis and colitis, unspecified (principal); B19.20 Unspecified viral hepatitis C without hepatic coma; Z88.5 Allergy status to narcotic agent; Z88.0 Allergy status to penicillin; Z88.7 Allergy status to serum and vaccine; Z88.8 Allergy status to other drugs, medicaments and biological substances; Z82.49 Family history of ischemic heart disease and other diseases of the circulatory system; Z83.3 Family history of diabetes mellitus; Z83.49 Family history of other endocrine, nutritional and metabolic diseases; F17.210 Nicotine dependence, cigarettes, uncomplicated
CPT/HCPCS: 81003; 96360; 96374; 96375; 99212; G0463; J2405

== ENCOUNTER 2017-10-03 20:23 | Emergency (ER) | payer OTHER ==
[2017-10-03 20:35] VITALS: BP 122/84
[2017-10-03] MEDS ORDERED: Ipratropium 0.5MG/2.5ML NEB* 0.5 MG/2.5 ML NEB.SOLN INH ONE (20:45)
[2017-10-03] MEDS ORDERED: Albuterol 2.5 MG/3 ML NEB.SOL* (0.083%) INH ONE (20:45)
[2017-10-03] MEDS ORDERED: Azithromycin TAB* 250 MG PO ONE (20:45)
[2017-10-03] MEDS ORDERED: Albuterol HFA INHALER* 8 gm MDI INH ONE (20:45)
--- NOTE | 2017-10-03 20:45 | UC ---
Respiratory Complaint HPI - HPI Summary HPI Summary: Patient is a 26-year-old male with a one-week history of cough and congestion. Severe nasal congestion with postnasal drip as well as sore throat. He now has been wheezing and complaints of chest tightness. He is out of his inhalers. He said he is allergic to prednisone. He has had multiple episodes of bronchitis and sinusitis in the past. - History of Current Complaint Chief Complaint: UCRespiratory Stated Complaint: RESP COMPLAINT Time Seen by Provider: 10/03/17 20:39 Hx Obtained From: Patient Onset/Duration: Gradual Onset Timing: Constant Severity Initially: Moderate Severity Currently: Moderate Pain Intensity: 6 Pain Scale Used: 0-10 Numeric Character: Cough: Productive Aggravating Factors: Nothing Alleviating Factors: Nothing Associated Signs And Symptoms: Positive: Wheezing, Nasal Congestion, Hoarseness , Sinus Discomfort - Allergies/Home Medications Allergies/Adverse Reactions: Allergies Allergy/AdvReac Type Severity Reaction Status Date / Time fluticasone [From Flonase] Allergy Vomiting Verified 10/03/17 20:35 ketorolac [From Toradol] Allergy muscle Verified 10/03/17 20:35 spasms mold Allergy Congestion Verified 10/03/17 20:35 Penicillins Allergy Vomiting Verified 10/03/17 20:35 prednisone Allergy Vomiting Verified 10/03/17 20:35 tetanus and diphtheria Allergy Vomiting Verified 10/03/17 20:35 toxoids white vinegar Allergy Rash Uncoded 10/03/17 20:35 PMH/Surg Hx/FS Hx/Imm Hx Previously Healthy: Yes Respiratory History: Asthma, Bronchitis Other History Of: Hepatitis C Negative For: Anticoagulant Therapy - Surgical History Surgical History: Yes Surgery Procedure, Year, and Place: 2012 orif right wrist/left jaw orif/orif left femur-knee cap - Family History Known Family History: Positive: Cardiac Disease, Hypertension, Diabetes, Other - thyroid disease - Social History Alcohol Use: None Substance Use Type: None 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 Smoking Status (MU): Heavy Every Day Tobacco Smoker Type: Cigarettes, eCigarettes Amount Used/How Often: 1/2 PPD Length of Time of Smoking/Using Tobacco: 14 years Have You Smoked in the Last Year: No Household Exposure Type: Cigarettes - Immunization History Most Recent Influenza Vaccination: never Most Recent Tetanus Shot: no, allergic Review of Systems Constitutional: Negative Skin: Negative Eyes: Negative ENT: Sore Throat, Nasal Discharge, Sinus Congestion, Sinus Pain/Tenderness Respiratory: Cough Cardiovascular: Negative Gastrointestinal: Negative Genitourinary: Negative Motor: Negative Neurovascular: Negative Musculoskeletal: Negative Neurological: Negative Psychological: Negative Is Patient Immunocompromised?: No All Other Systems Reviewed And Are Negative: Yes Physical Exam Triage Information Reviewed: Yes Appearance: Well-Appearing, No Pain Distress, Well-Nourished Vital Signs: Initial Vital Signs Temp 99.4 F 10/03/17 20:29 Pulse 99 10/03/17 20:29 Resp 18 10/03/17 20:29 BP 122/84 10/03/17 20:29 Pulse Ox 99 10/03/17 20:29 Vital Signs Reviewed: Yes Eyes: Positive: Conjunctiva Clear ENT: Positive: Hearing grossly normal, Nasal congestion, Nasal drainage, Hoarse voice, Sinus tenderness, Uvula midline. Negative: Tonsillar swelling, Tonsillar exudate, Trismus, Muffled voice Neck: Positive: Supple, Nontender, No Lymphadenopathy Respiratory: Positive: No respiratory distress, No accessory muscle use, Wheezing - with forced expiration Cardiovascular: Positive: RRR Musculoskeletal: Positive: ROM Intact, No Edema Neurological: Positive: Alert Psychological Exam: Normal Skin Exam: Normal UC Diagnostic Evaluation - Laboratory O2 Sat by Pulse Oximetry: 99 - normal/not hypoxic Re-Evaluation - Re-Evaluation First Eval Re-Evaluation Time: 21:16 Change: Improved Respiratory Course/Dx - Differential Dx/Diagnosis Provider Diagnoses: acute bronchitis with bronchospasm Discharge - Sign-Out/Discharge Documenting (check all that apply): Discharge/Admit/Transfer - Discharge Plan Condition: Stable Disposition: HOME Prescriptions: Azithromycin TAB* [Zithromax TAB*] 250 mg PO DAILY #6 tab hydrOXYzine HCL TAB* [Atarax TAB*] 25 mg PO QID PRN #20 tab PRN Reason: Allergy Symptoms Referrals: Cheng Terrazas MD [Primary Care Provider] - 5 Days - Billing Disposition and Condition Condition: STABLE Disposition: Home
== END 2017-10-03 21:30 | disposition home or self-care (01) ==
LOC: UCEAST 20:23
DX: J20.9 Acute bronchitis, unspecified (principal); J02.9 Acute pharyngitis, unspecified; J45.909 Unspecified asthma, uncomplicated; F17.210 Nicotine dependence, cigarettes, uncomplicated; Z88.8 Allergy status to other drugs, medicaments and biological substances; Z88.0 Allergy status to penicillin; Z91.02 Food additives allergy status; Z88.7 Allergy status to serum and vaccine; Z91.09 Other allergy status, other than to drugs and biological substances
CPT/HCPCS: 99213; A9270-GY; G0463

== ENCOUNTER 2017-11-06 11:12 | Emergency (ER) | payer OTHER ==
--- OUTSIDE RECORDS SUMMARY | 2017-11-06 11:23 | XMS REPORT ---
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 Ki,FACP Onset: 02/05/2011 Acute hepatitis C Ayse Forte M.D.,PEGGY Onset: 01/29/2011 Inflammatory disease of liver Cheng Terrazas Inactive Ki,FACP Inactive: 02/05/2011 Family History Date Family Member(s) Problem(s) Comments Mother 37 as of 01/04/2009 Social History Type Date Description Comments Marital Status Lives With Alone 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 [employer] Cigarette Use Current Cigarette Smoker 1 05/05/17 cutting down - 1/2 Pack Daily pk/day ETOH Use Denies alcohol use Recreational Drug Use 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 Using marijuana for pain control Smoking Light tobacco smoker (10 or fewer cigarettes/day) Daily Caffeine Does Not Consume Caffeine Exercise Type/Frequency Exercises regularly walking, heavy lifting at work Currently Active Patient is currently sexually partner had a tubal active ligation Allergies, Adverse Reactions, Alerts Date Description Reaction Status Severity Comments 06/20/2016 Penicillin active 06/20/2016 Toradol active 06/20/2016 Flonase active 06/20/2016 Prednisone active 03/12/2017 Fluticasone Nausea and active Moderate Vomiting Blood Vomiting 03/12/2017 Ketorolac active Mild to Moderate 03/12/2017 Mold active Mild to Moderate Congestion 03/12/2017 Tetanus Toxoids Nausea and active Moderate Vomiting 03/12/2017 White Vinegar Urticaria active Mild to Moderate 03/12/2017 Smuts active Mild to Moderate Congestion 01/04/2009 NKDA inactive Medications Medication Date Status Form Strength Qnty SIG Indications Ordering Provider Cetirizine HCL 10/07/ Active Tablets 10mg 30tab 1 by J20.9 Jesus E. 2018 s mouth Galina, every day M.D. Cyclobenzaprine 08/07/ Active Tablets 10mg 60tab one by M54.2 Jesus EMerline HCL 2018 s mouth Galina, three M.D. times a day as needed spasm Meloxicam 06/30/ Active Tablets 7.5mg 45tab 1 -2 M54.2 Hema 2018 s tablet by MARA Islas mouth once daily as needed Proair HFA 05/05/ Active Aerosol 108(90Bas 8.500 2 puffs Jesus Moses 2017 e) gm four Galina, mcg/Act times a M.D. day as needed Tylenol 00// Active Capsules 325mg 2 tablets Unknown 0000 every 4 hours as needed for pain Cephalexin 08/07/ Hx Tablets 500mg 21tab take one L03.113 Hema 2018 - s tablet MARA Islas 08/14/ every 8 2018 hours for 7 days Cyclobenzaprine 06/30/ Hx Tablets 10mg 60tab one by M54.2 Hema HCL 2017 - s mouth MARA Islas 08/07/ three 2018 times a day as needed spasm No Active 06/17/ Hx Unknown Medications 2016 - 2016 Ondansetron Odt 03/22/ Hx Tablets 4mg 30tab po tid 536.2 Cheng 2009 Dispers s prn Katia Terrazas M.D.,FACP Celebrex 03/22/ Hx Capsules 200mg 50cap 1 po bid 786.59 Cheng 2009 s prjustina Terrazas M.D.,FACP Oxycontin 02/19/ Hx Tablets ER 30mg 30tab 1 tab po 789.09 Cheng 2009 - 12HR s q12h PAPratima Chung. [place], 03/22/ [id number] Ki,FACP 2009 74w Colace 02/19/ Hx Capsules 100mg 60cap 1 po bid 789.09 Cheng 2009 marvel Terrazas M.D.,FAC [facility] Omeprazole 02/13/ Hx Tablets DR 20mg 60tab 1 cap bid 789.09 Frankie 2009 marvel Hunt M.D. Tramadol 02/13/ Hx Tablets 37.5-325m 21tab 1 tab tid Frankie Suarez/Acet 2009 - g marvel Hunt aminophen 03/22/ Ki 2009 Maxalt-[employer] 11/28/ Hx Tablets 10mg 5tabs as 784.0 Frankie 2009 Dispers directed Ki Hunt Ibuprofen 07/03/ Hx Tablets 800mg 60tab 1 tab po 724.2 Vincent 2009 - s every 8 c, 02/13/ prn Radomir, 2009 Ki Robaxin-750 07/03/ Hx Tablets 750mg 40tab 2 po bid 724.2 Vincent 2009 - s c, 11/28/ Radomir, 2009 Ki Tessalon Perles 01/04/ Hx Capsules 100mg 30cap 1 po tid 465.9 Vincent 2008 - s c, 07/03/ Radomir, 2009 Ki Ambien / Hx Tablets 10mg 30tab 1 po qhs Unknown 0000 - s prn sleep 07/03/ insomnia 2009 Amoxicillin / Hx Tablets 875mg 20tab 1 tab po Unknown 0000 - s bid x 10 07/03/ d. 2009 Lamiactel / Hx 100mg 1 po day Unknown 0000 - 2009 Lamictal / Hx Tablets 100mg 1 tabs po Unknown 0000 qd Ibuprofen / Hx Tablets 400mg by mouth Unknown 0000 - every 4 06/30/ to 6 2018 hours as needed Azithromycin 00/ Hx Tablets 500mg 1 tablet Unknown 0000 - by mouth 03/04/ daily for 2016 7 days Prochlorperazine / Hx Tablets 5mg 1 by Unknown Maleate 0000 - mouth 05/05/ three 2018 times a day as needed Albuterol Sulfate 00/00/ Hx Nebulizer 1.25mg/3M 75ml every 4-6 Elisa 0000 - L hours as Reeves, needed [employer] 2018 for cough/amos rtness of breath Immunizations CPT Code Status Date Vaccine Lot # [id number] Given 02/05/2011 Hepatitis B Vaccine Adult Dosage [id number] Given 02/05/2011 Hepatitis A Vaccine Adult Dosage [id number] Given 01/29/2011 Influenza Virus 3Yrs & Over [id number] Given 02/19/2010 Influenza Virus 3Yrs & Over [id number] Given 02/19/2010 Influenza Virus 3Yrs & Over [id number] Vital Signs Date Vital Result Comment 10/07/2017 Height 71.5 inches 5'11.50" Weight 196.00 lb Heart Rate 95 /min BP Systolic Sitting 140 mmHg BP Diastolic Sitting 80 mmHg Body Temperature 98.5 F O2 % BldC Oximetry 97 % BMI (Body Mass Index) 27.0 kg/m2 08/07/2017 Weight 186.50 lb Heart Rate 114 /min BP Systolic 132 mmHg BP Diastolic 74 mmHg Body Temperature 98.4 F O2 % BldC Oximetry 97 % 06/30/2017 Weight 192.25 lb Heart Rate 91 /min BP Systolic 132 mmHg BP Diastolic 78 mmHg Body Temperature 97.3 F O2 % BldC Oximetry 97 % 05/05/2017 Height 71.5 inches 5'11.50" Weight 177.00 lb Heart Rate 92 /min BP Systolic Sitting 116 mmHg BP Diastolic Sitting 76 mmHg Body Temperature 98.2 F O2 % BldC Oximetry 96 % BMI (Body Mass Index) 24.3 kg/m2 06/20/2016 Heart Rate 78 /min BP Systolic 114 mmHg BP Diastolic 72 mmHg Respiratory Rate 18 /min Body Temperature 98.4 F 06/17/2016 Height 73 inches 6'1" Weight 151.00 lb Heart Rate 84 /min BP Systolic 124 mmHg BP Diastolic 70 mmHg Respiratory Rate 16 /min Body Temperature 97.7 F BMI (Body Mass Index) 19.9 kg/m2 02/05/2011 Weight 161.00 lb Heart Rate 85 /min BP Systolic Sitting 104 mmHg BP Diastolic Sitting 65 mmHg 01/29/2011 Weight 155.00 lb Heart Rate 80 /min BP Systolic Sitting 110 mmHg BP Diastolic Sitting 80 mmHg 03/22/2010 Height 73 inches 6'1" Weight 159.00 lb Heart Rate 76 /min BP Systolic Sitting 120 mmHg BP Diastolic Sitting 78 mmHg BMI (Body Mass Index) 21.0 kg/m2 02/19/2010 Weight 162.00 lb Heart Rate 80 /min BP Systolic Sitting 118 mmHg BP Diastolic Sitting 70 mmHg 02/13/2010 Weight 162.00 lb Heart Rate 78 /min BP Systolic Sitting 94 mmHg BP Diastolic Sitting 74 mmHg 11/28/2009 Weight 176.00 lb Heart Rate 108 /min BP Systolic Sitting 120 mmHg BP Diastolic Sitting 80 mmHg 08/01/2009 Weight 200.00 lb Heart Rate 76 /min BP Systolic Sitting 132 mmHg BP Diastolic Sitting 70 mmHg 07/03/2009 Weight 196.75 lb Heart Rate 88 /min BP Systolic 140 mmHg BP Diastolic 82 mmHg Respiratory Rate 16 /min 01/04/2009 Height 72 inches 6'0" Weight 205.00 lb Heart Rate 72 /min BP Systolic Sitting 120 mmHg BP Diastolic Sitting 70 mmHg BMI (Body Mass Index) 27.8 kg/m2 Results Test Date Test Result H/L Range Note Poc Urinalysis 09/04/2017 Poc Glucose, Urine Negative Negative Poc Bilirubin, Urine Negative Negative Poc Ketone, Urine Negative Negative Poc Specific [place], Urine 1.025 1.010-1.030 Poc Blood, Urine Negative Negative Poc pH, Urine 5.5 5-9 Poc Protein, Urine Negative Negative Poc Urobilinogen, Urine 0.2 Negative Poc Nitrite, Urine Negative Negative Poc Leukocytes, Urine Negative Negative Poc Color, Urine Yellow Poc Clarity, Urine Clear 1 Laboratory test finding 05/16/2017 Hepatitis C Genotype TNP () 2 Hepatitis C Rna Quant Undetected IU/mL Undetected 3 Rapid Influenza A & B 02/24/2017 Influenza A Molecular NEGATIVE Negative 4 Molecular Influenza B Molecular NEGATIVE Negative Laboratory test finding 02/24/2017 Rapid Strep Molecular Negative Negative 5 Laboratory test finding 09/07/2016 C Reactive Protein 4.07 mg/L < 5.00 6 Laboratory test finding 09/07/2016 Lactic Acid 0.6 mmol/L 0.5-2.0 7 Comp Metabolic Panel 09/07/2016 Sodium 136 mmol/L 133-145 Potassium 3.9 mmol/L 3.5-5.0 Chloride 105 mmol/L 101-111 Co2 Carbon Dioxide 24 mmol/L 22-32 Anion Gap 7 mmol/L 2-11 Glucose 91 mg/dL 70-100 Blood Urea Nitrogen 22 mg/dL 6-24 Creatinine 0.90 mg/dL 0.67-1.17 BUN/Creatinine Ratio 24.4 High 8-20 Calcium 8.9 mg/dL 8.6-10.3 Total Protein 6.3 g/dL Low 6.4-8.9 Albumin 4.0 g/dL 3.2-5.2 Globulin 2.3 g/dL 2-4 Albumin/Globulin Ratio 1.7 1-3 Total Bilirubin 0.50 mg/dL 0.2-1.0 Alkaline Phosphatase 66 U/L 34-104 Alt 18 U/L 7-52 Ast 14 U/L 13-39 Egfr Non- 102.0 >60 Egfr 131.2 >60 8 CBC Auto Diff 09/07/2016 White Blood Count 10.1 10^3/uL 3.5-10.8 Red Blood Count 4.69 10^6/uL 4.0-5.4 Hemoglobin 13.7 g/dL Low 14.0-18.0 Hematocrit 42 % 42-52 Mean Corpuscular Volume 89 fL 80-94 Mean Corpuscular Hemoglobin 29 pg 27-31 Mean Corpuscular HGB Conc 33 g/dL 31-36 Red Cell Distribution Width 14 % 10.5-15 Platelet Count 174 10^3/uL 150-450 Mean Platelet Volume 10 um3 7.4-10.4 Abs Neutrophils 5.0 10^3/uL 1.5-7.7 Abs Lymphocytes 3.5 10^3/uL 1.0-4.8 Abs Monocytes 0.9 10^3/uL High 0-0.8 Abs Eosinophils 0.5 10^3/uL 0-0.6 Abs Basophils 0.1 10^3/uL 0-0.2 Abs Nucleated RBC 0 10^3/uL Granulocyte % 50.2 % 38-83 Lymphocyte % 34.6 % 25-47 Monocyte % 9.0 % 1-9 Eosinophil % 5.2 % 0-6 Basophil % 1.0 % 0-2 Nucleated Red Blood Cells % 0 CBC Auto Diff 07/07/2016 White Blood Count 8.2 10^3/uL 3.5-10.8 Red Blood Count 4.65 10^6/uL 4.0-5.4 Hemoglobin 13.6 g/dL Low 14.0-18.0 Hematocrit 41 % Low 42-52 Mean Corpuscular Volume 89 fL 80-94 Mean Corpuscular Hemoglobin 29 pg 27-31 Mean Corpuscular HGB Conc 33 g/dL 31-36 Red Cell Distribution Width 13 % 10.5-15 Platelet Count 174 10^3/uL 150-450 Mean Platelet Volume 11 um3 High 7.4-10.4 Abs Neutrophils 4.4 10^3/uL 1.5-7.7 Abs Lymphocytes 2.7 10^3/uL 1.0-4.8 Abs Monocytes 0.7 10^3/uL 0-0.8 Abs Eosinophils 0.3 10^3/uL 0-0.6 Abs Basophils 0.1 10^3/uL 0-0.2 Abs Nucleated RBC 0.01 10^3/uL Granulocyte % 54.0 % 38-83 Lymphocyte % 33.3 % 25-47 Monocyte % 8.8 % 1-9 Eosinophil % 3.1 % 0-6 Basophil % 0.8 % 0-2 Nucleated Red Blood Cells % 0.1 Comp Metabolic Panel 07/07/2016 Sodium 137 mmol/L 133-145 Chloride 106 mmol/L 101-111 Co2 Carbon Dioxide 26 mmol/L 22-32 Glucose 88 mg/dL 70-100 Blood Urea Nitrogen 9 mg/dL 6-24 Creatinine 0.67 mg/dL 0.67-1.17 BUN/Creatinine Ratio 13.4 8-20 Calcium 9.1 mg/dL 8.6-10.3 Total Protein 6.7 g/dL 6.4-8.9 Albumin 4.2 g/dL 3.2-5.2 Globulin 2.5 g/dL 2-4 Albumin/Globulin Ratio 1.7 1-3 Total Bilirubin 0.30 mg/dL 0.2-1.0 Alkaline Phosphatase 67 U/L 34-104 Alt 17 U/L 7-52 Egfr Non- 143.4 >60 Egfr 184.4 >60 9 Potassium TNP mmol/L 3.5-5.0 10 Anion Gap TNP mmol/L 2-11 Ast TNP U/L 13-39 11 Urinalysis Profile 06/26/2016 Urine Color Yellow Urine Appearance Clear Urine Specific [place] 1.018 1.010-1.030 Urine pH 5.0 5-9 Urine Urobilinogen Negative Negative Urine Ketones Trace Negative Urine Protein Negative Negative Urine Leukocytes Negative Negative Urine Blood Negative Negative Urine Nitrite Negative Negative Urine Bilirubin Negative Negative Urine Glucose Negative Negative Laboratory test finding 06/26/2016 Magnesium 2.0 mg/dL 1.9-2.7 Lipase 38 U/L 11.0-82.0 C Reactive Protein < 1.00 mg/L < 5.00 12 Laboratory test finding 06/26/2016 Lactic Acid 0.7 mmol/L 0.5-2.0 13 Comp Metabolic Panel 06/26/2016 Sodium 137 mmol/L 133-145 Potassium 3.7 mmol/L 3.5-5.0 Chloride 104 mmol/L 101-111 Co2 Carbon Dioxide 26 mmol/L 22-32 Anion Gap 7 mmol/L 2-11 Glucose 79 mg/dL 70-100 Blood Urea Nitrogen 14 mg/dL 6-24 Creatinine 0.72 mg/dL 0.67-1.17 BUN/Creatinine Ratio 19.4 8-20 Calcium 9.2 mg/dL 8.6-10.3 Total Protein 6.7 g/dL 6.4-8.9 Albumin 4.4 g/dL 3.2-5.2 Globulin 2.3 g/dL 2-4 Albumin/Globulin Ratio 1.9 1-3 Total Bilirubin 0.40 mg/dL 0.2-1.0 Alkaline Phosphatase 61 U/L 34-104 Alt 17 U/L 7-52 Ast 12 U/L Low 13-39 Egfr Non- 132.0 >60 Egfr 169.7 >60 14 CBC Auto Diff 06/26/2016 White Blood Count 9.2 10^3/uL 3.5-10.8 Red Blood Count 4.63 10^6/uL 4.0-5.4 Hemoglobin 13.6 g/dL Low 14.0-18.0 Hematocrit 41 % Low 42-52 Mean Corpuscular Volume 88 fL 80-94 Mean Corpuscular Hemoglobin 29 pg 27-31 Mean Corpuscular HGB Conc 33 g/dL 31-36 Red Cell Distribution Width 13 % 10.5-15 Platelet Count 159 10^3/uL 150-450 Mean Platelet Volume 10 um3 7.4-10.4 Abs Neutrophils 5.1 10^3/uL 1.5-7.7 Abs Lymphocytes 2.9 10^3/uL 1.0-4.8 Abs Monocytes 0.8 10^3/uL 0-0.8 Abs Eosinophils 0.3 10^3/uL 0-0.6 Abs Basophils 0.1 10^3/uL 0-0.2 Abs Nucleated RBC 0 10^3/uL Granulocyte % 55.4 % 38-83 Lymphocyte % 31.8 % 25-47 Monocyte % 8.2 % 1-9 Eosinophil % 3.1 % 0-6 Basophil % 1.5 % 0-2 Nucleated Red Blood Cells % 0 CBC Auto Diff 02/07/2012 White Blood Count 8.1 10^3/uL 4.8-10.8 Red Blood Count 4.67 10^6/uL 4.0-5.4 Hemoglobin 14.6 g/dL 14.0-18.0 Hematocrit 43 % 42-52 Mean Corpuscular Volume 92 fL 80-94 Mean Corpuscular Hemoglobin 31 pg 27-31 Mean Corpuscular HGB Conc 34 g/dL 31-36 Red Cell Distribution Width 13 % 10.5-15 Platelet Count 162 10^3/uL 150-450 Mean Platelet Volume 10 um3 7.4-10.4 Abs Neutrophils 3.6 10^3/uL 1.5-7.7 Abs Lymphocytes 3.4 10^3/uL 1.0-4.8 Abs Monocytes 0.5 10^3/uL 0-0.8 Abs Eosinophils 0.5 10^3/uL 0-0.6 Abs Basophils 0 10^3/uL 0-0.2 Abs Nucleated RBC 0 10^3/uL Granulocyte % 44.6 % 38-83 Lymphocyte % 42.5 % 25-47 Monocyte % 6.6 % 1-9 Eosinophil % 5.8 % 0-6 Basophil % 0.5 % 0-2 Nucleated Red Blood Cells % 0 Iron & Iron Binding Capacity 01/29/2011 Iron Total 161 g/dL 45-182 Unsaturated Iron Binding 404 g/dL Total Iron Binding Capacity 565 g/dL High 250-450 % Iron Saturation 28 % 15-55 Laboratory test finding 01/29/2011 Ferritin 476 NG/ML High 24-336 Liver Function Panel 01/29/2011 Total Protein 8.5 GM/DL High 6.2-8.1 Albumin 4.9 GM/DL 3.6-5.4 Globulin 3.6 GM/DL 2-4 Albumin/Globulin Ratio 1.4 1-3 Bilirubin Total 1.9 mg/dL High 0.4-1.5 15 Bilirubin Direct 0.8 mg/dL High 0.1-0.5 Indirect Bilirubin 1.1 mg/dL High 0.3-1.0 16 Alkaline Phosphatase 141 U/L 50-176 Alt (SGPT) 2107 U/L High 17-63 Ast (Sgot) 1141 U/L High 12-42 Hepatitis B Surface AB 01/29/2011 Hepatitis B Surface AB Nonreactive Nonreactive Hbsab Index 0.19 17 Laboratory test finding 01/29/2011 CMV Igg <4 AU/mL <4 18 Hepatitis C Genotype 01/29/2011 Hepatitis C Amplification Positive Negative 19 Hepatitis C Genotype 1a () 20 Laboratory test finding 01/29/2011 Hepatitis A Antibody Total Negative Negative 21 Hepatitis A AB Igm Nonreactive Nonreactive Hepatitis B Surface Ag Nonreactive Nonreactive Hepatitis C Antibody High Reactive Nonreactive 22 Laboratory test finding 01/29/2011 Hepatitis C Rna Quant 303,000 IU/mL Undetected 23 Comp Metabolic Panel 01/21/2011 Sodium 138 mmol/L 135-145 Potassium 4.7 mmol/L 3.5-5.0 Chloride 104 mmol/L 101-111 Co2 (Carbon Dioxide) 25.0 mmol/L 22-32 Anion Gap 9.0 mmol/L 2-11 24 Glucose 83 mg/dL 70-100 BUN 16 mg/dL 6-24 Creatinine 0.9 mg/dL 0.50-1.40 One Over Creatinine 1.11 BUN/Creatinine Ratio 17.8 8-20 Calcium 9.5 mg/dL 8.1-9.9 Total Protein 7.0 GM/DL 6.2-8.1 Albumin 3.9 GM/DL 3.6-5.4 Globulin 3.1 GM/DL 2-4 Albumin/Globulin Ratio 1.3 1-3 Bilirubin Total 1.3 mg/dL 0.4-1.5 25 Alkaline Phosphatase 124 U/L 50-176 Alt (SGPT) 1177 U/L High 17-63 26 Ast (Sgot) 577 U/L High 12-42 eGFR Non- 106.5 > 60 eGFR 137.0 > 60 27 CBC Auto Diff 01/21/2011 White Blood Count 9.0 CUMM 4.8-10.8 Red Cell Count 4.87 CUMM 4.6-6.2 Hemoglobin 15.3 g/dL 14.0-18.0 Hematocrit 44 % 42-52 Mean Corpuscular Volume 91 um3 80-94 Mean Corpuscular Hemoglob 31 pg 27-31 Mean Corpuscular HGB Cone 35 g/dL 32-36 Redcell Distribution WDTH 14 % 10.5-15 Platelet Count 150 CUMM 150-450 Mean Platelet Volume 11.2 um3 High 7.4-10.4 28 Manual Differential 01/21/2011 Polysegmented Neutrophil 45 % 38-83 Band Neutrophil 7 % 0-8 Lymphocyte 33 % 25-47 Monocyte 9 % 0-13 Eosinophil 4 % 0-6 Atypical Lymph 2 % 0-6 Absolute Neutrophil Count 4.6 RBC Morphology NORMAL Comp Metabolic Panel 08/20/2010 Sodium 138 mmol/L 135-145 Potassium 3.8 mmol/L 3.5-5.0 Chloride 107 mmol/L 101-111 Co2 (Carbon Dioxide) 24.0 mmol/L 22-32 Anion Gap 7.0 mmol/L 2-11 29 Glucose 95 mg/dL 70-100 BUN 11 mg/dL 6-24 Creatinine 0.80 mg/dL 0.50-1.40 One Over Creatinine 1.20 BUN/Creatinine Ratio 13.8 8-20 Calcium 9.5 mg/dL 8.1-9.9 Total Protein 8.2 GM/DL High 6.2-8.1 Albumin 4.7 GM/DL 3.6-5.4 Globulin 3.5 GM/DL 2-4 Albumin/Globulin Ratio 1.3 1-3 Bilirubin Total 1.0 mg/dL 0.4-1.5 30 Alkaline Phosphatase 68 U/L 50-176 Alt (SGPT) 18 U/L 17-63 Ast (Sgot) 16 U/L 12-42 eGFR Non- 123.2 > 60 eGFR 158.5 > 60 31 Laboratory test finding 08/20/2010 Troponin-I 0 NG/ML 0-0.06 32 CBC Auto Diff 08/20/2010 White Blood Count 8.4 CUMM 4.8-10.8 Red Cell Count 5.03 CUMM 4.6-6.2 Hemoglobin 15.4 g/dL 14.0-18.0 Hematocrit 46 % 42-52 Mean Corpuscular Volume 92 um3 80-94 Mean Corpuscular Hemoglob 31 pg 27-31 Mean Corpuscular HGB Cone 33 g/dL 32-36 Redcell Distribution WDTH 14 % 10.5-15 Platelet Count 173 CUMM 150-450 Mean Platelet Volume 10.3 um3 7.4-10.4 Gran % 74.9 % 38-83 Lymph % 15.4 % Low 25-47 Mononuclear % 9.1 % High 1-9 Eosinophil % 0.3 % 0-6 Basophil % 0.3 % 0-2 Abs Lymphs 1.3 1.0-4.8 Abs Mononuclear 0.8 0-0.8 Absolute Neutrophil Count 6.3 1.5-7.7 Abs Eosinophils 0 0-0.6 Abs Basophils 0 0-0.2 33 Laboratory test finding 08/20/2010 CPK (Creatine Kinase) 80 U/L 0-200 Laboratory test finding 03/28/2010 Clotest NEGATIVE Drug Abuse 20 Urine 02/13/2010 Urine Alcohol Negative mg/dL Cutoff: 30 Urine Ampetamines Negative ng/mL () 34 Urine Barbiturates Negative ng/mL () 35 Urine Benzodiazepines Negative ng/mL () 36 Urine Cocaine Negative ng/mL () 37 Urine Methadone Negative ng/mL () 38 Urine Opiates Negative ng/mL () 39 Urine Phencyclidine Negative ng/mL Cutoff: 25 Urine Propoxyphene Negative ng/mL () 40 Urine Tetrahydrocannabinol Reflex* ng/mL Cutoff: 20 41 THC Confirmation,Urine 02/13/2010 Urine THC Screen Positive Cutoff: 20 THC Carboxylic Acid By GC/MS 47 ng/mL Cutoff: 3 Urine THC Interpretation Positive () 42 Laboratory test finding 11/03/2009 Acetaminophen < 10 g/mL Low 10-30 43 Alcohol < 10.0 mg/dL None Detected 44 Salicylate < 4.0 mg/dL Less Than 30 45 Comp Metabolic Panel 11/03/2009 Sodium 139 mmol/L 135-145 Potassium 3.4 mmol/L Low 3.5-5.0 Chloride 108 mmol/L 101-111 Co2 (Carbon Dioxide) 23.0 mmol/L 22-32 Anion Gap 8.0 mmol/L 2-11 46 Glucose 89 mg/dL 70-100 47 BUN 11 mg/dL 6-24 Creatinine 0.90 mg/dL 0.50-1.40 One Over Creatinine 1.10 BUN/Creatinine Ratio 12.2 8-20 Calcium 9.7 mg/dL 8.1-9.9 48 Total Protein 7.5 GM/DL 6.2-8.1 Albumin 4.6 GM/DL 3.6-5.4 Globulin 2.9 GM/DL 2-4 Albumin/Globulin Ratio 1.6 1-3 Bilirubin Total 0.7 mg/dL 0.4-1.5 49 Alkaline Phosphatase 69 U/L 50-176 Alt (SGPT) 33 U/L 17-63 Ast (Sgot) 18 U/L 12-42 eGFR Non- 115.5 > 60 eGFR 139.8 > 60 50 CBC With Electronic Diff 11/03/2009 White Blood Count 9.3 CUMM 4.8-10.8 Red Cell Count 5.20 CUMM 4.6-6.2 Hemoglobin 15.8 g/dL 14.0-18.0 Hematocrit 46 % 42-52 Mean Corpuscular Volume 88 um3 80-94 Mean Corpuscular Hemoglob 31 pg 27-31 Mean Corpuscular HGB Cone 35 g/dL 32-36 Redcell Distribution WDTH 13 % 10.5-15 Platelet Count 173 CUMM 150-450 Mean Platelet Volume 9.4 um3 7.4-10.4 Gran % 67.6 % 38-83 Lymph % 23.1 % Low 25-47 Mononuclear % 7.1 % 1-9 Eosinophil % 1.9 % 0-6 Basophil % 0.3 % 0-2 Abs Lymphs 2.2 1.0-4.8 Abs Mononuclear 0.7 0-0.8 Absolute Neutrophil Count 6.2 1.5-7.7 Abs Eosinophils 0.2 0-0.6 Abs Basophils 0 0-0.2 Urine Drug SCR ED 11/03/2009 Amphetamines Urine NONE DETECTED None Detect Pain Clinic Screen Barbituates Urine Screen NONE DETECTED None Detect Benzodiazepine Ur Screen NONE DETECTED None Detect Cannabinoid Urine Screen POSITIVE None Detect Cocaine Metabolites Urine NONE DETECTED None Detect Opiates Urine Screen NONE DETECTED None Detect PCP Urine Screen NONE DETECTED None Detect 51 Urinalysis 11/03/2009 Ua Color YELLOW Yellow Appearance-Urine CLEAR Clear Specific [place]-Ur 1.010 1.010-1.030 Esterase-Urine NEGATIVE Negative Nitrite NEGATIVE Negative Ctnkybwybzjs-Ry-PHY NEGATIVE Negative Protein-Urine NEGATIVE Negative PH-Urine 8.0 5-9 Blood-Urine NEGATIVE Negative Ketones-Urine NEGATIVE Negative Bilirubin-Ur NEGATIVE Negative Glucose-Urine NEGATIVE Negative Laboratory test finding 08/01/2009 Syphilis IgG NON-REACTIVE Nonreactive 52 Urinalysis W/Microscopic 08/01/2009 Ua Color YELLOW Yellow Appearance-Urine TURBID Clear Specific [place]-Ur 1.020 1.010-1.030 Esterase-Urine NEGATIVE Negative Nitrite NEGATIVE Negative Wjzcrqtiunub-Kv-MOT NEGATIVE Negative Protein-Urine NEGATIVE Negative PH-Urine 7.5 5-9 Blood-Urine NEGATIVE Negative Ketones-Urine NEGATIVE Negative Bilirubin-Ur NEGATIVE Negative Glucose-Urine NEGATIVE Negative WBC-Urine 0-5 0-5 RBC-Urine 0-5 0-2 Epith Cells-Ur RARE None Amorphous Sed-U 3+ None Urine GC/Chlamydia 07/27/2009 Chlamydia On Urine NEGATIVE Negative 53 GC On Urine NEGATIVE Negative 54 1 Metal Extrusion Supervisor: [id number] 2 HCV Genotype, S was cancelled on 05/19/2017 at 08:32; Genotyping not performed due to inability to generate sufficient target sequence for genotype analysis. Test Performed by: [facility] [place] [address] 3 Result in log IU/mL is Undetected. ADDITIONAL INFORMATION The quantification range of this assay is 15 to 100,000,000 IU/mL (1.18 log to 8.00 log IU/mL). Testing was performed using the ruy HCV test ([employer] with the ruy [email or web address] System. Test Performed by: [address] [id number] 4 Metal Extrusion Supervisor: [id number] Metal Extrusion Supervisor: [id number] 6 Acute inflammation: >10.00 7 [facility] Severe Sepsis and Septic Shock Management Bundle Measure requires all lactic acids initially measuring >2.0 mmol/L be repeated. 8 Because ethnic data is not always readily available, this report includes an eGFR for both -Americans and non- Americans. The National Kidney Disease Education Program (NKDEP) does not endorse the use of the MDRD equation for patients that are not between the ages of 18 and 70, are , have extremes of body size, muscle mass, or nutritional status, or are non- or non-. According to the National Kidney Foundation, irrespective of diagnosis, the stage of the disease is based on the level of kidney function: Stage Description GFR(mL/min/1.73 m(2)) 1 Kidney damage with normal or decreased GFR 90 2 Kidney damage with mild decrease in GFR 60-89 3 Moderate decrease in GFR 30-59 4 Severe decrease in GFR 15-29 5 Kidney failure <15 (or dialysis) 9 Because ethnic data is not always readily available, this report includes an eGFR for both -Americans and non- Americans. The National Kidney Disease Education Program (NKDEP) does not endorse the use of the MDRD equation for patients that are not between the ages of 18 and 70, are , have extremes of body size, muscle mass, or nutritional status, or are non- or non-. According to the National Kidney Foundation, irrespective of diagnosis, the stage of the disease is based on the level of kidney function: Stage Description GFR(mL/min/1.73 m(2)) 1 Kidney damage with normal or decreased GFR 90 2 Kidney damage with mild decrease in GFR 60-89 3 Moderate decrease in GFR 30-59 4 Severe decrease in GFR 15-29 5 Kidney failure <15 (or dialysis) 10 Cancelled. Specimen hemolyzed. Unable to perform test requested. Reorder for specimen recollection. ISAIAH was called for recollect at 2310 on 07/07/16 by [id number] 11 Cancelled. Specimen hemolyzed. Unable to perform test requested. Reorder for specimen recollection. ISAIAH was called for recollect at 2310 on 07/07/16 by [id number] 12 Acute inflammation: >10.00 13 [facility] Severe Sepsis and Septic Shock Management Bundle Measure requires all lactic acids initially measuring >2.0 mmol/L be repeated. 14 Because ethnic data is not always readily available, this report includes an eGFR for both -Americans and non- Americans. The National Kidney Disease Education Program (NKDEP) does not endorse the use of the MDRD equation for patients that are not between the ages of 18 and 70, are , have extremes of body size, muscle mass, or nutritional status, or are non- or non-. According to the National Kidney Foundation, irrespective of diagnosis, the stage of the disease is based on the level of kidney function: Stage Description GFR(mL/min/1.73 m(2)) 1 Kidney damage with normal or decreased GFR 90 2 Kidney damage with mild decrease in GFR 60-89 3 Moderate decrease in GFR 30-59 4 Severe decrease in GFR 15-29 5 Kidney failure <15 (or dialysis) 15 A metabolite of Naproxen, O-desmethylnaproxen, has been shown to interfere with the Jendrassik-Kair method for measuring total bilirubin. Samples from patients who have taken Naproxen have shown spurious elevation in total bilirubin levels. 16 Please note updated reference range, effective 10/19/09 17 The World Health Organization (WHO) Hepatitis B Immunoglobulin 1st International Reference Preparation (1976): The accepted criteria for immunity to HBV is anti-HBs activity greater than or equal to 10 mIU/mL. An Index Value of 1.00 is equivalent to 10 mIU/mL. Samples with an Index Value of 1.00 or greater are considered reactive (protective) in accordance with the CDC guidelines. 18 Test Performed by: [facility] Dpt of Lab Med and Pathology [address] [place] [address] Box Car Checker: Humberto Lopez III, M.D. 19 REPORTABLE DISEASE Genotype to follow Research Use Only - Hepatitis C Genotyping Test Performed by: [facility] Dpt of Lab Med and Pathology [address] [place] [address] Box Car Checker: Humberto Lopez III, M.D. 20 -- REFERENCE VALUE -- Not applicable Testing was done by DNA sequencing assay using the Airseed HCV 5'NC Genotyping Kit. Research Use Only - Hepatitis C Genotyping Test Performed by: [facility] Dpt of Lab Med and Pathology [address] [place] [address] Box Car Checker: Humberto Lopez III, M.D. 21 Test Performed by: [facility] Dpt of Lab Med and Pathology [address] [place] [address] Box Car Checker: Humberto Lopez III, M.D. 22 High reactive sample are considered positive for HCV. 23 Result in log IU/mL=5.48 Quantification range of this assay is 43 IU/mL to 69,000,000 IU/mL (1.63 to 7.84 log IU/mL). Testing was performed by the RUY AmpliPrep/RUY TaqMan HCV Test ([employer] Test Performed by: [facility] Dpt of Lab Med and Pathology [address] [place] [address] Box Car Checker: Humberto Lopez III, M.D. 24 Anion gap measurement may be of limited value in the presence of any alkalosis, especially in a combined acid base disorder. . 25 A metabolite of Naproxen, O-desmethylnaproxen, has been shown to interfere with the Jendrassik-Kari method for measuring total bilirubin. Samples from patients who have taken Naproxen have shown spurious elevation in total bilirubin levels. 26 RESULTS CONFIRMED BY REPEAT ANALYSIS. REPEATED RESULT WAS 1176. 27 Because ethnic data is not always readily available, this report includes an eGFR for both -Americans and non- Americans. The National Kidney Disease Education Program (NKDEP) does not endorse the use of the MDRD equation for patients that are not between the ages of 18 and 70, are , have extremes of body size, muscle mass, or nutritional status, or are non- or non-. According to the National Kidney Foundation, irrespective of diagnosis, the stage of the disease is based on the level of kidney function: Stage Description GFR(mL/min/1.73 m(2)) 1 Kidney damage with normal or decreased GFR 90 2 Kidney damage with mild decrease in GFR 60-89 3 Moderate decrease in GFR 30-59 4 Severe decrease in GFR 15-29 5 Kidney failure <15 (or dialysis) 28 Imm. NE 1 29 Anion gap measurement may be of limited value in the presence of any alkalosis, especially in a combined acid base disorder. . 30 A metabolite of Naproxen, O-desmethylnaproxen, has been shown to interfere with the Jendrassik-[place] method for measuring total bilirubin. Samples from patients who have taken Naproxen have shown spurious elevation in total bilirubin levels. 31 Because ethnic data is not always readily available, this report includes an eGFR for both -Americans and non- Americans. The National Kidney Disease Education Program (NKDEP) does not endorse the use of the MDRD equation for patients that are not between the ages of 18 and 70, are , have extremes of body size, muscle mass, or nutritional status, or are non- or non-. According to the National Kidney Foundation, irrespective of diagnosis, the stage of the disease is based on the level of kidney function: Stage Description GFR(mL/min/1.73 m(2)) 1 Kidney damage with normal or decreased GFR 90 2 Kidney damage with mild decrease in GFR 60-89 3 Moderate decrease in GFR 30-59 4 Severe decrease in GFR 15-29 5 Kidney failure <15 (or dialysis) 32 New Reference Range and Interpretation effective 01/01/2002 TnI (ng/ml) INTERPRETATION Less Than 0.06 ng/mL NOT SUPPORTIVE OF DIAGNOSIS OF SD 0.06 - 0.50 ng/ml INDETERMINATE: SUGGEST SERIAL STUDIES IF CLINICALLY INDICATED. Greater than 0.5 ng/mL CONSISTENT WITH DIAGNOSIS OF SD . 33 Lymphopenia % 34 -- REFERENCE VALUE -- Cutoff: 500 35 -- REFERENCE VALUE -- Cutoff: 200 36 -- REFERENCE VALUE -- Cutoff: 200 37 -- REFERENCE VALUE -- Cutoff: 300 38 -- REFERENCE VALUE -- Cutoff: 300 39 -- REFERENCE VALUE -- Cutoff: 300 40 -- REFERENCE VALUE -- Cutoff: 300 41 *Drug confirmation ordered by reflex. Refer to confirmation result to follow for the definitive result. This report is intended for use in clinical monitoring or management of patients. It is not intended for use in employment-related testing. Test Performed by: [facility] Dpt of Lab Med and Pathology [address] [place] [address] Box Car Checker: Humberto Lopez III, M.D. 42 This report is intended for use in clinical monitoring and management of patients. It is not intended for use in employment-related drug testing. Test Performed by: [facility] Dpt of Lab Med and Pathology [address] [place] [address] Box Car Checker: Humberto Lopez III, M.D. 43 TOXIC LEVELS: GREATER THAN 150 MCG/ML @ 4HR POST INGEST GREATER THAN 50 MCG/ML @ 12HR POST INGEST The detection limit for ACETAMINOPHEN is 10.0 mcg/ml . Values less than 10.0 mcg/ml cannot be accurately measured. . 44 The detection limit for ETHANOL is 10.0 mg/dl . Values less than 10.0 mg/dl cannot be accurately measured. . 45 The detection limit for SALICYLATE is 4.0 mg/dl. Values less than 4.0 mg/dl cannot be accurately measured. . 46 Anion gap measurement may be of limited value in the presence of any alkalosis, especially in a combined acid base disorder. . 47 Note change in reference range as of 11/19/07. The change was based on recommendations from the [place] [employer]. 48 Please note change in reference range effective 07 . 49 A metabolite of Naproxen, O-desmethylnaproxen, has been shown to interfere with the Jendrassik-Kari method for measuring total bilirubin. Samples from patients who have taken Naproxen have shown spurious elevation in total bilirubin levels. 50 Because ethnic data is not always readily available, this report includes an eGFR for both -Americans and non- Americans. The National Kidney Disease Education Program (NKDEP) does not endorse the use of the MDRD equation for patients that are not between the ages of 18 and 70, are , have extremes of body size, muscle mass, or nutritional status, or are non- or non-. According to the National Kidney Foundation, irrespective of diagnosis, the stage of the disease is based on the level of kidney function: Stage Description GFR(mL/min/1.73 m(2)) 1 Kidney damage with normal or decreased GFR 90 2 Kidney damage with mild decrease in GFR 60-89 3 Moderate decrease in GFR 30-59 4 Severe decrease in GFR 15-29 5 Kidney failure <15 (or dialysis) 51 THE URINE SPECIMEN WAS TESTED AT THE LISTED CUTOFFS: DRUG CLASS TEST LEVEL (NG/ML) AMPHETAMINES 300 BARBITUATES 200 BENZODIAZEPINE METABOLITES 200 COCAINE METABOLITES 300 CANNABINOIDS 25 OPIATES 200 PCP 25 THIS IS A SCREENING PROCEDURE. POSITIVE RESULTS ARE NOT CONFIRMED. SPECIMEN WAS RECEIVED WITHOUT CHAIN OF CUSTODY. RESULTS SHOULD BE USED FOR MEDICAL PURPOSES ONLY. . 52 Warning: A positive result is not useful for establishing a diagnosis of syphilis. In most situations, such a result may reflect a prior treated infection; a negative result can exclude a diagnosis of syphilis except for incubating or early primary disease. 53 . A negative result does not preclude the presence of a C.trachomatis or N.gonorrhoeae infection because results are dependent on adequate specimen collection, absence of inhibitors, and sufficient rRNA to be detected. Test results may be affected by improper specimen collection, improper specimen storage, technical error, or specimen mixup. . 54 . A negative result does not preclude the presence of a C.trachomatis or N.gonorrhoeae infection because results are dependent on adequate specimen collection, absence of inhibitors, and sufficient rRNA to be detected. Test results may be affected by improper specimen collection, improper specimen storage, technical error, or specimen mixup. . 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 B19.20 Office Visit 06/20/2016 3:15p [facility] [place] [address] R10.812 [facility] Office Visit 06/17/2016 10:00a [facility] [place] [address] R10.812 Physical Therapy Instructor R59.0 K56.1 Office Visit 06/10/2016 7:00a [facility], [address] K56.1 Of Physical Therapy Instructor MD Office Visit 02/05/2011 10:00a DO Not Use Physical Therapy Instructor AT [facility], 75129 070.51 Harwoodradha Emerson,FACP V05.3 Office Visit 01/29/2011 9:40a DO Not Use Physical Therapy Instructor AT [facility], 79496 573.3 Harwoodradha Emerson,FACP v04.81 305.53 Office Visit 03/22/2010 8:40a DO Not Use Physical Therapy Instructor AT [facility], 298[address] 786.59 Harwoodradha Emerson,FACP 536.2 078.12 Office Visit 02/19/2010 12:00p DO Not Use Physical Therapy Instructor AT [facility], [address] 789.09 Say Emerson,FACP 305.53 V04.81 Office Visit 02/13/2010 2:20p DO Not Use Physical Therapy Instructor AT [facility], [address] 789.09 Say Emerson 783.21 786.50 304.00 Office Visit 11/28/2009 3:40p DO Not Use Physical Therapy Instructor AT Frankiecherelle Hunt M.D. 25444 784.0 [facility] 783.21 Office Visit 08/01/2009 1:20p DO Not Use Physical Therapy Instructor AT [facility], 25563 724.2 Say Emerson Office Visit 07/03/2009 2:00p DO Not Use Physical Therapy Instructor AT [facility], 77461 724.2 Say Emerson Office Visit 01/04/2009 3:00p DO Not Use Physical Therapy Instructor AT [facility], 30[address] 465.9 Harwoodradha Emerson 466.0 Plan of Care 10/07/2017 - Jesus Mojica M.D.J20.9 Acute bronchitis, unspecifiedNew Medication:Cetirizine HCL 10 mgComments:Continued cough, ? wheezing sx Rx'd with Z-pack, Albuterol at [facility]. (+) past hx allergies as achild, but no hx asthma. Continue Rx as prescirbed; Albuterol refilled and Rx fot Zyrtec sent in. Smoking cessation advised and recheck once bronchitis sx resolve suggested for further allergy/asthmatesting
[2017-11-06 11:33] VITALS: BP 135/79
--- NOTE | 2017-11-06 11:43 | UC ---
Complaint Male HPI - HPI Summary HPI Summary: This is brooke Harris Blake documenting for attending Flako Cerda MD. This patient is a 26 year old M [place] [facility] [place] a chief complaint of left sided groin pain that began yesterday but which was worse this morning. The patient rates the pain 4/10 in severity. Symptoms aggravated by walking. Patient reports left testicle pain. Patient denies urinary sx, fever, and chills. Pt has had diarrhea for a month after taking abx for bronchitis. Pt ejaculated which did not help. Pt has a titanium brent in the left hip which was placed in 2012, he originally thought this was causing the pain because sometimes this becomes sore. - History of Current Complaint Chief Complaint: UCGU Stated Complaint: TESTICULAR PAIN Hx Obtained From: Patient Onset/Duration: Lasting Days - 1, Still Present Timing: Constant Severity Initially: Moderate Severity Currently: Moderate Pain Intensity: 4 Pain Scale Used: 0-10 Numeric Location: Testicle - l Aggravating Factor(s): Other - walking Associated Signs And Symptoms: Positive: Negative - urinary sx, fever, ABD pain , and chills. - Allergies/Home Medications Allergies/Adverse Reactions: Allergies Allergy/AdvReac Type Severity Reaction Status Date / Time fluticasone [From Flonase] Allergy Vomiting Verified 11/06/17 11:22 ketorolac [From Toradol] Allergy muscle Verified 11/06/17 11:22 spasms mold Allergy Congestion Verified 11/06/17 11:22 Penicillins Allergy Vomiting Verified 11/06/17 11:22 prednisone Allergy Vomiting Verified 11/06/17 11:22 tetanus and diphtheria Allergy Vomiting Verified 11/06/17 11:22 toxoids white vinegar Allergy Rash Uncoded 11/06/17 11:22 PMH/Surg Hx/FS Hx/Imm Hx Respiratory History: COPD Neurological History: Other Other Neurological History: chronic neck pain Other History Of: Hepatitis C Negative For: Anticoagulant Therapy - Surgical History Surgical History: Yes Surgery Procedure, Year, and Place: 2012 orif right wrist/left jaw orif/orif left femur-knee cap - Family History Known Family History: Positive: Cardiac Disease, Hypertension, Diabetes, Other - thyroid disease - Social History Alcohol Use: None Substance Use Type: 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 Smoking Status (MU): Heavy Every Day Tobacco Smoker Type: Cigarettes, eCigarettes Amount Used/How Often: 1/2 PPD Length of Time of Smoking/Using Tobacco: 14 years Have You Smoked in the Last Year: No Household Exposure Type: Cigarettes - Immunization History Most Recent Influenza Vaccination: never Most Recent Tetanus Shot: no, allergic Review of Systems Constitutional: Negative - fever and chills Genitourinary: Other - L testicle and groin pain All Other Systems Reviewed And Are Negative: Yes Physical Exam - Summary Physical Exam Summary: General: well-appearing, no pain distress Skin: warm, color reflects adequate perfusion, dry Head: normal Eyes: EOMI, KALE ENT: normal Neck: supple, nontender Respiratory: CTA, breath sounds present Cardiovascular: RRR Abdomen: soft, nontender Bowel: present Musculoskeletal: normal, strength/ROM intact Neurological: sensory/motor intact, A&O x3 Psychological: affect/mood appropriate : Mildly TTP left inguinal canal, Testicles are not swollen, left testicle is mildly TTP, no erythema, No rash, no urethral discharge Triage Information Reviewed: Yes Vital Signs: Initial Vital Signs Temp 98.5 F 11/06/17 11:23 Pulse 95 11/06/17 11:23 Resp 18 11/06/17 11:23 BP 135/79 11/06/17 11:23 Pulse Ox 99 11/06/17 11:23 Vital Signs Reviewed: Yes Diagnostics - Radiology US testicle Radiology Interpretation Completed By: Radiologist - Small left hydrocele. Otherwise unremarkable scrotal ultrasound. No evidence of torsion. Dr. Cerda has reviewed this report. Hip xray Radiology Interpretation Completed By: Radiologist - Negative radiographic exam of the LEFT hip. Dr. Cerda has reviewed this report. Complaint Male Course/Dx - Course Course Of Treatment: ABD NT ON EXAM. MINIMAL LEFT SCROTAL/TESTICULR TENDERNESS ON EXAM. NORMAL AXIS BOTH TESTICLES. NO SWELLING APPRECIATED ON EXAM. DISCUSSED RESULTS WITH THE PATIENT. THE PLAN IS SUPPORTIVE UNDERWEAR, ICE AND NSAIDS AND F/U WITH UROLOGY. I DISCUSSED THE S/SX OF TESTICULAR TORSION AND GOING DIRECTLY TO THE EMERGENCY DEPARTMENT FOR WORSENING OF HIS PAIN OR SWELLING. - Differential Dx/Diagnosis Provider Diagnoses: LEFT SCROTAL/TESTICULAR PAIN. LEFT HYDROCELE. Discharge - Sign-Out/Discharge Documenting (check all that apply): Patient Departure - Discharge Plan Condition: Stable Disposition: HOME Prescriptions: Ibuprofen TAB* [Motrin TAB* 600 MG] 600 mg PO Q6H PRN #30 tab PRN Reason: Pain Patient Education Materials: Hydrocele (ED), Testicle Pain (ED), Scrotal Pain ( ED) Forms: *Work Release Referrals: Cheng Terrazas MD [Primary Care Provider] - David Chen MD [Medical Doctor] - Brady Thompson MD [Medical Doctor] - Additional Instructions: FOLLOW UP WITH UROLOGY. GET RECHECKED FOR ANY WORSENING OF YOUR CONDITION; PAIN, TESTICULAR SWELLING OR QUESTIONS OR CONCERNS. - Billing Disposition and Condition Condition: STABLE Disposition: Home
--- NOTE | 2017-11-06 12:44 | RAD ---
Indication: Left scrotal and inguinal pain. Real-time sonography of the scrotum was performed. The right testis measures 4.4 x 3.3 cm no intratesticular masses. Normal flow is noted in the right testis. The epididymis measures 1.0 x 1.0 cm. No hydrocele is noted. The left testis measures 4.5 x 2.2 x 3.4 cm. No intratesticular masses are noted. Normal flow is noted in the left testis. The left epididymis measures 1.0 x 1.1 cm. A small left hydrocele is noted. IMPRESSION: Small left hydrocele. Otherwise unremarkable scrotal ultrasound. No evidence of torsion.
--- NOTE | 2017-11-06 12:48 | RAD ---
Indication: 1 day progressively worsening LEFT inguinal and hip pain without proceeding injury. Previous femur IM rodding. Comparison: June 10, 2016 CT. Technique: AP pelvis and AP and frog-leg lateral views LEFT hip. Report: Visualized proximal segment of the LEFT femur intramedullary brent and proximal locking screw appear intact. No evidence for loosening of the internal fixation hardware. Normally located LEFT hip with preserved joint space. No fracture or stress reaction evident at the LEFT hip or pelvis. Unremarkable sacroiliac joints and pubic symphysis. Unremarkable soft tissue contours. IMPRESSION: #. Negative radiographic exam of the LEFT hip.
== END 2017-11-06 13:07 | disposition home or self-care (01) ==
LOC: UCEAST 11:12
DX: N50.82 Scrotal pain (principal); N50.819 Testicular pain, unspecified; N43.3 Hydrocele, unspecified; Z88.6 Allergy status to analgesic agent; Z88.8 Allergy status to other drugs, medicaments and biological substances; Z88.0 Allergy status to penicillin; F17.290 Nicotine dependence, other tobacco product, uncomplicated
CPT/HCPCS: 76870; 81003; 99212; G0463

== ENCOUNTER 2017-11-27 12:17 | Emergency (ER) | payer OTHER ==
[2017-11-27 12:37] VITALS: BP 138/102
--- NOTE | 2017-11-27 12:45 | UC ---
Skin Complaint HPI - HPI Summary HPI Summary: Patient is a 26 y/o male who presents [place] [facility] [place]/o rash. He states the rash began 2 days ago after riding his bike in the sun all day. The rash is on the palmar aspect of both wrists and on the top of both feet, and is now moving up his arms. Patient c/o itching and pain. Patient has had heat blisters in the past, and states that normally they do not itch. He denies any rash between his toes. Patient has been taking Benadryl for the itching. - History of Current Complaint Time Seen by Provider: 11/27/17 12:26 Stated Complaint: RASH Hx Obtained From: Patient Onset/Duration: Gradual Onset, Lasting Days - 2, Worse Since Timing: Constant Current Severity: None Pain Intensity: 0 Pain Scale Used: 0-10 Numeric Location: Hand (Right), Hand (Left), Foot (Right), Foot (Left) Character: Pruritus, Pain Aggravating Factor(s): Nothing Alleviating Factor(s): OTC Meds - Benadryl Related History: Other: - Sun exposure - Allergy/Home Medications Allergies/Adverse Reactions: Allergies Allergy/AdvReac Type Severity Reaction Status Date / Time fluticasone [From Flonase] Allergy Vomiting Verified 11/27/17 12:26 ketorolac [From Toradol] Allergy muscle Verified 11/27/17 12:26 spasms mold Allergy Congestion Verified 11/27/17 12:26 Penicillins Allergy Vomiting Verified 11/27/17 12:26 prednisone Allergy Vomiting Verified 11/27/17 12:26 tetanus and diphtheria Allergy Vomiting Verified 11/27/17 12:26 toxoids white vinegar Allergy Rash Uncoded 11/27/17 12:26 Home Medications: Home Medications Loratadine [Claritin] 10 mg PO DAILY 11/27/17 [History Confirmed 11/27/17] diphenhydrAMINE HCl [Benadryl Allergy] 50 mg PO BEDTIME PRN 11/27/17 [History Confirmed 11/27/17] Review of Systems Constitutional: Negative - Fever Skin: Rash - Wrists and feet All Other Systems Reviewed And Are Negative: Yes PMH/Surg Hx/FS Hx/Imm Hx Respiratory History: COPD Neurological History: Other Other Neurological History: Neck pain Other History Of: Hepatitis C Negative For: Anticoagulant Therapy - Surgical History Surgical History: Yes Surgery Procedure, Year, and Place: 2012 orif right wrist/left jaw orif/orif left femur-knee cap - Family History Known Family History: Positive: Cardiac Disease, Hypertension, Diabetes, Other - thyroid disease - Social History Alcohol Use: None Substance Use Type: 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 Smoking Status (MU): Heavy Every Day Tobacco Smoker Type: Cigarettes, eCigarettes Amount Used/How Often: 1/4 ppd Length of Time of Smoking/Using Tobacco: 14 years Have You Smoked in the Last Year: No Household Exposure Type: Cigarettes - Immunization History Most Recent Influenza Vaccination: never Most Recent Tetanus Shot: no, allergic Physical Exam - Summary Physical Exam Summary: General: well-appearing, no pain distress Skin: warm, color reflects adequate perfusion, punctate raised erythematous areas on dorsum of feet and palmar aspect of both wrists, no drainage Head: normal Eyes: EOMI, KALE ENT: normal Neck: supple, nontender Respiratory: CTA, breath sounds present Cardiovascular: RRR Abdomen: soft, nontender Bowel: present Musculoskeletal: normal, strength/ROM intact Neurological: sensory/motor intact, A&O x3 Psychological: affect/mood appropriate Triage Information Reviewed: Yes Vital Signs: Initial Vital Signs Temp 98.9 F 11/27/17 12:29 Pulse 100 11/27/17 12:29 Resp 16 11/27/17 12:29 BP 138/102 11/27/17 12:29 Pulse Ox 99 11/27/17 12:29 Vital Signs Reviewed: Yes Course/Dx - Course Course Of Treatment: DUE TO THE DISTRIBUTION OF RASH ON FEET AND HANDS AND BEING BAREFOOT OUTSIDE; PROBABLE CONTACT DERMATITIS. DUE TO DISTRIBUTION ON FEET ; TINEA POSSIBLE. F/U PMD; RECHECK SOONER IF WORSE. - Diagnoses Provider Diagnoses: RASH ON B/L WRISTS AND FEET Discharge - Sign-Out/Discharge Documenting (check all that apply): Patient Departure - Discharge All imaging exams completed and their final reports reviewed: No Studies - Discharge Plan Condition: Stable Disposition: HOME Prescriptions: methylPREDNISolone [Medrol Dosepak 4 MG*] 4 mg PO .SEE MONICO INSTRUCTION #1 monico Miconazole TOPICAL CREAM 2%* [Monistat 2%*] 1 applic TOPICAL BID #1 tube Patient Education Materials: Acute Rash (ED) Referrals: Cheng Terrazas MD [Primary Care Provider] - Additional Instructions: FOLLOW UP WITH YOUR DOCTOR IF NOT COMPLETELY IMPROVED. GET RECHECKED FOR ANY WORSENING OF YOUR CONDITION OR QUESTIONS OR CONCERNS. - Billing Disposition and Condition Condition: STABLE Disposition: Home - Attestation Statements Document Initiated by Ayane: Yes Documenting Scribe: Talita Rosales Provider For Whom Scribe is Documenting (Include Credential): Flako Cerda MD Scribe Attestation: I, Talita Rosales, scribed for Flako Cerda MD on 11/27/17 at 1247. Scribe Documentation Reviewed: Yes Provider Attestation: The documentation as recorded by the Talita cox accurately reflects the service I personally performed and the decisions made by me, Flako Cerda MD
== END 2017-11-27 12:44 | disposition home or self-care (01) ==
LOC: UCEAST 12:17
DX: R21 Rash and other nonspecific skin eruption (principal); J44.9 Chronic obstructive pulmonary disease, unspecified; F17.210 Nicotine dependence, cigarettes, uncomplicated; Z88.0 Allergy status to penicillin; Z88.8 Allergy status to other drugs, medicaments and biological substances; Z91.09 Other allergy status, other than to drugs and biological substances; Z88.5 Allergy status to narcotic agent; Z91.041 Radiographic dye allergy status; Z91.018 Allergy to other foods
CPT/HCPCS: 99212; G0463

== ENCOUNTER 2018-01-01 12:02 | Emergency (ER) | payer OTHER ==
[2018-01-01] MEDS ORDERED: Dexamethasone IV* 4 MG/ML 1 ML (4 MG) IM ONE (13:04)
[2018-01-01] MEDS ORDERED: Orphenadrine Citrate IV* 30 MG/ML 2 ML VIAL IM ONE (13:04)
--- NOTE | 2018-01-01 13:05 | ED ---
Back Pain - HPI Summary HPI Summary: This pt is a 27 y/o male presenting to [facility] c/o lower back pain since yesterday s/p injury. Pt reports yesterday he was helping move furniture, couch , over a railing when it flipped over and struck him on his back. Pt is unsure if he pulled a muscle or he injured his back. His back pain is aggravated with movement and alleviated with rest. Denies urinary or bowel dysfunction, weakness , numbness, or tingling in LE. - History of Current Complaint Chief Complaint: EDBackInjuryPain Stated Complaint: LOWER CBACK PAIN Time Seen by Provider: 01/01/18 12:55 Hx Obtained From: Patient Onset/Duration: Sudden Onset, Lasting Days - 1, Still Present Onset/Duration: Started Days Ago - 1, Traumatic, Still Present Timing: Lasting Days - 1 Back Pain Location: Is Discrete @ - lower back Severity Currently: Severe Pain Intensity: 8 Pain Scale Used: 0-10 Numeric Aggravating Symptom(s): Movement Alleviating Symptom(s): Rest Associated Signs And Symptoms: Negative: Swelling, Redness, Bruising, Fever, Weakness, Numbness, Tingling, Abdominal Pain, Bladder Incontinence, Bowel Incontinence - Allergies/Home Medications Allergies/Adverse Reactions: Allergies Allergy/AdvReac Type Severity Reaction Status Date / Time fluticasone [From Flonase] Allergy Vomiting Verified 01/01/18 12:14 ketorolac [From Toradol] Allergy muscle Verified 01/01/18 12:14 spasms mold Allergy Congestion Verified 01/01/18 12:14 Penicillins Allergy Vomiting Verified 01/01/18 12:14 prednisone Allergy Vomiting Verified 01/01/18 12:14 tetanus and diphtheria Allergy Vomiting Verified 01/01/18 12:14 toxoids white vinegar Allergy Rash Uncoded 11/27/17 12:26 Home Medications: Home Medications LoraTADine TAB(NF) [Claritin 10 MG TAB(NF)] 10 mg PO DAILY 01/01/18 [History Confirmed 01/01/18] PMH/Surg Hx/FS Hx/Imm Hx Endocrine/Hematology History: Denies: Hx Anticoagulant Therapy, Hx Diabetes, Hx Thyroid Disease, Other Endocrine/Hematological Disorders Cardiovascular History: Reports: Other Cardiovascular Problems/Disorders - FLUTTERS Denies: Hx Hypertension, Hx Pacemaker/ICD Respiratory History: Reports: Hx Chronic Bronchitis, Hx Chronic Obstructive Pulmonary Disease (COPD) Denies: Hx Asthma, Other Respiratory Problems/Disorders GI History: Reports: Hx Gastroesophageal Reflux Disease, Hx Hiatal Hernia, Other GI Disorders - hiatal hernia Denies: Hx Ulcer History: Denies: Hx Dialysis, Hx Renal Disease, Other Problems/Disorders Musculoskeletal History: Reports: Hx Orthopedic Injury - Right wrist dislocation ; Fractured left forearm; Left Patella Fx; Fx Femur;, Other Musculoskeletal History - see above Sensory History: Denies: Other Sensory Impairments Opthamlomology History: Denies: Other Sensory Impairments Neurological History: Reports: Hx Migraine, Other Neuro Impairments/Disorders - BACK INJURY 2007- MUSCLES Denies: Hx Dementia, Hx Seizures Psychiatric History: Reports: Hx Anxiety, Hx Depression, Hx Bipolar Disorder, Hx Substance Abuse - synthetic drugs 1 yr ago Denies: Hx Eating Disorder, Hx of Violent Episodes Against Others, Other Psychiatric Issues/Disorders - Surgical History Surgery Procedure, Year, and Place: 2012 orif right wrist/left jaw orif/orif left femur-knee cap - Immunization History Date of Tetanus Vaccine: Up to date Date of Influenza Vaccine: None Infectious Disease History: No Infectious Disease History: Denies: Hx Clostridium Difficile, Hx Hepatitis, Hx Human Immunodeficiency Virus (HIV), Hx of Known/Suspected MRSA - has had staph on his face, Hx Shingles , Hx Tuberculosis, Hx Known/Suspected VRE, Hx Known/Suspected VRSA, History Other Infectious Disease, Traveled Outside the [place] in Last 30 Days - Family History Known Family History: Positive: Cardiac Disease, Hypertension, Diabetes, Other - thyroid disease - Social History Alcohol Use: None Hx Substance Use: Yes Substance Use Type: Reports: 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 Hx Tobacco Use: Yes Smoking Status (MU): Heavy Every Day Tobacco Smoker Type: Cigarettes, eCigarettes Amount Used/How Often: 1/4 ppd Length of Time of Smoking/Using Tobacco: 14 years Have You Smoked in the Last Year: No Review of Systems Negative: Fever, Chills Negative: Chest Pain Negative: Shortness Of Breath Negative: incontinence Musculoskeletal: Other - back pain Negative: Weakness, Paresthesia, Numbness All Other Systems Reviewed And Are Negative: Yes Physical Exam - Summary Physical Exam Summary: VITAL SIGNS: Reviewed. GENERAL: Patient is a well-developed and nourished male who is lying comfortable in the stretcher. Patient is not in any acute respiratory distress. HEAD AND FACE: No signs of trauma. No ecchymosis, hematomas or skull depressions. No sinus tenderness. EYES: PERRLA, EOMI x 2, No injected conjunctiva, no nystagmus. EARS: Hearing grossly intact. Ear canals and tympanic membranes are within normal limits. MOUTH: Oropharynx within normal limits. NECK: Supple, trachea is midline, no adenopathy, no JVD, no carotid bruit, no c- spine tenderness, neck with full ROM. CHEST: Symmetric, no tenderness at palpation LUNGS: Clear to auscultation bilaterally. No wheezing or crackles. CVS: Regular rate and rhythm, S1 and S2 present, no murmurs or gallops appreciated. ABDOMEN: Soft, non-tender. No signs of distention. No rebound, no guarding, and no masses palpated. Bowel sounds are normal. MSK: FROM in all major joints, no edema, no cyanosis or clubbing. Pt is able to move and sit down. Straight leg raise is negative. No urinary or bowel dysfunction. NEURO: Alert and oriented x 3. No acute neurological deficits. Speech is normal and follows commands. SKIN: Dry and warm Triage Information Reviewed: Yes Vital Signs On Initial Exam: Initial Vitals Temp Pulse Resp BP Pulse Ox 98.2 F 90 16 137/74 100 01/01/18 12:10 01/01/18 12:10 01/01/18 12:10 01/01/18 12:10 01/01/18 12:10 Vital Signs Reviewed: Yes Diagnostics - Vital Signs Vital Signs Temp Pulse Resp BP Pulse Ox 01/01/18 12:10 98.2 F 90 16 137/74 100 - Laboratory Lab Statement: Any lab studies that have been ordered have been reviewed, and results considered in the medical decision making process. - Radiology Lumbar spine XR Xray Interpretation: No Acute Changes - IMPRESSION: Minimal degenerative disc disease. Dr. España has reviewed this report. Radiology Interpretation Completed By: Radiologist Re-Evaluation - Re-Evaluation First Eval Re-Evaluation Time: 14:16 Comment: I reviewed XR results with pt. He will be discharged home. Back Pain Course/Dx - Course Assessment/Plan: This pt is a 27 y/o male presenting to [facility] c/o lower back pain since yesterday s/p injury. Pt reports yesterday he was helping move furniture, couch, over a railing when it flipped over and struck him on his back. Pt is unsure if he pulled a muscle or he injured his back. His back pain is aggravated with movement and alleviated with rest. Denies urinary or bowel dysfunction, weakness, numbness, or tingling in LE. Lumbar spine XR impression : Minimal degenerative disc disease. In the ED course the patient was given Decadron and Norflex. At this point the patient symptoms have improved. Patient will be discharged home with follow-up from primary care physician. The patient is ambulating out of the emergency room with a good steady walk. I offered the patient a rectal exam and he declined. The patient doesnt have any neurological deficits, and his symptoms have improved. Patient will be given a prescription for Flexeril, Medrol Dosepak, Ibuprofen. He reports that he cannot take Toradol however he can take ibuprofen. Patient is hemodynamically stable alert and oriented x3. - Diagnoses Differential Diagnosis/HQI/PQRI: Positive: Arthritis, Cauda Equina Syndrome, Epidural Abscess, Fracture, Herniated Disc, Strain, Sprain Provider Diagnoses: Back pain Discharge - Sign-Out/Discharge Documenting (check all that apply): Patient Departure - Discharge home - Discharge Plan Condition: Stable Disposition: HOME Prescriptions: Cyclobenzaprine TAB* [Flexeril 10 MG TAB*] 10 mg PO Q8HR PRN #12 tab PRN Reason: Spasms Ibuprofen TAB* [Motrin TAB* 600 MG] 600 mg PO Q6H PRN #30 tab PRN Reason: Pain methylPREDNISolone [Medrol Dosepak 4 MG*] 4 mg PO .SEE MONICO INSTRUCTION #1 monico Patient Education Materials: Back Pain (ED) Referrals: Cheng Terrazas MD [Primary Care Provider] - Additional Instructions: FOLLOW UP WITH YOUR PRIMARY CARE PROVIDER WITHIN ONE WEEK FOR HIGH BLOOD PRESSURE NOTED TODAY. RETURN TO THE ED FOR ANY NEW OR WORSENING SYMPTOMS. - Attestation Statements Document Initiated by Scribe: Yes Documenting Scribe: Nat Hobson Provider For Whom Scribe is Documenting (Include Credential): Jesus España MD Scribe Attestation: Nat Brewer, scribed for Jesus España MD on 01/01/18 at 1415.
--- NOTE | 2018-01-01 14:00 | RAD ---
HISTORY: back pain COMPARISONS: September 05, 2013 VIEWS: 3 , Frontal, lateral, and coned-down lateral sacral views of the lumbar spine FINDINGS: ALIGNMENT: There is a mild scoliotic curvature of the spine. VERTEBRAL BODIES: The vertebral body heights are normal. The interpedicular distances are normal. JOINTS: The facet joints are normal. INTERVERTEBRAL DISCS: There is mild loss of intervertebral disc height at L5-S1. SOFT TISSUE: Unremarkable. OTHER: The pelvis is unremarkable. The lung bases are clear. IMPRESSION: MINIMAL DEGENERATIVE DISC DISEASE.
[2018-01-01 14:23] VITALS: BP 131/87
== END 2018-01-01 14:22 | disposition home or self-care (01) ==
LOC: ED 12:02
DX: M54.5 Low back pain (principal); F41.9 Anxiety disorder, unspecified; F17.210 Nicotine dependence, cigarettes, uncomplicated; Z88.0 Allergy status to penicillin; Z88.8 Allergy status to other drugs, medicaments and biological substances
CPT/HCPCS: 72100; 96372; 99282; J1100; J2360

== ENCOUNTER 2018-01-03 10:18 | Emergency (ER) | payer OTHER ==
[2018-01-03 10:30] VITALS: BP 135/83
--- NOTE | 2018-01-03 10:44 | UC ---
Abdominal Pain Male HPI - HPI Summary HPI Summary: The patient is a 27-year-old male that has had nausea and 2 episodes of vomiting in the past 48 hours. He states that he was started on a Medrol Dosepak for back pain and that the steroid is causing him to become sick to his stomach and throwing up. He is also requesting that we change the ibuprofen to something else nonnarcotic for his back pain. He injured his back helping to move a couch. States he can take naproxsyn and molaxicam - History of Current Complaint Chief Complaint: UCBackPain Stated Complaint: NAUSEA Time Seen by Provider: 01/03/18 10:23 Hx Obtained From: Patient Onset/Duration: Gradual Onset, Lasting Days Severity Initially: Mild Severity Currently: Mild Pain Intensity: 7 - back/not abd pain Pain Scale Used: 0-10 Numeric Location: Diffuse - when he has pain, Other - no abd pain at present Character: Cramping Aggravating Factor(s): Food, Other - steroid Alleviating Factor(s): Rest Associated Signs And Symptoms: Positive: Nausea, Vomiting - Allergies/Home Medications Allergies/Adverse Reactions: Allergies Allergy/AdvReac Type Severity Reaction Status Date / Time fluticasone [From Flonase] Allergy Vomiting Verified 01/01/18 12:14 ketorolac [From Toradol] Allergy muscle Verified 01/01/18 12:14 spasms mold Allergy Congestion Verified 01/01/18 12:14 Penicillins Allergy Vomiting Verified 01/01/18 12:14 prednisone Allergy Vomiting Verified 01/01/18 12:14 tetanus and diphtheria Allergy Vomiting Verified 01/01/18 12:14 toxoids white vinegar Allergy Rash Uncoded 11/27/17 12:26 PMH/Surg Hx/FS Hx/Imm Hx Previously Healthy: Yes Other History Of: Hepatitis C Negative For: Anticoagulant Therapy - Surgical History Surgical History: Yes Surgery Procedure, Year, and Place: 2012 orif right wrist/left jaw orif/orif left femur-knee cap - Family History Known Family History: Positive: Cardiac Disease, Hypertension, Diabetes, Other - thyroid disease - Social History Alcohol Use: None Substance Use Type: 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 Smoking Status (MU): Heavy Every Day Tobacco Smoker Type: Cigarettes, eCigarettes Amount Used/How Often: 1/4 ppd Length of Time of Smoking/Using Tobacco: 14 years Have You Smoked in the Last Year: No Household Exposure Type: Cigarettes - Immunization History Most Recent Influenza Vaccination: never Most Recent Tetanus Shot: no, allergic Review of Systems Constitutional: Negative Skin: Negative Eyes: Negative ENT: Negative Respiratory: Negative Cardiovascular: Negative Gastrointestinal: Vomiting, Nausea Genitourinary: Negative Motor: Negative Neurovascular: Negative Musculoskeletal: Myalgia Neurological: Negative Psychological: Negative Is Patient Immunocompromised?: No All Other Systems Reviewed And Are Negative: Yes Physical Exam Triage Information Reviewed: Yes Appearance: Well-Appearing, No Pain Distress, Well-Nourished Vital Signs: Initial Vital Signs Temp 98.5 F 01/03/18 10:22 Pulse 89 01/03/18 10:22 Resp 16 01/03/18 10:22 BP 135/83 01/03/18 10:22 Pulse Ox 100 01/03/18 10:22 Vital Signs Reviewed: Yes Eyes: Positive: Conjunctiva Clear ENT: Positive: Hearing grossly normal. Negative: Nasal congestion, Nasal drainage, Trismus, Muffled voice, Hoarse voice Neck: Positive: Supple, Nontender, No Lymphadenopathy Respiratory: Positive: Lungs clear, Normal breath sounds, No respiratory distress, No accessory muscle use Cardiovascular: Positive: RRR, No Murmur Abdomen Description: Positive: Nontender, No Organomegaly, Soft. Negative: CVA Tenderness (R), CVA Tenderness (L) Bowel Sounds: Positive: Present Musculoskeletal: Positive: ROM Intact, No Edema Neurological: Positive: Alert Psychological Exam: Normal Skin Exam: Normal Abd Pain Male Course/Dx - Differential Dx/Clinical Impression Provider Diagnoses: acute nausea and vomiting. lumbar strain Discharge - Sign-Out/Discharge Documenting (check all that apply): Patient Departure All imaging exams completed and their final reports reviewed: No Studies - Discharge Plan Condition: Stable Disposition: HOME Prescriptions: Naproxen Sodium [Naproxen Sodium 500 MG TAB] 500 mg PO BID PRN #30 tab PRN Reason: Pain Promethazine TAB* [Phenergan TAB*] 25 mg PO Q6H PRN #12 tab PRN Reason: Nausea Patient Education Materials: Acute Nausea and Vomiting (ED) Forms: *Gen. Provider Communication Referrals: Cheng Terrazas MD [Primary Care Provider] - 2 Days (if not better) - Billing Disposition and Condition Condition: STABLE Disposition: Home
== END 2018-01-03 10:50 | disposition home or self-care (01) ==
LOC: UCEAST 10:18
DX: R11.0 Nausea (principal); S39.012A Strain of muscle, fascia and tendon of lower back, initial encounter; X58.XXXA Exposure to other specified factors, initial encounter; Y92.9 Unspecified place or not applicable; Z88.1 Allergy status to other antibiotic agents; Z88.0 Allergy status to penicillin; Z88.8 Allergy status to other drugs, medicaments and biological substances
CPT/HCPCS: 99212; G0463

== ENCOUNTER 2018-02-02 12:50 | Emergency (ER) | payer OTHER ==
--- OUTSIDE RECORDS SUMMARY | 2018-02-02 14:16 | XMS REPORT ---
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 Ki,PEGGY Onset: 02/05/2011 Acute hepatitis C Ayse Forte M.D.,PEGGY Onset: 01/29/2011 Inflammatory disease of liver Cheng Terrazas Inactive Ki,FACP Inactive: 02/05/2011 Family History Date Family Member(s) Problem(s) Comments Mother 37 as of 01/04/2009 Social History Type Date Description Comments Marital Status Lives With Alone 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 s every day Ki Mojica Cyclobenzaprine 08/07 Active Tablets 10mg 60tab one by M54.2 Soo HCL s mouth three Varn, times a day N.P. as needed spasm Meloxicam 06/30 Active Tablets 7.5mg 45tab 1 -2 tablet M54.2 Soo s by mouth Varn, once daily N.P. as needed Proair HFA 05/05 Active Aerosol 108(90Bas 8.500 2 puffs Jesus E. /2017 e) gm four times jovon Mojica/Yasmin a day as M.D. needed Tylenol 00/ Active Capsules 325mg 2 tablets Unknown / every 4 hours as needed for pain Flexeril 01/01 Hx Tablets 10mg 12tab Every 8 Unknown s Hours - 01/08 Medrol 01/01 Hx TBPK 4mg 1unit .See Winston s Instruction - 01/07 Cephalexin /10 Hx Tablets 500mg 21tab take one L03.113 Hema s tablet MARA Islas - every 8 05/17 hours for days Cyclobenzaprine 06/30 Hx Tablets 10mg 60tab one by M54.2 Hema HCL s mouth three Roshan, TIME STUDY TECHNICIAN - times a day 08/07 as needed /2017 spasm No Active 06/17 Hx Unknown Medications /2016 - 03/12 Ondansetron Odt 03/22 Hx Tablets 4mg 30tab po tid prn 536.2 Dispers s Katia Terrazas M.D.,FACP Celebrex 03/22 Hx Capsules 200mg 50cap 1 po bid 786.59 s prn Katia Terrazas M.D.,FACP Oxycontin 02/19 Hx Tablets ER 30mg 30tab 1 tab po 789.09 12HR s q12h PAPratima Terrazas, - [phone] Ki,FACP 03/22 w Colace 02/19 Hx Capsules 100mg 60cap 1 po bid 789.09 s Katia Terrazas M.D.,FACP [facility] Omeprazole 02/[address] 20mg 60tab 1 cap bid 789.09 marvel Hunt M.D. Tramadol 02/13 Hx Tablets 37.5-325m 21tab 1 tab tid [place] Hydrochloride/Kalyan bertha Sterling M.D. 03/22 Maxalt-NON MORSE INTERCEPT TECHNICIAN 11/28 Hx Tablets 10mg 5tabs as directed 784.0 Joe Hunt M.D. Ibuprofen 07/03 Hx Tablets 800mg 60tab 1 tab po 724.2 s every 8 hrs c, - prn Radomir, 02/13 M.D. Robaxin-750 07/03 Hx Tablets 750mg 40tab 2 po bid 724.2 s c, - Radomir, 11/28 M.D. Tessalon Perles 01/04 Hx Capsules 100mg 30cap 1 po tid 465.9 s c, - Radomir, 07/03 M.D. Ambien Hx Tablets 10mg 30tab 1 po qhs Unknown / s prn sleep - insomnia 07/03 Amoxicillin Hx Tablets 875mg 20tab 1 tab po Unknown / s bid x 10 d. - 07/03 Lamiactel Hx 100mg 1 po day - 02/19 Lamictal Hx Tablets 100mg 1 tabs po Unknown / qd Ibuprofen Hx Tablets 400mg by mouth Unknown /0000 every 4 to - 6 hours as 06/30 Azithromycin Hx Tablets 500mg 1 tablet by Unknown / mouth daily - for 7 days 03/04 Prochlorperazine Hx Tablets 5mg 1 by mouth Unknown three times - a day as 05/05 Albuterol Sulfate Hx Nebulizer 1.25mg/3M 75ml every 4-6 Elisa /0000 L hours as Reeves, - needed for TIME STUDY TECHNICIAN 05/05 cough/ ness of breath Immunizations CPT Code Status Date Vaccine Lot # [id number] Given 02/05/2011 Hepatitis B Vaccine Adult Dosage [id number] Given 02/05/2011 Hepatitis A Vaccine Adult Dosage [id number] Given 01/29/2011 Influenza Virus 3Yrs & Over [id number] Given 02/19/2010 Influenza Virus 3Yrs & Over 11708 Given 02/19/2010 Influenza Virus 3Yrs & Over [id number] Vital Signs Date Vital Result Comment 01/13/2018 Height 71.5 inches 5'11.50" Weight 201.00 lb Heart Rate 80 /min BP Systolic 124 mmHg BP Diastolic 70 mmHg Body Temperature 97.0 F O2 % BldC Oximetry 98 % BMI (Body Mass Index) 27.6 kg/m2 10/07/2017 Height 71.5 inches 5'11.50" Weight 196.00 [...] Test Result H/L Range Note Poc Urinalysis 11/06/2017 Poc Glucose, Urine Negative Negative Poc Bilirubin, Urine Negative Negative Poc Ketone, Urine Negative Negative Poc Specific [place], Urine 1.020 1.010-1.030 Poc Blood, Urine Negative Negative Poc pH, Urine 8.0 5-9 Poc Protein, Urine Negative Negative Poc Urobilinogen, Urine 0.2 Negative Poc Nitrite, Urine Negative Negative Poc Leukocytes, Urine Negative Negative Poc Color, Urine Yellow Poc Clarity, Urine Clear 1 Poc Urinalysis 09/04/2017 Poc Glucose, Urine Negative Negative Poc Bilirubin, Urine Negative Negative Poc Ketone, Urine Negative Negative Poc Specific [place], Urine 1.025 1.010-1.030 Poc Blood, Urine Negative Negative Poc pH, Urine 5.5 5-9 Poc Protein, Urine Negative Negative Poc Urobilinogen, Urine 0.2 Negative Poc Nitrite, Urine Negative Negative Poc Leukocytes, Urine Negative Negative Poc Color, Urine Yellow Poc Clarity, Urine Clear 2 Laboratory test finding 05/16/2017 Hepatitis C Genotype TNP () 3 Hepatitis C Rna Quant Undetected IU/mL Undetected 4 Rapid Influenza A & B 02/24/2017 Influenza A Molecular NEGATIVE Negative 5 Molecular Influenza B Molecular NEGATIVE Negative Laboratory test finding 02/24/2017 Rapid Strep Molecular Negative Negative 6 Laboratory test finding 09/07/2016 C Reactive Protein 4.07 mg/L < 5.00 7 Laboratory test finding 09/07/2016 Lactic Acid 0.6 mmol/L 0.5-2.0 8 Comp Metabolic Panel 09/07/2016 Sodium 136 mmol/L [...] Egfr Non- 102.0 >60 Egfr 131.2 >60 9 CBC Auto Diff 09/07/2016 White Blood Count [...] Egfr Non- 143.4 >60 Egfr 184.4 >60 10 Potassium TNP mmol/L 3.5-5.0 11 Anion Gap TNP mmol/L 2-11 Ast TNP U/L 13-39 12 Urinalysis Profile 06/26/2016 Urine Color Yellow Urine Appearance Clear Urine Specific [place] 1.018 1.010-1.030 Urine pH 5.0 5-9 Urine Urobilinogen Negative Negative Urine Ketones Trace Negative Urine Protein Negative Negative Urine Leukocytes Negative Negative Urine Blood Negative Negative Urine Nitrite Negative Negative Urine Bilirubin Negative Negative Urine Glucose Negative Negative Laboratory test finding 06/26/2016 Magnesium 2.0 mg/dL 1.9-2.7 Lipase 38 U/L 11.0-82.0 C Reactive Protein < 1.00 mg/L < 5.00 13 Laboratory test finding 06/26/2016 Lactic Acid 0.7 mmol/L 0.5-2.0 14 Comp Metabolic Panel 06/26/2016 Sodium 137 mmol/L [...] Egfr Non- 132.0 >60 Egfr 169.7 >60 15 CBC Auto Diff 06/26/2016 White Blood Count [...] 1-3 Bilirubin Total 1.9 mg/dL High 0.4-1.5 16 Bilirubin Direct 0.8 mg/dL High 0.1-0.5 Indirect Bilirubin 1.1 mg/dL High 0.3-1.0 17 Alkaline Phosphatase 141 U/L 50-176 Alt (SGPT) 2107 U/L High 17-63 Ast (Sgot) 1141 U/L High 12-42 Hepatitis B Surface AB 01/29/2011 Hepatitis B Surface AB Nonreactive Nonreactive Hbsab Index 0.19 18 Laboratory test finding 01/29/2011 CMV Igg <4 AU/mL <4 19 Hepatitis C Genotype 01/29/2011 Hepatitis C Amplification Positive Negative 20 Hepatitis C Genotype 1a () 21 Laboratory test finding 01/29/2011 Hepatitis A Antibody Total Negative Negative 22 Hepatitis A AB Igm Nonreactive Nonreactive Hepatitis B Surface Ag Nonreactive Nonreactive Hepatitis C Antibody High Reactive Nonreactive 23 Laboratory test finding 01/29/2011 Hepatitis C Rna Quant 303,000 IU/mL Undetected 24 Comp Metabolic Panel 01/21/2011 Sodium 138 mmol/L 135-145 Potassium 4.7 mmol/L 3.5-5.0 Chloride 104 mmol/L 101-111 Co2 (Carbon Dioxide) 25.0 mmol/L 22-32 Anion Gap 9.0 mmol/L 2-11 25 Glucose 83 mg/dL 70-100 BUN 16 mg/dL 6-24 Creatinine 0.9 mg/dL 0.50-1.40 One Over Creatinine 1.11 BUN/Creatinine Ratio 17.8 8-20 Calcium 9.5 mg/dL 8.1-9.9 Total Protein 7.0 GM/DL 6.2-8.1 Albumin 3.9 GM/DL 3.6-5.4 Globulin 3.1 GM/DL 2-4 Albumin/Globulin Ratio 1.3 1-3 Bilirubin Total 1.3 mg/dL 0.4-1.5 26 Alkaline Phosphatase 124 U/L 50-176 Alt (SGPT) 1177 U/L High 17-63 27 Ast (Sgot) 577 U/L High 12-42 eGFR Non- 106.5 > 60 eGFR 137.0 > 60 28 CBC Auto Diff 01/21/2011 White Blood Count 9.0 CUMM 4.8-10.8 Red Cell Count 4.87 CUMM 4.6-6.2 Hemoglobin 15.3 g/dL 14.0-18.0 Hematocrit 44 % 42-52 Mean Corpuscular Volume 91 um3 80-94 Mean Corpuscular Hemoglob 31 pg 27-31 Mean Corpuscular HGB Cone 35 g/dL 32-36 Redcell Distribution WDTH 14 % 10.5-15 Platelet Count 150 CUMM 150-450 Mean Platelet Volume 11.2 um3 High 7.4-10.4 29 Manual Differential 01/21/2011 Polysegmented Neutrophil 45 % [...] mmol/L 22-32 Anion Gap 7.0 mmol/L 2-11 30 Glucose 95 mg/dL 70-100 BUN 11 mg/dL 6-24 Creatinine 0.80 mg/dL 0.50-1.40 One Over Creatinine 1.20 BUN/Creatinine Ratio 13.8 8-20 Calcium 9.5 mg/dL 8.1-9.9 Total Protein 8.2 GM/DL High 6.2-8.1 Albumin 4.7 GM/DL 3.6-5.4 Globulin 3.5 GM/DL 2-4 Albumin/Globulin Ratio 1.3 1-3 Bilirubin Total 1.0 mg/dL 0.4-1.5 31 Alkaline Phosphatase 68 U/L 50-176 Alt (SGPT) 18 U/L 17-63 Ast (Sgot) 16 U/L 12-42 eGFR Non- 123.2 > 60 eGFR 158.5 > 60 32 Laboratory test finding 08/20/2010 Troponin-I 0 NG/ML 0-0.06 33 CBC Auto Diff 08/20/2010 White Blood Count [...] Eosinophils 0 0-0.6 Abs Basophils 0 0-0.2 34 Laboratory test finding 08/20/2010 CPK (Creatine Kinase) 80 U/L 0-200 Laboratory test finding 03/28/2010 Clotest NEGATIVE Drug Abuse 20 Urine 02/13/2010 Urine Alcohol Negative mg/dL Cutoff: 30 Urine Ampetamines Negative ng/mL () 35 Urine Barbiturates Negative ng/mL () 36 Urine Benzodiazepines Negative ng/mL () 37 Urine Cocaine Negative ng/mL () 38 Urine Methadone Negative ng/mL () 39 Urine Opiates Negative ng/mL () 40 Urine Phencyclidine Negative ng/mL Cutoff: 25 Urine Propoxyphene Negative ng/mL () 41 Urine Tetrahydrocannabinol Reflex* ng/mL Cutoff: 20 42 THC Confirmation,Urine 02/13/2010 Urine THC Screen Positive Cutoff: 20 THC Carboxylic Acid By GC/MS 47 ng/mL Cutoff: 3 Urine THC Interpretation Positive () 43 Laboratory test finding 11/03/2009 Acetaminophen < 10 g/mL Low 10-30 44 Alcohol < 10.0 mg/dL None Detected 45 Salicylate < 4.0 mg/dL Less Than 30 46 Comp Metabolic Panel 11/03/2009 Sodium 139 mmol/L 135-145 Potassium 3.4 mmol/L Low 3.5-5.0 Chloride 108 mmol/L 101-111 Co2 (Carbon Dioxide) 23.0 mmol/L 22-32 Anion Gap 8.0 mmol/L 2-11 47 Glucose 89 mg/dL 70-100 48 BUN 11 mg/dL 6-24 Creatinine 0.90 mg/dL 0.50-1.40 One Over Creatinine 1.10 BUN/Creatinine Ratio 12.2 8-20 Calcium 9.7 mg/dL 8.1-9.9 49 Total Protein 7.5 GM/DL 6.2-8.1 Albumin 4.6 GM/DL 3.6-5.4 Globulin 2.9 GM/DL 2-4 Albumin/Globulin Ratio 1.6 1-3 Bilirubin Total 0.7 mg/dL 0.4-1.5 50 Alkaline Phosphatase 69 U/L 50-176 Alt (SGPT) 33 U/L 17-63 Ast (Sgot) 18 U/L 12-42 eGFR Non- 115.5 > 60 eGFR 139.8 > 60 51 CBC With Electronic Diff 11/03/2009 White Blood [...] PCP Urine Screen NONE DETECTED None Detect 52 Urinalysis 11/03/2009 Ua Color YELLOW Yellow Appearance-Urine CLEAR Clear Specific [place]-Ur 1.010 1.010-1.030 Esterase-Urine NEGATIVE Negative Nitrite NEGATIVE Negative Vyrmewxptskl-Ji-VQT NEGATIVE Negative Protein-Urine NEGATIVE Negative PH-Urine 8.0 5-9 Blood-Urine NEGATIVE Negative Ketones-Urine NEGATIVE Negative Bilirubin-Ur NEGATIVE Negative Glucose-Urine NEGATIVE Negative Laboratory test finding 08/01/2009 Syphilis IgG NON-REACTIVE Nonreactive 53 Urinalysis W/Microscopic 08/01/2009 Ua Color YELLOW Yellow Appearance-Urine TURBID Clear Specific [place]-Ur 1.020 1.010-1.030 Esterase-Urine NEGATIVE Negative Nitrite NEGATIVE Negative Lgosfmottjei-Sm-XNN NEGATIVE Negative Protein-Urine NEGATIVE Negative PH-Urine 7.5 5-9 Blood-Urine NEGATIVE Negative Ketones-Urine NEGATIVE Negative Bilirubin-Ur NEGATIVE Negative Glucose-Urine NEGATIVE Negative WBC-Urine 0-5 0-5 RBC-Urine 0-5 0-2 Epith Cells-Ur RARE None Amorphous Sed-U 3+ None Urine GC/Chlamydia 07/27/2009 Chlamydia On Urine NEGATIVE Negative 54 GC On Urine NEGATIVE Negative 55 1 Marine Superintendent: [id number] Marine Superintendent: [id number] 3 HCV Genotype, S was cancelled on 05/19/2017 at 08:32; Genotyping not performed due to inability to generate sufficient target sequence for genotype analysis. Test Performed by: [facility] [employer] [facility] [address] [place] [address] 4 Result in log IU/mL is Undetected. ADDITIONAL INFORMATION The quantification range of this assay is 15 to 100,000,000 IU/mL (1.18 log to 8.00 log IU/mL). Testing was performed using the ruy HCV test ([employer] with the ruy Sendmybag0 System. Test Performed by: [facility] [address] [place] [address] 5 Marine Superintendent: [id number] 6 Marine Superintendent: [id number] 7 Acute inflammation: >10.00 8 [facility] Severe Sepsis and Septic Shock Management Bundle Measure requires all lactic acids initially measuring >2.0 mmol/L be repeated. 9 Because ethnic data is not always [...] 5 Kidney failure <15 (or dialysis) 10 Because ethnic data is not always readily [...] 15-29 5 Kidney failure <15 (or dialysis) 11 Cancelled. Specimen hemolyzed. Unable to perform test requested. Reorder for specimen recollection. ISAIAH was called for recollect at 2310 on 07/07/16 by [id number] 12 Cancelled. Specimen hemolyzed. Unable to perform test requested. Reorder for specimen recollection. ISAIAH was called for recollect at 2310 on 07/07/16 by [id number] 13 Acute inflammation: >10.00 14 [facility] Severe Sepsis and Septic Shock Management Bundle Measure requires all lactic acids initially measuring >2.0 mmol/L be repeated. 15 Because ethnic data is not always readily [...] 15-29 5 Kidney failure <15 (or dialysis) 16 A metabolite of Naproxen, O-desmethylnaproxen, has been shown to interfere with the Jendrassik-Kari method for measuring total bilirubin. Samples from patients who have taken Naproxen have shown spurious elevation in total bilirubin levels. 17 Please note updated reference range, effective 10/19/09 18 The World Health Organization (WHO) Hepatitis B Immunoglobulin 1st International Reference Preparation (1976): The accepted criteria for immunity to HBV is anti-HBs activity greater than or equal to 10 mIU/mL. An Index Value of 1.00 is equivalent to 10 mIU/mL. Samples with an Index Value of 1.00 or greater are considered reactive (protective) in accordance with the CDC guidelines. 19 Test Performed by: [facility] [address] [place] [address] Australian Rules Footballer: Humberto Lopez III, M.D. 20 REPORTABLE DISEASE Genotype to follow Research Use Only - Hepatitis C Genotyping Test Performed by: [facility] [address] [place] [address] Australian Rules Footballer: Humberto Lopez III, M.D. 21 -- REFERENCE VALUE -- Not applicable Testing was done by DNA sequencing assay using the Mamina Shkola HCV 5'NC Genotyping Kit. Research Use Only - Hepatitis C Genotyping Test Performed by: [facility] [address] [place] [address] Australian Rules Footballer: Humberto Lopez III, M.D. 22 Test Performed by: [facility] [address] [place] [address] Australian Rules Footballer: Humberto Lopez III, M.D. 23 High reactive sample are considered positive for HCV. 24 Result in log IU/mL=5.48 Quantification range of this assay is 43 IU/mL to 69,000,000 IU/mL (1.63 to 7.84 log IU/mL). Testing was performed by the RUY AmpliPrep/RUY TaqMan HCV Test ([employer] Test Performed by: [facility] [address] [place] [address] Australian Rules Footballer: Humberto Lopez III, M.D. 25 Anion gap measurement may be of limited value in the presence of any alkalosis, especially in a combined acid base disorder. . 26 A metabolite of Naproxen, O-desmethylnaproxen, has been shown to interfere with the Jendrassik-Kari method for measuring total bilirubin. Samples from patients who have taken Naproxen have shown spurious elevation in total bilirubin levels. 27 RESULTS CONFIRMED BY REPEAT ANALYSIS. REPEATED RESULT WAS 1176. 28 Because ethnic data is not always readily [...] 15-29 5 Kidney failure <15 (or dialysis) 29 Imm. NE 1 30 Anion gap measurement may be of limited value in the presence of any alkalosis, especially in a combined acid base disorder. . 31 A metabolite of Naproxen, O-desmethylnaproxen, has been shown to interfere with the Jendrassik-[place] method for measuring total bilirubin. Samples from patients who have taken Naproxen have shown spurious elevation in total bilirubin levels. 32 Because ethnic data is not always readily [...] 15-29 5 Kidney failure <15 (or dialysis) 33 New Reference Range and Interpretation effective 01/01/2002 TnI (ng/ml) INTERPRETATION Less Than 0.06 ng/mL NOT SUPPORTIVE OF DIAGNOSIS OF DE 0.06 - 0.50 ng/ml INDETERMINATE: SUGGEST SERIAL STUDIES IF CLINICALLY INDICATED. Greater than 0.5 ng/mL CONSISTENT WITH DIAGNOSIS OF DE . 34 Lymphopenia % 35 -- REFERENCE VALUE -- Cutoff: 500 36 -- REFERENCE VALUE -- Cutoff: 200 37 -- REFERENCE VALUE -- Cutoff: 200 38 -- REFERENCE VALUE -- Cutoff: 300 39 -- REFERENCE VALUE -- Cutoff: 300 40 -- REFERENCE VALUE -- Cutoff: 300 41 -- REFERENCE VALUE -- Cutoff: 300 42 *Drug confirmation ordered by reflex. Refer to confirmation result to follow for the definitive result. This report is intended for use in clinical monitoring or management of patients. It is not intended for use in employment-related testing. Test Performed by: [facility] D[facility] Med [facility] Pathology [address] [place] [address] Australian Rules Footballer: Humberto Lopez III, M.D. 43 This report is intended for use in clinical monitoring and management of patients. It is not intended for use in employment-related drug testing. Test Performed by: [facility] [address] [place] [address] Australian Rules Footballer: Humberto Lopez III, M.D. 44 TOXIC LEVELS: GREATER THAN 150 MCG/ML @ 4HR POST INGEST GREATER THAN 50 MCG/ML @ 12HR POST INGEST The detection limit for ACETAMINOPHEN is 10.0 mcg/ml . Values less than 10.0 mcg/ml cannot be accurately measured. . 45 The detection limit for ETHANOL is 10.0 mg/dl . Values less than 10.0 mg/dl cannot be accurately measured. . 46 The detection limit for SALICYLATE is 4.0 mg/dl. Values less than 4.0 mg/dl cannot be accurately measured. . 47 Anion gap measurement may be of limited value in the presence of any alkalosis, especially in a combined acid base disorder. . 48 Note change in reference range as of 11/19/07. The change was based on recommendations from the [place] [employer]. 49 Please note change in reference range effective 07 . 50 A metabolite of Naproxen, O-desmethylnaproxen, has been shown to interfere with the Jendrassik-[place] method for measuring total bilirubin. Samples from patients who have taken Naproxen have shown spurious elevation in total bilirubin levels. 51 Because ethnic data is not always readily [...] 15-29 5 Kidney failure <15 (or dialysis) 52 THE URINE SPECIMEN WAS TESTED AT THE LISTED CUTOFFS: DRUG CLASS TEST LEVEL (NG/ML) AMPHETAMINES 300 BARBITUATES 200 BENZODIAZEPINE METABOLITES 200 COCAINE METABOLITES 300 CANNABINOIDS 25 OPIATES 200 PCP 25 THIS IS A SCREENING PROCEDURE. POSITIVE RESULTS ARE NOT CONFIRMED. SPECIMEN WAS RECEIVED WITHOUT CHAIN OF CUSTODY. RESULTS SHOULD BE USED FOR MEDICAL PURPOSES ONLY. . 53 Warning: A positive result is not useful for establishing a diagnosis of syphilis. In most situations, such a result may reflect a prior treated infection; a negative result can exclude a diagnosis of syphilis except for incubating or early primary disease. 54 . A negative result does not preclude the presence of a C.trachomatis or N.gonorrhoeae infection because results are dependent on adequate specimen collection, absence of inhibitors, and sufficient rRNA to be detected. Test results may be affected by improper specimen collection, improper specimen storage, technical error, or specimen mixup. . 55 . A negative result does not preclude [...] Location Provider CPT E/M Dx Office Visit 10/07/2017 [facility] Jesus Mojica, [address] J20.9 3:20p - Abilio Emerson Office Visit 08/07/2017 [facility] [place] [address] L03.113 3:20p - Leonid M25.531 Office Visit 06/30/2017 11:40a [facility] [place] [address] M54.2 - Leonid Office Visit 05/05/2017 1:30p [facility] Elisa Reeves, [address] B17[address] TIME STUDY TECHNICIAN G89.21 B19.20 Office Visit 06/20/2016 3:15p [facility] [place] [address] R10.812 [facility] Office Visit 06/17/2016 10:00a [facility] [place] [address] R10.812 [facility] R59.0 K56.1 Office Visit 06/10/2016 7:00a [facility] Thiago Johnson, 25150 K56.1 Of [facility] Office Visit 02/05/2011 10:00a DO Not Use Under Cutting Machine Operator AT Cheng Terrazas, [address]1003 070.51 Say Emerson,FACP V05.3 Office Visit 01/29/2011 9:40a DO Not Use Under Cutting Machine Operator AT [place], 24961 573.3 Say Emerson,FACP v04.81 305.53 Office Visit 03/22/2010 8:40a DO Not Use Under Cutting Machine Operator AT [place], 33233 786.59 Say Emerson,FACP 536.2 078.12 Office Visit 02/19/2010 12:00p DO Not Use Under Cutting Machine Operator AT [facility], 75144 789.09 Say Emerson,FACP 305.53 V04.81 Office Visit 02/13/2010 2:20p DO Not Use Under Cutting Machine Operator AT Frankie Hunt, 36502 789.09 Say Goldman.Katia 783.21 786.50 304.00 Office Visit 11/28/2009 3:40p DO Not Use Under Cutting Machine Operator AT Frankie Hunt M.D. 37613 784.0 [facility] 783.21 Office Visit 08/01/2009 1:20p DO Not Use Under Cutting Machine Operator AT Caren Landis, 48744 724.2 Say M.Katia Office Visit 07/03/2009 2:00p DO Not Use Under Cutting Machine Operator AT Caren Landis, 77375 724.2 Say M.Katia Office Visit 01/04/2009 3:00p DO Not Use Under Cutting Machine Operator AT Caren Landis, 45959 465.9 [place] Emerson 466.0 Plan of Care 01/13/2018 - Soo Cota, N.P.M54.5 Low back painNew Therapy:Physical TherapyComments:For your back pain:I have refilled your prescriptions for Meloxicam and Cyclobenzaprine.I am referring you for physical therapy. This should help. I also encourage you to go for acupuncture and see if this helps.
--- OUTSIDE RECORDS SUMMARY | 2018-02-02 14:16 | XMS REPORT ---
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 Forte remission Ki,PEGGY Onset: 02/05/2011 Acute hepatitis C Ayse Forte M.D.,PEGGY Onset: 01/29/2011 Inflammatory disease of liver Cheng Terrazas Inactive Ki,FACP Inactive: 02/05/2011 Family History Date Family Member(s) Problem(s) Comments Mother 37 as of 01/04/2009 Social History Type Date Description Comments Marital Status Lives With Alone Occupation [employer] Cigarette Use Current Cigarette Smoker 1 [...] Form Strength Qnty SIG Indications Ordering Provider Vistaril 01/28 Active Capsules 25mg 42cap take 1 to 2 F41.9 Hema s capsules by MARA Islas mouth four times a day as needed for anxiety Citalopram 01/28 Active Tablets 20mg 30tab 1 by mouth F33.9 Hema Hydrobromide /2017 s every day MARA Islas Naproxen 01/28 Active Tablets 500mg 20tab 1 tablet M79.641 Hema s with food MARA Islas by mouth twice a day Proair HFA 05/05 Active Aerosol 108(90Bas 8.500 2 puffs Jesus E. /2017 e) gm four times jovon Mojica/Yasmin a day as M.D. needed Tylenol 00 Active Capsules 325mg 2 tablets Unknown /0000 every 4 hours as needed for pain Promethazine HCL 01/03 Hx Tablets 25mg 12tab Q6H s - 01/28 Naproxen Sodium 01/03 Hx Tablets ER 500mg 30tab Twice Daily Unknown 24HR s - 01/28 Flexeril 10 Hx Tablets 10mg 12tab Every 8 Unknown s Hours - 01/08 Medrol 01/01 Hx TBPK 4mg 1unit .See Winston s Instruction - 01/07 Motrin 11/06 Hx Tablets 600mg 30tab Q6H Unknown s - 01/28 Cetirizine HCL 10/07 Hx Tablets 10mg 30tab 1 by mouth J20.9 Jesus E. /2017 s every day Hallie Mojica M.D. 01/28 Cyclobenzaprine 08/07 Hx Tablets 10mg 60tab one by M54.2 Soo HCL s mouth three Varn, - times a day N.P. 01/28 as needed spasm Cephalexin 08/07 Hx Tablets 500mg 21tab take one L03.113 Hema s tablet Roshan, LINE WALKER - every 8 05/17 hours for days Cyclobenzaprine 06/30 Hx Tablets 10mg 60tab one by M54.2 Hema HCL s mouth three Roshan, LINE WALKER - times a day 08/07 as needed spasm Meloxicam 06/30 Hx Tablets 7.5mg 45tab 1 -2 tablet M54.2 Soo s by mouth Varn, - once daily N.P. 01/28 as needed No Active 06/17 Hx Unknown Medications /2016 - 03/12 Ondansetron Odt 03/22 Hx Tablets 4mg 30tab po tid prn 536.2 Dispers marvel Terrazas M.D.,FACP Celebrex 03/22 Hx Capsules 200mg 50cap 1 po bid 786.59 s prn Katia Terrazas M.D.,FACP Oxycontin 02/19 Hx Tablets ER 30mg 30tab 1 tab po 789.09 12HR s q12h KHLOE Terrazas, - [id number] Ki,FACP 03/22 Colace 02/19 Hx Capsules 100mg 60cap 1 po bid 789.09 marvel Terrazas M.D.,FACP [facility] Omeprazole 02/[address] 20mg 60tab 1 cap bid 789.09 marvel Hunt M.D. Tramadol 02/13 Hx Tablets 37.5-325m 21tab 1 tab tid Frankiecherelle Suarez/ bertha Sterling M.D. 03/22 Maxalt-[employer]PER[employer]ENT [employer] 11/28 Hx Tablets 10mg 5tabs as directed 784.0 Frankie Joe Hunt M.D. Ibuprofen 07/03 Hx Tablets 800mg 60tab 1 tab po 724.2 Stevanovi /2010 s every 8 hrs c, - prn Radomir, 02/13 M.D. Robaxin-750 07/03 Hx Tablets 750mg 40tab 2 po bid 724.2 s c, - Radomir, 11/28 M.D. Tessalon Perles 01/04 Hx Capsules 100mg 30cap 1 po tid 465.9 s c, - Radomir, 07/03.D. Ambien Hx Tablets 10mg 30tab 1 po qhs Unknown /0000 s prn sleep - insomnia 07/03 Amoxicillin Hx Tablets 875mg 20tab 1 tab po Unknown /0000 s bid x 10 d. - 07/03 Lamiactel Hx 100mg 1 po day Unknown /0000 - 02/19 Lamictal Hx Tablets 100mg 1 tabs po Unknown /0000 qd Ibuprofen 00 Hx Tablets 400mg by mouth Unknown /0000 every 4 to - 6 hours as 06/30 Azithromycin Hx Tablets 500mg 1 tablet by Unknown /0000 mouth daily - for 7 days 03/04 Prochlorperazine Hx Tablets 5mg 1 by mouth Unknown Male /0000 three times - a day as 05/05 Albuterol Sulfate Hx Nebulizer 1.25mg/3M 75ml every 4-6 Elisa /0000 L hours as Leandro, - needed for LINE WALKER 05/05 cough/short ness of breath Immunizations CPT Code Status Date Vaccine Lot # [id number] Given 02/05/2011 Hepatitis B Vaccine Adult Dosage [id number] Given 02/05/2011 Hepatitis A Vaccine Adult Dosage [id number] Given 01/29/2011 Influenza Virus 3Yrs & Over [id number] Given 02/19/2010 Influenza Virus 3Yrs & Over 39485 Given 02/19/2010 Influenza Virus 3Yrs & Over [id number] Vital Signs Date Vital Result Comment 01/28/2018 Height 71.5 inches 5'11.50" Weight 195.00 lb Heart Rate 133 /min BP Systolic 152 mmHg BP Diastolic 87 mmHg O2 % BldC Oximetry 97 % BMI (Body Mass Index) 26.8 kg/m2 01/13/2018 Height 71.5 inches 5'11.50" Weight 201.00 [...] Poc Ketone, Urine Negative Negative Poc Specific Fertile, Urine 1.020 1.010-1.030 Poc Blood, Urine Negative Negative Poc pH, Urine 8.0 5-9 Poc Protein, Urine Negative Negative Poc Urobilinogen, Urine 0.2 Negative Poc Nitrite, Urine Negative Negative Poc Leukocytes, Urine Negative Negative Poc Color, Urine Yellow Poc Clarity, Urine Clear 1 Poc Urinalysis 09/04/2017 Poc Glucose, Urine Negative Negative Poc Bilirubin, Urine Negative Negative Poc Ketone, Urine Negative Negative Poc Specific Fertile, Urine 1.025 1.010-1.030 Poc Blood, Urine Negative [...] Negative Negative 6 Laboratory test finding 09/07/2016 Lactic Acid 0.6 mmol/L 0.5-2.0 7 CBC Auto Diff 09/07/2016 White Blood Count [...] 0-2 Nucleated Red Blood Cells % 0 Comp Metabolic Panel 09/07/2016 Sodium 136 mmol/L [...] Non- 102.0 >60 Egfr 131.2 >60 8 Laboratory test finding 09/07/2016 C Reactive Protein 4.07 mg/L < 5.00 9 CBC Auto Diff 07/07/2016 White Blood Count [...] mmol/L 2-11 Ast TNP U/L 13-39 12 CBC Auto Diff 06/26/2016 White Blood Count [...] 0-2 Nucleated Red Blood Cells % 0 Urinalysis Profile 06/26/2016 Urine Color Yellow Urine Appearance Clear Urine Specific Fertile 1.018 1.010-1.030 Urine pH 5.0 5-9 Urine Urobilinogen Negative Negative Urine Ketones Trace Negative Urine Protein Negative Negative Urine Leukocytes Negative Negative Urine Blood Negative Negative Urine Nitrite Negative Negative Urine Bilirubin Negative Negative Urine Glucose Negative Negative Laboratory test finding 06/26/2016 Lactic Acid 0.7 [...] Non- 132.0 >60 Egfr 169.7 >60 14 Laboratory test finding 06/26/2016 Magnesium 2.0 mg/dL 1.9-2.7 Lipase 38 U/L 11.0-82.0 C Reactive Protein < 1.00 mg/L < 5.00 15 CBC Auto Diff 02/07/2012 White Blood Count [...] 0-2 Nucleated Red Blood Cells % 0 Laboratory test 01/29/2011 Hepatitis C Rna Quant 303,000 IU/mL Undetected 16 finding Hepatitis C Genotype 01/29/2011 Hepatitis C Positive Negative 17 Amplification Hepatitis C Genotype 1a () 18 Laboratory test finding 01/29/2011 CMV Igg <4 AU/mL <4 19 Iron & Iron Binding Capacity 01/29/2011 Iron Total 161 g/dL 45-182 Unsaturated Iron Binding 404 g/dL Total Iron Binding Capacity 565 g/dL High 250-450 % Iron Saturation 28 % 15-55 Liver Function Panel 01/29/2011 Total Protein 8.5 GM/DL High 6.2-8.1 Albumin 4.9 GM/DL 3.6-5.4 Globulin 3.6 GM/DL 2-4 Albumin/Globulin Ratio 1.4 1-3 Bilirubin Total 1.9 mg/dL High 0.4-1.5 20 Bilirubin Direct 0.8 mg/dL High 0.1-0.5 Indirect Bilirubin 1.1 mg/dL High 0.3-1.0 21 Alkaline Phosphatase 141 U/L 50-176 Alt (SGPT) 2107 U/L High 17-63 Ast (Sgot) 1141 U/L High 12-42 Hepatitis B Surface AB 01/29/2011 Hepatitis B Surface AB Nonreactive Nonreactive Hbsab Index 0.19 22 Laboratory test finding 01/29/2011 Ferritin 476 NG/ML High 24-336 Laboratory test finding 01/29/2011 Hepatitis A Antibody Negative Negative 23 Total Hepatitis A AB Igm Nonreactive Nonreactive Hepatitis B Surface Ag Nonreactive Nonreactive Hepatitis C Antibody High Reactive Nonreactive 24 CBC Auto Diff 01/21/2011 White Blood Count 9.0 CUMM 4.8-10.8 Red Cell Count 4.87 CUMM 4.6-6.2 Hemoglobin 15.3 g/dL 14.0-18.0 Hematocrit 44 % 42-52 Mean Corpuscular Volume 91 um3 80-94 Mean Corpuscular Hemoglob 31 pg 27-31 Mean Corpuscular HGB Cone 35 g/dL 32-36 Redcell Distribution WDTH 14 % 10.5-15 Platelet Count 150 CUMM 150-450 Mean Platelet Volume 11.2 um3 High 7.4-10.4 25 Manual Differential 01/21/2011 Polysegmented Neutrophil 45 % 38-83 Band Neutrophil 7 % 0-8 Lymphocyte 33 % 25-47 Monocyte 9 % 0-13 Eosinophil 4 % 0-6 Atypical Lymph 2 % 0-6 Absolute Neutrophil Count 4.6 RBC Morphology NORMAL Comp Metabolic Panel 01/21/2011 Sodium 138 mmol/L 135-145 Potassium 4.7 mmol/L 3.5-5.0 Chloride 104 mmol/L 101-111 Co2 (Carbon Dioxide) 25.0 mmol/L 22-32 Anion Gap 9.0 mmol/L 2-11 26 Glucose 83 mg/dL 70-100 BUN 16 mg/dL 6-24 Creatinine 0.9 mg/dL 0.50-1.40 One Over Creatinine 1.11 BUN/Creatinine Ratio 17.8 8-20 Calcium 9.5 mg/dL 8.1-9.9 Total Protein 7.0 GM/DL 6.2-8.1 Albumin 3.9 GM/DL 3.6-5.4 Globulin 3.1 GM/DL 2-4 Albumin/Globulin Ratio 1.3 1-3 Bilirubin Total 1.3 mg/dL 0.4-1.5 27 Alkaline Phosphatase 124 U/L 50-176 Alt (SGPT) 1177 U/L High 17-63 28 Ast (Sgot) 577 U/L High 12-42 eGFR Non- 106.5 > 60 eGFR 137.0 > 60 29 Laboratory test finding 08/20/2010 CPK (Creatine Kinase) 80 U/L 0-200 CBC Auto Diff 08/20/2010 White Blood Count [...] Eosinophils 0 0-0.6 Abs Basophils 0 0-0.2 30 Comp Metabolic Panel 08/20/2010 Sodium 138 mmol/L 135-145 Potassium 3.8 mmol/L 3.5-5.0 Chloride 107 mmol/L 101-111 Co2 (Carbon Dioxide) 24.0 mmol/L 22-32 Anion Gap 7.0 mmol/L 2-11 31 Glucose 95 mg/dL 70-100 BUN 11 mg/dL 6-24 Creatinine 0.80 mg/dL 0.50-1.40 One Over Creatinine 1.20 BUN/Creatinine Ratio 13.8 8-20 Calcium 9.5 mg/dL 8.1-9.9 Total Protein 8.2 GM/DL High 6.2-8.1 Albumin 4.7 GM/DL 3.6-5.4 Globulin 3.5 GM/DL 2-4 Albumin/Globulin Ratio 1.3 1-3 Bilirubin Total 1.0 mg/dL 0.4-1.5 32 Alkaline Phosphatase 68 U/L 50-176 Alt (SGPT) 18 U/L 17-63 Ast (Sgot) 16 U/L 12-42 eGFR Non- 123.2 > 60 eGFR 158.5 > 60 33 Laboratory test finding 08/20/2010 Troponin-I 0 NG/ML 0-0.06 34 Laboratory test finding 03/28/2010 Clotest NEGATIVE Drug [...] 3 Urine THC Interpretation Positive () 43 Urinalysis 11/03/2009 Ua Color YELLOW Yellow Appearance-Urine CLEAR Clear Specific Fertile-Ur 1.010 1.010-1.030 Esterase-Urine NEGATIVE Negative Nitrite NEGATIVE Negative Ccdlwuvatnbi-Sj-ZWK NEGATIVE Negative Protein-Urine NEGATIVE Negative PH-Urine 8.0 5-9 Blood-Urine NEGATIVE Negative Ketones-Urine NEGATIVE Negative Bilirubin-Ur NEGATIVE Negative Glucose-Urine NEGATIVE Negative Urine Drug SCR ED 11/03/2009 Amphetamines Urine NONE DETECTED None Detect Pain Clinic Screen Barbituates Urine Screen NONE DETECTED None Detect Benzodiazepine Ur Screen NONE DETECTED None Detect Cannabinoid Urine Screen POSITIVE None Detect Cocaine Metabolites Urine NONE DETECTED None Detect Opiates Urine Screen NONE DETECTED None Detect PCP Urine Screen NONE DETECTED None Detect 44 CBC With Electronic Diff 11/03/2009 White Blood [...] Eosinophils 0.2 0-0.6 Abs Basophils 0 0-0.2 Comp Metabolic Panel 11/03/2009 Sodium 139 mmol/L 135-145 Potassium 3.4 mmol/L Low 3.5-5.0 Chloride 108 mmol/L 101-111 Co2 (Carbon Dioxide) 23.0 mmol/L 22-32 Anion Gap 8.0 mmol/L 2-11 45 Glucose 89 mg/dL 70-100 46 BUN 11 mg/dL 6-24 Creatinine 0.90 mg/dL 0.50-1.40 One Over Creatinine 1.10 BUN/Creatinine Ratio 12.2 8-20 Calcium 9.7 mg/dL 8.1-9.9 47 Total Protein 7.5 GM/DL 6.2-8.1 Albumin 4.6 GM/DL 3.6-5.4 Globulin 2.9 GM/DL 2-4 Albumin/Globulin Ratio 1.6 1-3 Bilirubin Total 0.7 mg/dL 0.4-1.5 48 Alkaline Phosphatase 69 U/L 50-176 Alt (SGPT) 33 U/L 17-63 Ast (Sgot) 18 U/L 12-42 eGFR Non- 115.5 > 60 eGFR 139.8 > 60 49 Laboratory test finding 11/03/2009 Acetaminophen < 10 g/mL Low 10-30 50 Alcohol < 10.0 mg/dL None Detected 51 Salicylate < 4.0 mg/dL Less Than 30 52 Urinalysis W/Microscopic 08/01/2009 Ua Color YELLOW Yellow Appearance-Urine TURBID Clear Specific Fertile-Ur 1.020 1.010-1.030 Esterase-Urine NEGATIVE Negative Nitrite NEGATIVE Negative Xqcupvsvzcte-Yk-LIO NEGATIVE Negative Protein-Urine NEGATIVE Negative PH-Urine 7.5 5-9 Blood-Urine NEGATIVE Negative Ketones-Urine NEGATIVE Negative Bilirubin-Ur NEGATIVE Negative Glucose-Urine NEGATIVE Negative WBC-Urine 0-5 0-5 RBC-Urine 0-5 0-2 Epith Cells-Ur RARE None Amorphous Sed-U 3+ None Laboratory test finding 08/01/2009 Syphilis IgG NON-REACTIVE Nonreactive 53 Urine GC/Chlamydia 07/27/2009 Chlamydia On Urine NEGATIVE Negative 54 GC On Urine NEGATIVE Negative 55 1 Family Services Worker: [id number] 2 Family Services Worker: [id number] 3 HCV Genotype, S was cancelled on 05/19/2017 at 08:32; Genotyping not performed due to inability to generate sufficient target sequence for genotype analysis. Test Performed by: [facility] [place] [address] 4 Result in log IU/mL is Undetected. ADDITIONAL INFORMATION The quantification range of this assay is 15 to 100,000,000 IU/mL (1.18 log to 8.00 log IU/mL). Testing was performed using the ruy HCV test ([employer] with the ruy 6800 System. Test Performed by: [facility] - [address] [address] 5 Family Services Worker: [id number] 6 Family Services Worker: [id number] 7 [facility] Severe Sepsis and Septic Shock Management [...] 5 Kidney failure <15 (or dialysis) 9 Acute inflammation: >10.00 10 Because ethnic data is not always [...] for recollect at 2310 on 07/07/16 by [id number] Cancelled. Specimen hemolyzed. Unable to perform test requested. Reorder for specimen recollection. ISAIAH was called for recollect at 2310 on 07/07/16 by [id number] 13 [facility] Severe Sepsis and Septic Shock Management [...] 5 Kidney failure <15 (or dialysis) 15 Acute inflammation: >10.00 16 Result in log IU/mL=5.48 Quantification range of this assay is 43 IU/mL to 69,000,000 IU/mL (1.63 to 7.84 log IU/mL). Testing was performed by the RUY AmpliPrep/RUY TaqMan HCV Test ([employer] Test Performed by: [facility] Dpt of Lab Med and Pathology [address] [place] [address] Grain Handler: Humberto Lopez III, M.D. 17 REPORTABLE DISEASE Genotype to follow Research Use Only - Hepatitis C Genotyping Test Performed by: [facility] [address] [place] [address] Grain Handler: Humberto Lopez III, M.D. 18 -- REFERENCE VALUE -- Not applicable Testing was done by DNA sequencing assay using the [employer] HCV 5'NC Genotyping Kit. Research Use Only - Hepatitis C Genotyping Test Performed by: [facility] [address] [place] [address] Grain Handler: Humberto Lopez III, M.D. 19 Test Performed by: [facility] [address] [place] [address] Grain Handler: Humberto Lopez III, M.D. 20 A metabolite of Naproxen, O-desmethylnaproxen, has been shown to interfere with the Jendrassik-Kari method for measuring total bilirubin. Samples from patients who have taken Naproxen have shown spurious elevation in total bilirubin levels. 21 Please note updated reference range, effective 10/19/09 22 The World Health Organization (WHO) Hepatitis B Immunoglobulin 1st International Reference Preparation (1976): The accepted criteria for immunity to HBV is anti-HBs activity greater than or equal to 10 mIU/mL. An Index Value of 1.00 is equivalent to 10 mIU/mL. Samples with an Index Value of 1.00 or greater are considered reactive (protective) in accordance with the CDC guidelines. 23 Test Performed by: [facility] [address] [place] [address] Grain Handler: Humberto Lopez III, M.D. 24 High reactive sample are considered positive for HCV. 25 Imm. NE 1 26 Anion gap measurement may be of limited value in the presence of any alkalosis, especially in a combined acid base disorder. . 27 A metabolite of Naproxen, O-desmethylnaproxen, has been shown to interfere with the Jendrassik-Kari method for measuring total bilirubin. Samples from patients who have taken Naproxen have shown spurious elevation in total bilirubin levels. 28 RESULTS CONFIRMED BY REPEAT ANALYSIS. REPEATED RESULT WAS 1176. 29 Because ethnic data is not always readily [...] 15-29 5 Kidney failure <15 (or dialysis) 30 Lymphopenia % 31 Anion gap measurement may be of limited value in the presence of any alkalosis, especially in a combined acid base disorder. . 32 A metabolite of Naproxen, O-desmethylnaproxen, has been shown to interfere with the Jendrassik-Kari method for measuring total bilirubin. Samples from patients who have taken Naproxen have shown spurious elevation in total bilirubin levels. 33 Because ethnic data is not always readily [...] 15-29 5 Kidney failure <15 (or dialysis) 34 New Reference Range and Interpretation effective 01/01/2002 TnI (ng/ml) INTERPRETATION Less Than 0.06 ng/mL NOT SUPPORTIVE OF DIAGNOSIS OF CA 0.06 - 0.50 ng/ml INDETERMINATE: SUGGEST SERIAL STUDIES IF CLINICALLY INDICATED. Greater than 0.5 ng/mL CONSISTENT WITH DIAGNOSIS OF CA . 35 -- REFERENCE VALUE -- Cutoff: 500 [...] use in employment-related testing. Test Performed by: [facility] [address] [place] [address] Grain Handler: Humberto Lopez III, M.D. 43 This report is intended for use in clinical monitoring and management of patients. It is not intended for use in employment-related drug testing. Test Performed by: [facility] [address] [place] [address] Grain Handler: Humberto Lopez III, M.D. 44 THE URINE SPECIMEN WAS TESTED AT THE LISTED CUTOFFS: DRUG CLASS TEST LEVEL (NG/ML) AMPHETAMINES 300 BARBITUATES 200 BENZODIAZEPINE METABOLITES 200 COCAINE METABOLITES 300 CANNABINOIDS 25 OPIATES 200 PCP 25 THIS IS A SCREENING PROCEDURE. POSITIVE RESULTS ARE NOT CONFIRMED. SPECIMEN WAS RECEIVED WITHOUT CHAIN OF CUSTODY. RESULTS SHOULD BE USED FOR MEDICAL PURPOSES ONLY. . 45 Anion gap measurement may be of limited value in the presence of any alkalosis, especially in a combined acid base disorder. . 46 Note change in reference range as of 11/19/07. The change was based on recommendations from the [place] [employer]. 47 Please note change in reference range effective 07 . 48 A metabolite of Naproxen, O-desmethylnaproxen, has been shown to interfere with the Jendrdonaldik-[place] method for measuring total bilirubin. Samples from patients who have taken Naproxen have shown spurious elevation in total bilirubin levels. 49 Because ethnic data is not always readily [...] 15-29 5 Kidney failure <15 (or dialysis) 50 TOXIC LEVELS: GREATER THAN 150 MCG/ML @ 4HR POST INGEST GREATER THAN 50 MCG/ML @ 12HR POST INGEST The detection limit for ACETAMINOPHEN is 10.0 mcg/ml . Values less than 10.0 mcg/ml cannot be accurately measured. . 51 The detection limit for ETHANOL is 10.0 mg/dl . Values less than 10.0 mg/dl cannot be accurately measured. . 52 The detection limit for SALICYLATE is 4.0 mg/dl. Values less than 4.0 mg/dl cannot be accurately measured. . 53 Warning: A positive result is [...] Provider CPT E/M Dx Office Visit 10/07/2017 [facility] Jesus Mojica, [address] J20.9 3:20p - Abilio Emerson Office Visit 08/07/2017 [facility] [place] [address] L03.113 3:20p - Leonid M25.531 Office Visit 06/30/2017 11:40a [facility] [place] [address] M54.2 - Leonid Office Visit 05/05/2017 1:30p [facility] Elisa Reeves, [address] B17.10 - [address] LINE WALKER G89.21 B19.20 Office Visit 06/20/2016 3:15p [facility] [place] [address] R10.812 Wig Stylist Office Visit 06/17/2016 10:00a [facility] [place] [address] R10.812 Wig Stylist R59.0 K56.1 Office Visit 06/10/2016 7:00a [facility], [address] K56.1 Of Wig Stylist Office Visit 02/05/2011 10:00a DO Not Use Wig Stylist AT [facility], [address] 070.51 Parkradha Goldman.Katia,FACP V05.3 Office Visit 01/29/2011 9:40a DO Not Use Wig Stylist AT [facility], [address] 573.3 [place] M.Katia,FACP v04.81 305.53 Office Visit 03/22/2010 8:40a DO Not Use Wig Stylist AT [facility] [address] 786.59 Say Goldman.Katia,FACP 536.2 078.12 Office Visit 02/19/2010 12:00p DO Not Use Wig Stylist [facility] [address] 789.09 Say M.Katia,FACP 305.53 V04.81 Office Visit 02/13/2010 2:20p DO Not Use Wig Stylist [facility] [address] 789.09 Say Goldman.Katia 783.21 786.50 304.00 Office Visit 11/28/2009 3:40p DO Not Use Wig Stylist AT Frankie Hunt M.D. 22422 784.0 [place] 783.21 Office Visit 08/01/2009 1:20p DO Not Use Wig Stylist AT [facility] Land[facility], [address] 724.2 Say M.Katia Office Visit 07/03/2009 2:00p DO Not Use Wig Stylist AT [facility], [address] 724.2 Say M.DMerline Office Visit 01/04/2009 3:00p DO Not Use Wig Stylist AT [facility], [address] 465.9 [place] Emerson 466.0 Plan of Care Future Appointment(s):02/25/2018 3:40 pm - Hema Islas NP at [facility]01/28/2018 - Hema Islas, MARAM79.641 Pain in right handNew Medication:Naproxen 500 mgF33.9 Major depressive disorder, recurrent, unspecifiedNew Medication:Citalopram Hydrobromide 20 mgComments:Start taking the Celexa daily. Take 1/2 tablet once daily for a week and then increase to a full tablet. It is very important that you keep your appointment with mental health on Friday.If at any time you feel like harming yourself or someone else it is importantReferral:[facility], Mental Health/ CounselorFollow up:3-4 uadbtH56.9 Anxiety disorder, unspecifiedNew Medication: Vistaril 25 mgComments:Use the vistaril as needed for anxiety. You can use this up to 4 times daily. This may also help with sleep.
--- OUTSIDE RECORDS SUMMARY | 2018-02-02 14:17 | XMS REPORT ---
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 Ki,PEGGY Onset: 02/05/2011 Acute hepatitis C Ayse Forte M.D.,PEGGY Onset: 01/29/2011 Inflammatory disease of liver Cheng Terrazas Inactive Ki,FACP Inactive: 02/05/2011 Family History Date Family Member(s) Problem(s) Comments Mother 37 as of 01/04/2009 Social History Type Date Description Comments Marital Status Lives With Alone Occupation [employer] Cigarette Use Current Cigarette Smoker 1 [...] M54.2 Hema HCL s mouth three 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 Tramadol 02/13 Hx Tablets 37.5-325m 21tab 1 tab tid [place] Hydrochloride/Kalyan bertha Sterling M.D. 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 11/28 Hx Tablets 10mg 5tabs as directed [...] L hours as Reeves, - needed for COMMERCIAL LOAN SPECIALIST 05/05 cough/ ness of breath Immunizations CPT Code Status Date Vaccine Lot # [id number] Given 02/05/2011 Hepatitis B Vaccine Adult Dosage [id number] Given 02/05/2011 Hepatitis A Vaccine Adult Dosage [id number] 01452 Given 01/29/2011 Influenza Virus 3Yrs & Over [id number] Given 02/19/2010 Influenza Virus 3Yrs & Over [id number] Given 02/19/2010 Influenza Virus 3Yrs & Over [id number] Vital Signs Date Vital Result Comment 01/13/2018 [...] Poc Ketone, Urine Negative Negative Poc Specific Rachel, Urine 1.020 1.010-1.030 Poc Blood, Urine Negative Negative Poc pH, Urine 8.0 5-9 Poc Protein, Urine Negative Negative Poc Urobilinogen, Urine 0.2 Negative Poc Nitrite, Urine Negative Negative Poc Leukocytes, Urine Negative Negative Poc Color, Urine Yellow Poc Clarity, Urine Clear 1 Poc Urinalysis 09/04/2017 Poc Glucose, Urine Negative Negative Poc Bilirubin, Urine Negative Negative Poc Ketone, Urine Negative Negative Poc Specific Rachel, Urine 1.025 1.010-1.030 Poc Blood, Urine Negative [...] Color Yellow Urine Appearance Clear Urine Specific Rachel 1.018 1.010-1.030 Urine pH 5.0 5-9 Urine [...] Color YELLOW Yellow Appearance-Urine CLEAR Clear Specific Rachel-Ur 1.010 1.010-1.030 Esterase-Urine NEGATIVE Negative Nitrite NEGATIVE Negative Xxgfnythqykz-[id number] NEGATIVE Negative Protein-Urine NEGATIVE Negative PH-Urine 8.0 5-9 Blood-Urine NEGATIVE Negative Ketones-Urine NEGATIVE Negative Bilirubin-Ur NEGATIVE Negative Glucose-Urine NEGATIVE Negative Laboratory test finding 08/01/2009 Syphilis IgG NON-REACTIVE Nonreactive 53 Urinalysis W/Microscopic 08/01/2009 Ua Color YELLOW Yellow Appearance-Urine TURBID Clear Specific Rachel-Ur 1.020 1.010-1.030 Esterase-Urine NEGATIVE Negative Nitrite NEGATIVE Negative Czffczrnfgdr-Lj-CFJ NEGATIVE Negative Protein-Urine NEGATIVE Negative PH-Urine 7.5 5-9 Blood-Urine NEGATIVE Negative Ketones-Urine NEGATIVE Negative Bilirubin-Ur NEGATIVE Negative Glucose-Urine NEGATIVE Negative WBC-Urine 0-5 0-5 RBC-Urine 0-5 0-2 Epith Cells-Ur RARE None Amorphous Sed-U 3+ None Urine GC/Chlamydia 07/27/2009 Chlamydia On Urine NEGATIVE Negative 54 GC On Urine NEGATIVE Negative 55 1 Grommet Machine Operator: [id number] Grommet Machine Operator: [id number] HCV Genotype, S was cancelled on 05/19/2017 at 08:32; Genotyping not performed due to inability to generate sufficient target sequence for genotype analysis. Test Performed by: [facility] [address] [place] [address] 4 Result in log IU/mL is Undetected. ADDITIONAL INFORMATION The quantification range of this assay is 15 to 100,000,000 IU/mL (1.18 log to 8.00 log IU/mL). Testing was performed using the ruy HCV test ([employer] with the ruy Lucidity ([employer])0 System. Test Performed by: [facility] - [facility] [address] [place] [address] 5 Grommet Machine Operator: [id number] Grommet Machine Operator: [id number] 7 Acute inflammation: >10.00 8 [facility] Severe Sepsis and Septic Shock Management [...] for recollect at 2310 on 07/07/16 by [id number] Cancelled. Specimen hemolyzed. Unable to perform test requested. Reorder for specimen recollection. ISAIAH was called for recollect at 2310 on 07/07/16 by [id number] Acute inflammation: >10.00 14 [facility] Severe Sepsis and Septic Shock Management [...] the CDC guidelines. 19 Test Performed by: [facility] Dpt of Lab Med and Pathology [address] [place] [address] Association Executive: Humberto Lopze III, M.D. 20 REPORTABLE DISEASE Genotype to follow Research Use Only - Hepatitis C Genotyping Test Performed by: [facility] Dpt of Lab Med and Pathology [address] [place] [address] Association Executive: Humberto Lopez III, M.D. 21 -- REFERENCE VALUE -- Not applicable Testing was done by DNA sequencing assay using the ulike HCV 5'NC Genotyping Kit. Research Use Only - Hepatitis C Genotyping Test Performed by: [facility] Dpt of Lab Med and Pathology [address] [place] [address] Association Executive: Humberto Lopez III, M.D. 22 Test Performed by: [facility] Dpt of Lab Med and Pathology [address] [place] [address] Association Executive: Humberto Lopez III, M.D. 23 High reactive sample are considered positive for HCV. 24 Result in log IU/mL=5.48 Quantification range of this assay is 43 IU/mL to 69,000,000 IU/mL (1.63 to 7.84 log IU/mL). Testing was performed by the RUY AmpliPrep/RUY TaqMan HCV Test ([employer] Test Performed by: [facility] Dpt of Lab Med and Pathology [address] [place] [address] Association Executive: Humberto Lopez III, M.D. 25 Anion gap [...] has been shown to interfere with the Jendrassik-Tuskegee method for measuring total bilirubin. Samples from [...] 0.06 ng/mL NOT SUPPORTIVE OF DIAGNOSIS OF [place] 0.06 - 0.50 ng/ml INDETERMINATE: SUGGEST SERIAL STUDIES IF CLINICALLY INDICATED. Greater than 0.5 ng/mL CONSISTENT WITH DIAGNOSIS OF [place] . 34 Lymphopenia % 35 -- REFERENCE [...] use in employment-related testing. Test Performed by: [facility] Dpt of Lab Med and Pathology [address] [place] [address] Association Executive: Humberto Lopez III, M.D. 43 This report is intended for use in clinical monitoring and management of patients. It is not intended for use in employment-related drug testing. Test Performed by: [facility] Dpt of Lab Med and Pathology [address] [place] [address] Association Executive: Humberto Lopez III, M.D. 44 TOXIC LEVELS: [...] change was based on recommendations from the [place] Diabetes Association. 49 Please note change in reference range effective 07 . 50 A metabolite of Naproxen, O-desmethylnaproxen, has been shown to interfere with the Jendrassik-Tuskegee method for measuring total bilirubin. Samples from [...] Provider CPT E/M Dx Office Visit 10/07/2017 [facility] Jesus Mojica, [address] J20.9 3:20p - Abilio Emerson Office Visit 08/07/2017 [facility] [place] [address] L03.113 3:20p - Leonid M25.531 Office Visit 06/30/2017 11:40a [facility] [place] [address] M54.2 - Leonid Office Visit 05/05/2017 1:30p [facility] Elisa Reeves, [address] [address]17[address] COMMERCIAL LOAN SPECIALIST G89.21 B19.20 Office Visit 06/20/2016 3:15p [facility] [place] [address] R10.812 [facility] Office Visit 06/17/2016 10:00a [facility] [place] [address] R10.812 [facility] R59.0 K56.1 Office Visit 06/10/2016 7:00a [facility] Thiago Johnson, 00682 K56.1 Of [facility] Office Visit 02/05/2011 10:00a DO Not Use [facility] Cheng Terrazas, 79854 070.51 Say Emerson,FACP V05.3 Office Visit 01/29/2011 9:40a DO Not Use [facility] Cheng Terrazas, 78796 573.3 Say Emerson,FACP v04.81 305.53 Office Visit 03/22/2010 8:40a DO Not Use [facility] ChengMart Terrazas, 73874 786.59 Say Emerson,FACP 536.2 078.12 Office Visit 02/19/2010 12:00p DO Not Use [facility]Mart Terrazas, 14021 789.09 Say Emerson,FACP 305.53 V04.81 Office Visit 02/13/2010 2:20p DO Not Use [facility] Frankie Hunt, 31638 789.09 Say Goldman.Katia 783.21 786.50 304.00 Office Visit 11/28/2009 3:40p DO Not Use [facility] Frankie Hunt M.D. 26061 784.0 [facility] 783.21 Office Visit 08/01/2009 1:20p DO Not Use [facility] Caren Landis, 78899 724.2 Say M.Katia Office Visit 07/03/2009 2:00p DO Not Use [facility] Caren Landis, 69562 724.2 Say M.Katia Office Visit 01/04/2009 3:00p DO Not Use [facility] Caren Landis, 01716 465.9 Auroraradha Emerson 466.0 Plan of Care 01/13/2018 - Soo Cota, N.P.M54.5 Low back painNew Therapy:Physical TherapyComments:For your back pain:I have refilled your prescriptions for Meloxicam and Cyclobenzaprine.I am referring you for physical therapy. This should help. I also encourage you to go for acupuncture and see if this helps.
[2018-02-02] MEDS ORDERED: Ibuprofen TAB* 600 MG PO ONE (14:33)
[2018-02-02] MEDS ORDERED: Acetaminophen TAB* 325 MG PO ONE (14:45)
[2018-02-02 15:18] VITALS: BP 136/83
--- NOTE | 2018-02-02 15:32 | ED ---
Upper Extremity Pain - HPI Summary HPI Summary: Patient is a 27-year-old male presenting to the ED chief complaint of right hand injury after punching a wall. He is also endorsing extreme depression due to recent news of his kids being taken from him. He denies any SI or HI. He states he would like to speak with someone on arrival, however later he states he does not need to speak with anyone. He is currently on antidepressant medications. He is requesting pain medications on arrival. He states he had an x-ray of the right hand obtained last week for also punching a wall. Endorses pain with flexion and extension. 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 - History of Current Complaint Chief Complaint: EDPsychosocial Stated Complaint: MHE/RT HAND INJURY Time Seen by Provider: 02/02/18 13:16 Hx Obtained From: Patient Mechanism Of Injury: Direct Blow Onset/Duration: Started Hours Ago Timing: Constant Severity Initially: Moderate Severity Currently: Moderate Pain Location: Hand Character: Aching Aggravating Factor(s): Movement, Lifting, Flexion, Extension Alleviating Factor(s): Rest, Ice Associated Signs & Symptoms: Positive: Swelling, Bruising Related History: Dominant Hand Right - Risk Factors Non-Orthopedic Risk Factor: Negative DVT Risk Factors: Negative Septic Arthritis Risk Factor: Negative Compartment Syndrome Risk Factors: Pain - Allergies/Home Medications Allergies/Adverse Reactions: Allergies Allergy/AdvReac Type Severity Reaction Status Date / Time fluticasone [From Flonase] Allergy Vomiting Verified 02/02/18 13:02 ketorolac [From Toradol] Allergy muscle Verified 02/02/18 13:02 spasms mold Allergy Congestion Verified 02/02/18 13:02 Penicillins Allergy Vomiting Verified 02/02/18 13:02 prednisone Allergy Vomiting Verified 02/02/18 13:02 tetanus and diphtheria Allergy Vomiting Verified 02/02/18 13:02 toxoids white vinegar Allergy Rash Uncoded 11/27/17 12:26 PMH/Surg Hx/FS Hx/Imm Hx Previously Healthy: Yes Endocrine/Hematology History: Denies: Hx Anticoagulant Therapy, Hx Diabetes, Hx Thyroid Disease, Other Endocrine/Hematological Disorders Cardiovascular History: Reports: Other Cardiovascular Problems/Disorders - FLUTTERS Denies: Hx Hypertension, Hx Pacemaker/ICD Respiratory History: Reports: Hx Chronic Bronchitis, Hx Chronic Obstructive Pulmonary Disease (COPD) Denies: Hx Asthma, Other Respiratory Problems/Disorders GI History: Reports: Hx Gastroesophageal Reflux Disease, Hx Hiatal Hernia, Other GI Disorders - hiatal hernia Denies: Hx Ulcer History: Denies: Hx Dialysis, Hx Renal Disease, Other Problems/Disorders Musculoskeletal History: Reports: Hx Orthopedic Injury - Right wrist dislocation ; Fractured left forearm; Left Patella Fx; Fx Femur;, Other Musculoskeletal History - see above Sensory History: Denies: Other Sensory Impairments Opthamlomology History: Denies: Other Sensory Impairments Neurological History: Reports: Hx Migraine, Other Neuro Impairments/Disorders - BACK INJURY 2006- MUSCLES Denies: Hx Dementia, Hx Seizures Psychiatric History: Reports: Hx Anxiety, Hx Depression, Hx Bipolar Disorder, Hx Substance Abuse - synthetic drugs 1 yr ago Denies: Hx Eating Disorder, Hx of Violent Episodes Against Others, Other Psychiatric Issues/Disorders - Surgical History Surgery Procedure, Year, and Place: 2012 orif right wrist/left jaw orif/orif left femur-knee cap - Immunization History Date of Tetanus Vaccine: Up to date Date of Influenza Vaccine: None Hx Pertussis Vaccination: No Immunizations Up to Date: Yes Infectious Disease History: No Infectious Disease History: Denies: Hx Clostridium Difficile, Hx Hepatitis, Hx Human Immunodeficiency Virus (HIV), Hx of Known/Suspected MRSA - has had staph on his face, Hx Shingles , Hx Tuberculosis, Hx Known/Suspected VRE, Hx Known/Suspected VRSA, History Other Infectious Disease, Traveled Outside the [place] in Last 30 Days - Family History Known Family History: Positive: Cardiac Disease, Hypertension, Diabetes, Other - thyroid disease - Social History Occupation: Unemployed Lives: With Family Alcohol Use: 2 day tinoco 01/30/18 Hx Substance Use: Yes Substance Use Type: Reports: 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 Hx Tobacco Use: Yes Smoking Status (MU): Heavy Every Day Tobacco Smoker Type: Cigarettes, eCigarettes Amount Used/How Often: 1/4 ppd Length of Time of Smoking/Using Tobacco: 14 years Have You Smoked in the Last Year: No Review of Systems Negative: Fever, Chills, Fatigue, Skin Diaphoresis Negative: Palpitations, Chest Pain Negative: Shortness Of Breath, Cough Positive: no symptoms reported, see HPI Positive: Arthralgia - right MCP joint over the ring and little finger discomfort Positive: Bruising - right hand Neurological: Negative All Other Systems Reviewed And Are Negative: Yes Physical Exam Triage Information Reviewed: Yes Vital Signs On Initial Exam: Initial Vitals Temp Pulse Resp BP Pulse Ox 98.6 F 95 16 156/96 96 02/02/18 12:52 02/02/18 12:52 02/02/18 12:52 02/02/18 12:52 02/02/18 12:52 Vital Signs Reviewed: Yes Appearance: Positive: Well-Appearing, Well-Nourished Skin: Positive: Warm, Skin Color Reflects Adequate Perfusion, Other - Right hand slight ecchymosis to the ring and little finger Head/Face: Positive: Normal Head/Face Inspection Eyes: Positive: EOMI, KALE, Conjunctiva Clear Neck: Positive: Supple, No Lymphadenopathy Respiratory/Lung Sounds: Positive: Clear to Auscultation, Breath Sounds Present Cardiovascular: Positive: RRR, Pulses are Symmetrical in both Upper and Lower Extremities Musculoskeletal: Positive: Pain @ - Right hand pen Neurological: Positive: Sensory/Motor Intact, Alert, Oriented to Person Place, Time, Speech Normal Psychiatric: Positive: Depressed, Other - Denies SI or HI Diagnostics - Vital Signs Vital Signs Temp Pulse Resp BP Pulse Ox 02/02/18 15:17 99.4 F 105 16 136/83 97 02/02/18 12:52 98.6 F 95 16 156/96 96 - Laboratory Lab Statement: Any lab studies that have been ordered have been reviewed, and results considered in the medical decision making process. Course/Dx - Course Course Of Treatment: During the course of treatment, the patient states he would like to be evaluated for mental health although he denies any SI or HI. He later states he does not need this and he would prefer to go home. He does endorse some pain to the right hand most notably over the MCP joints of the ring finger and little finger. X-ray obtained which shows no acute osseous injury, however postoperative changes are noted. I have offered ibuprofen, however he declines this and is requesting stronger pain medication. I stated I would not give him stronger pain medication at this time and he states he would like to leave. He is discharged home with a hand contusion and will follow-up with his PCP as scheduled next week. - Diagnoses Differential Diagnosis/HQI/PQRI: Positive: Fracture (Open), Fracture (Closed), Strain, Sprain Provider Diagnoses: Contusion of right hand, Depression Discharge - Sign-Out/Discharge Documenting (check all that apply): Patient Departure - Discharge Plan Condition: Stable Disposition: HOME Patient Education Materials: Contusion in Adults (ED) Referrals: Cheng Terrazas MD [Primary Care Provider] - Additional Instructions: Ice to the area Ibuprofen 600mg three times daily - Billing Disposition and Condition Condition: STABLE Disposition: Home
== END 2018-02-02 15:17 | disposition home or self-care (01) ==
LOC: ED 12:50
DX: S60.221A Contusion of right hand, initial encounter (principal); W22.09XA Striking against other stationary object, initial encounter; Y92.9 Unspecified place or not applicable; F32.9 Major depressive disorder, single episode, unspecified; Z88.5 Allergy status to narcotic agent; Z88.0 Allergy status to penicillin; Z88.7 Allergy status to serum and vaccine; Z88.8 Allergy status to other drugs, medicaments and biological substances; F17.210 Nicotine dependence, cigarettes, uncomplicated
CPT/HCPCS: 99282; A9270-GY

== ENCOUNTER 2018-03-28 16:43 | Emergency (ER) | payer OTHER ==
[2018-03-28] MEDS ORDERED: Nicotine Inhaler* 10 MG AMP INH PRN (17:07)
[2018-03-28] MEDS ORDERED: ALPRAZolam TAB* 0.25 MG PO ONE ×2 (17:07→19:10)
--- NOTE | 2018-03-28 17:12 | ED ---
Psychiatric Complaint - HPI Summary HPI Summary: Pt is a 27 y/o male who presents to the ED c/o anxiety and depression. He was put on 20 mg QD of Citalopram, 30 pills filled on 03/12/18, and 25 mg of Hydroxyzine, 90 pills filled on 03/13/18. He states the medications at first helped and he felt less depressed. A few weeks into using these medications, he began to feel depressed again. Pt reports feeling aggressive and cut his leg 2 weeks ago. He stopped taking the Citalopram because it made him feel worse, and stopped using the Hydroxyzine because it stopped working. He also has had recent stress, within his mothers anniversary and his girlfriend leaving him for somebody else. He denies any current SI, but has self-harm ideation without a plan and feels the world would be better off without him. When asked if he has HI, he says yes and no because he feels strongly about his ex- girlfriends new SO. Pt also reports sleep disturbance. He wants a MHE, and requests Xanax for his current anxiety. PMHx bipolar disorder, depression, anxiety, and substance abuse. He is accompanied by his friend. Pt reports heavy smoking and marijuana use, and he stopped drinking one week ago. He states his depression is worse when he stops using marijuana. Pts mother by suicide. - History Of Current Complaint Chief Complaint: EDMentalHealth Time Seen by Provider: 03/28/18 17:00 Hx Obtained From: Patient Onset/Duration: Gradual Onset, Still Present Timing: Constant Severity Initially: Moderate Severity Currently: Moderate Character: Depressed, Anxious, Angry - aggressive Aggravating Factor(s): Recent Stress - anniversary of his mother's , girlfriend with another SO, Other - New medications - citalopram and hydroxyzine Alleviating Factor(s): Nothing Associated Signs And Symptoms: Positive: Sleep Disturbance Related History: Positive For: Prior Psychiatric Issues Has Suicidal: Denies: Thoughts Has Homicidal: Reports: Thoughts. Denies: With A Plan - Allergies/Home Medications Allergies/Adverse Reactions: Allergies Allergy/AdvReac Type Severity Reaction Status Date / Time fluticasone [From Flonase] Allergy Vomiting Verified 03/28/18 16:52 ketorolac [From Toradol] Allergy muscle Verified 03/28/18 16:52 spasms mold Allergy Congestion Verified 03/28/18 16:52 Penicillins Allergy Vomiting Verified 03/28/18 16:52 prednisone Allergy Vomiting Verified 03/28/18 16:52 tetanus and diphtheria Allergy Vomiting Verified 03/28/18 16:52 toxoids white vinegar Allergy Rash Uncoded 03/28/18 16:52 Home Medications: Home Medications hydrOXYzine HCl [Hydroxyzine HCl] 50 mg PO DAILY 03/28/18 [History Confirmed ] PMH/Surg Hx/FS Hx/Imm Hx Previously Healthy: No Endocrine/Hematology History: Denies: Hx Anticoagulant Therapy, Hx Diabetes, Hx Thyroid Disease, Other Endocrine/Hematological Disorders Cardiovascular History: Denies: Hx Hypertension, Hx Pacemaker/ICD Respiratory History: Reports: Hx Chronic Bronchitis, Hx Chronic Obstructive Pulmonary Disease (COPD) Denies: Hx Asthma, Other Respiratory Problems/Disorders GI History: Reports: Hx Gastroesophageal Reflux Disease, Hx Hiatal Hernia Denies: Hx Ulcer History: Denies: Hx Dialysis, Hx Renal Disease, Other Problems/Disorders Musculoskeletal History: Reports: Hx Orthopedic Injury - Right wrist dislocation ; Fractured left forearm; Left Patella Fx; Fx Femur; Sensory History: Denies: Other Sensory Impairments Opthamlomology History: Denies: Other Sensory Impairments Neurological History: Reports: Hx Migraine, Other Neuro Impairments/Disorders - BACK INJURY 2006 Denies: Hx Dementia, Hx Seizures Psychiatric History: Reports: Hx Anxiety, Hx Depression, Hx Bipolar Disorder, Hx Substance Abuse - synthetic drugs 1 yr ago Denies: Hx Eating Disorder, Hx of Violent Episodes Against Others, Other Psychiatric Issues/Disorders - Surgical History Surgery Procedure, Year, and Place: 2012 orif right wrist/left jaw orif/orif left femur-knee cap - Immunization History Date of Tetanus Vaccine: Up to date Date of Influenza Vaccine: None Infectious Disease History: No Infectious Disease History: Denies: Hx Clostridium Difficile, Hx Hepatitis, Hx Human Immunodeficiency Virus (HIV), Hx of Known/Suspected MRSA - has had staph on his face, Hx Shingles , Hx Tuberculosis, Hx Known/Suspected VRE, Hx Known/Suspected VRSA, History Other Infectious Disease, Traveled Outside the [place] in Last 30 Days - Family History Known Family History: Positive: Cardiac Disease, Hypertension, Diabetes, Other - thyroid disease, depression, suicide - Social History Occupation: Employed Full-time - [employer] Lives: Dormitory/Roommates Alcohol Use: None - quit 1 week ago Hx Substance Use: Yes Substance Use Type: Reports: Marijuana Hx Tobacco Use: Yes Smoking Status (MU): Heavy Every Day Tobacco Smoker Type: Cigarettes, eCigarettes Amount Used/How Often: 1/4 ppd Length of Time of Smoking/Using Tobacco: 14 years Have You Smoked in the Last Year: No Review of Systems Positive: Other - sleep disturbance Cardiovascular: Negative Respiratory: Negative Gastrointestinal: Negative Positive: no symptoms reported Positive: Other - self-inflected cuts 2 weeks ago, left medial ankle Neurological: Negative Psychological: Other - HI, NEGATIVE: SI Positive: Anxious, Depressed All Other Systems Reviewed And Are Negative: Yes Physical Exam - Summary Physical Exam Summary: Appearance: Well-appearing, no pain distress, well-nourished Skin: Warm, color reflects adequate perfusion, dry, superficial cutting meza on medial left ankle with scabs and healing Head: Normal Head/Face inspection, atraumatic Eyes: Conjunctiva clear ENT: Normal inspection Neck: Supple, no nodes, no JVD Respiratory: Lungs clear, normal breath sounds, no respiratory distress Cardio: RRR, No murmur, pulses normal, brisk capillary refill Abdomen: Soft, nontender Bowel sounds: Present Musculoskeletal: Strength Intact/ROM intact, no calf tenderness, no edema. Psychological: Anxious, cooperative Neuro: Alert, muscle tone normal, no focal deficit Triage Information Reviewed: Yes Vital Signs On Initial Exam: Initial Vitals Temp Pulse Resp BP Pulse Ox 99.7 F 105 16 125/82 100 03/28/18 16:53 03/28/18 16:53 03/28/18 16:53 03/28/18 16:53 03/28/18 16:53 Vital Signs Reviewed: Yes Diagnostics - Vital Signs Vital Signs Temp Pulse Resp BP Pulse Ox 03/28/18 16:53 99.7 F 105 16 125/82 100 - Laboratory Result Diagrams: 03/28/18 17:18 03/28/18 17:18 Lab Statement: Any lab studies that have been ordered have been reviewed, and results considered in the medical decision making process. Re-Evaluation - Re-Evaluation First Eval Re-Evaluation Time: 18:07 Change: Unchanged Comment: Pt is medically cleared for a MHE. Second Eval Re-Evaluation Time: 20:15 Change: Improved Comment: Pt is calm, cooperative, denies SI/HI. Requests sandwich. Agrees with discharge. Received Xanax 0.25mg x 2. Course/Dx - Course Course Of Treatment: Pt is a 27 y/o male who presents to the ED c/o anxiety and depression. He was put on 20 mg QD of Citalopram, 30 pills filled on 03/12/18, and 25 mg of Hydroxyzine, 90 pills filled on 03/13/18. He states the medications at first helped and he felt less depressed. A few weeks into using these medications, he began to feel depressed again. Pt reports feeling aggressive and cut his leg 2 weeks ago. He stopped taking the Citalopram because it made him feel worse, and stopped using the Hydroxyzine because it stopped working. He denies any current SI, but has self-harm ideation without a plan and feels the world would be better off without him. Pt also reports sleep disturbance. PMHx bipolar disorder, depression, anxiety, and substance abuse. A physical exam revealed anxious, and cut meza on medial left ankle with healing. Bloodwork and UA revealed no acute abnormalitis. Urine tox shows cannabinoids. Dr. Carrasco diagnosed the pt with unspecified depressive disorder. Pt is discharged home for outpatient follow up with discharge instructions provided my mental health team. - Differential Dx/Clinical Impression Differential Diagnosis/HQI/PQRI: Positive: Anxiety, Bipolar Disorder, Depression , Homicidal Ideation, Suicidal Ideation Provider Diagnosis: Depressive disorder - Physician Notifications Discussed Care Of Patient With: Stevie Carrasco Time Discussed With Above Provider: 19:30 Instructed by Provider To: Other - Discharge pt, diagnosis unspecified depressive disorder. Discharge - Sign-Out/Discharge Documenting (check all that apply): Patient Departure - Discharge - Discharge Plan Condition: Stable Disposition: HOME Patient Education Materials: Depression (ED) Referrals: Cheng Terrazas MD [Primary Care Provider] - Additional Instructions: RETURN TO THE ED WITH ANY NEW OR WORSENING SYMPTOMS. Instructions to copy and paste for Adult patients: Per completion of a mental health evaluation, you are cleared for release and do not require inpatient psychiatric hospitalization at this time. Please go to nearest emergency room or call 911 if safety concerns arise or condition worsens. Important Phone Numbers: [facility] ph:[phone] Su[facility] Prevention [facility] Crisis Services ph:[phone] National Suicide Prevention Lifeline ph:[phone]- TALK (6405) [facility] ph:[phone] Alcoholics Anonymous ph: [facility] ph:[phone] [employer] ph:[phone] Recommendation: Call [facility] on Friday at to commence intake for therapy and medication management. - Billing Disposition and Condition Condition: STABLE Disposition: Home - Attestation Statements Document Initiated by Scribe: Yes Documenting Scribe: Talita Rosales Provider For Whom Scribe is Documenting (Include Credential): Trinh Smyth MD Scribe Attestation: Talita Brewer scribed for Trinh Smyth MD on 03/28/18 at 2016. Scribe Documentation Reviewed: Yes Provider Attestation: The documentation as recorded by the Talita cox accurately reflects the service I personally performed and the decisions made by Trinh wei MD Status of Scribe Document: Viewed
[2018-03-28 17:24] LABS: ABS Basophils 0.1 10^3/ul (0-0.2); ABS Eosinophils 0.2 10^3/ul (0-0.6); ABS Lymphocytes 1.8 10^3/ul (1.0-4.8); ABS Monocytes 0.7 10^3/ul (0-0.8); ABS Neutrophils 7.4 10^3/ul (1.5-7.7); ABS Nucleated RBC 0 10^3/ul; Eosinophil % 1.9 %; Hematocrit 46 % (42-52); Hemoglobin 15.5 g/dl (14.0-18.0); Lymphocyte % 17.6 %; Mean Corpuscular HGB Conc 34 g/dl (31-36); Mean Corpuscular Hemoglobin 31 pg (27-31); Mean Corpuscular Volume 92 fL (80-94); Nucleated Red Blood Cells % 0; Platelet Count 187 10^3/ul (150-450); Red Blood Count 4.97 10^6/ul (4.00-5.40); Red Cell Distribution Width 14 % (10.5-15); White Blood Count 10.1 10^3/ul (3.5-10.8)
[2018-03-28 17:39] LABS: ALT 25 U/L (7-52); AST 18 U/L (13-39); Albumin 4.6 g/dL (3.2-5.2); Albumin/Globulin Ratio 1.8 (1-3); Alkaline Phosphatase 75 U/L (34-104); Anion Gap 7 mmol/L (2-11); BUN/Creatinine Ratio 13.5 (8-20); Blood Urea Nitrogen 12 mg/dL (6-24); CO2 Carbon Dioxide 28 mmol/L (22-32); Calcium 9.8 mg/dL (8.6-10.3); Chloride 105 mmol/L (101-111); Creatine Kinase 113 U/L (10-223); EGFR Non-African American 101.8 (>60); Globulin 2.6 g/dL (2-4); Glucose 107 mg/dL (70-100); Potassium 4.7 mmol/L (3.5-5.0); Sodium 140 mmol/L (135-145); Total Protein 7.2 g/dL (6.4-8.9)
[2018-03-28 17:41] LABS: Urine Appearance Cloudy; Urine Bilirubin Negative (Negative); Urine Blood Negative (Negative); Urine Color Yellow; Urine Glucose Negative (Negative); Urine Ketones Negative (Negative); Urine Nitrite Negative (Negative); Urine Protein Negative (Negative); Urine Specific Gravity 1.019 (1.010-1.030); Urine Urobilinogen Negative (Negative)
[2018-03-28 17:49] LABS: Acetaminophen < 15 mcg/mL; Alcohol < 10 mg/dL (<10); Salicylate < 2.50 mg/dL (<30)
[2018-03-28 18:02] LABS: Barbiturates Urine Screen None Detected (None Detect); Benzodiazepine Urine Screen None Detected (None Detect); Urine Cannabinoids Screen Presumptive Positive (None Detect)
[2018-03-28 18:04] LABS: TSH (Thyroid Stimulating Horm) 0.51 mcIU/mL (0.34-5.60)
[2018-03-28 20:20] VITALS: BP 0/0
== END 2018-03-28 20:19 | disposition home or self-care (01) ==
LOC: ED 16:43
DX: F32.9 Major depressive disorder, single episode, unspecified (principal); Z88.5 Allergy status to narcotic agent; Z88.0 Allergy status to penicillin; Z88.7 Allergy status to serum and vaccine; Z88.8 Allergy status to other drugs, medicaments and biological substances; F17.210 Nicotine dependence, cigarettes, uncomplicated
CPT/HCPCS: 36415; 80053; 80307; 80320; 80329; 81003; 82550; 84443; 85025; 99284; A9270-GY; G0480

== ENCOUNTER 2018-04-24 12:40 | Emergency (ER) | payer OTHER ==
[2018-04-24 12:50] VITALS: BP 115/82
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
[2018-04-24] MEDS ORDERED: Ibuprofen TAB* 600 MG PO ONE (14:30)
== END 2018-04-24 15:07 | disposition home or self-care (01) ==
LOC: UCEAST 12:40
DX: S00.83XA Contusion of other part of head, initial encounter (principal); S70.02XA Contusion of left hip, initial encounter; W20.8XXA Other cause of strike by thrown, projected or falling object, initial encounter; Y92.003 Bedroom of unspecified non-institutional (private) residence as the place of occurrence of the external cause; Z88.5 Allergy status to narcotic agent; Z88.0 Allergy status to penicillin; Z88.7 Allergy status to serum and vaccine; Z88.8 Allergy status to other drugs, medicaments and biological substances; Z87.891 Personal history of nicotine dependence
CPT/HCPCS: 99211; A9270-GY; G0463

== ENCOUNTER 2018-08-05 12:43 | Emergency (ER) | payer OTHER ==
[2018-08-05 12:51] VITALS: BP 134/100
--- NOTE | 2018-08-05 12:57 | UC ---
Respiratory Complaint HPI - HPI Summary HPI Summary: 27-year-old male with history of asthma presents with complaints of 4 days of chest congestion and productive cough. Has noted occasional wheezing. States he was recently homeless and without a primary care provider and has been without his albuterol inhaler for a while now. He is a smoker. Denies fever, chills, nasal congestion, sore throat, chest pain, or shortness of breath. - History of Current Complaint Chief Complaint: UCRespiratory Stated Complaint: COUGH Time Seen by Provider: 08/05/18 12:54 Hx Obtained From: Patient Pain Intensity: 0 - Allergies/Home Medications Allergies/Adverse Reactions: Allergies Allergy/AdvReac Type Severity Reaction Status Date / Time fluticasone [From Flonase] Allergy Vomiting Verified 08/05/18 12:51 ketorolac [From Toradol] Allergy muscle Verified 08/05/18 12:51 spasms mold Allergy Congestion Verified 08/05/18 12:51 Penicillins Allergy Vomiting Verified 08/05/18 12:51 prednisone Allergy Vomiting Verified 08/05/18 12:51 tetanus and diphtheria Allergy Vomiting Verified 08/05/18 12:51 toxoids white vinegar Allergy Rash Uncoded 08/05/18 12:51 PMH/Surg Hx/FS Hx/Imm Hx Previously Healthy: Yes Respiratory History: Asthma Other History Of: Hepatitis C Negative For: Anticoagulant Therapy - Surgical History Surgical History: Yes Surgery Procedure, Year, and Place: 2012 orif right wrist/left jaw orif/orif left femur-knee cap - Family History Known Family History: Positive: Cardiac Disease, Hypertension, Diabetes, Other - thyroid disease, depression, suicide - Social History Occupation: Employed Full-time Lives: With Family Alcohol Use: None Substance Use Type: 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 Smoking Status (MU): Heavy Every Day Tobacco Smoker Type: Cigarettes, eCigarettes Amount Used/How Often: 1/4 ppd Length of Time of Smoking/Using Tobacco: 14 years Have You Smoked in the Last Year: No Household Exposure Type: Cigarettes - Immunization History Most Recent Influenza Vaccination: never Most Recent Tetanus Shot: no, allergic Review of Systems All Other Systems Reviewed And Are Negative: Yes Constitutional: Negative: Fever, Chills Eyes: Negative: Drainage, Eye Redness ENT: Negative: Sore Throat, Ear Ache, Nasal Discharge, Sinus Congestion, Sinus Pain/Tenderness Respiratory: Positive: Cough. Negative: Shortness Of Breath Cardiovascular: Negative: Palpitations, Chest Pain Gastrointestinal: Negative: Abdominal Pain, Vomiting, Diarrhea, Nausea Genitourinary: Positive: Negative Musculoskeletal: Positive: Negative Neurological: Positive: Negative Is Patient Immunocompromised?: No Physical Exam - Summary Physical Exam Summary: GENERAL APPEARANCE: Well developed, well nourished, alert and cooperative, and appears to be in no acute distress. EYES: Conjunctiva clear. No drainage. EARS: External auditory canals and tympanic membranes clear, hearing grossly intact. NOSE: No nasal discharge. THROAT: Pharynx normal. No tonsilar inflammation, swelling, exudate, or lesions. Uvula midline. NECK: Neck supple, non-tender without lymphadenopathy. CARDIAC: Normal S1 and S2. No S3, S4 or murmurs. Rhythm is regular. There is no peripheral edema, cyanosis or pallor. Extremities are warm and well perfused. Capillary refill is less than 2 seconds. Peripheral pulses intact. LUNGS: Clear to auscultation without rales, rhonchi, wheezing or diminished breath sounds. Cough not observed. ABDOMEN: Positive bowel sounds. Soft, nondistended, nontender. No guarding or rebound. No masses or hepatosplenomegally. MUSKULOSKELETAL: ROM intact to all extremities. No joint erythema or tenderness. Normal muscular development. Normal gait. SKIN: Skin normal color, texture and turgor with no lesions or eruptions. Triage Information Reviewed: Yes Vital Signs: Initial Vital Signs Temp 98.6 F 08/05/18 12:47 Pulse 91 08/05/18 12:47 Resp 18 08/05/18 12:47 BP 134/100 08/05/18 12:47 Pulse Ox 100 08/05/18 12:47 Vital Signs Reviewed: Yes Respiratory Course/Dx - Course Course Of Treatment: 27-year-old male with history of asthma presents with complaints of 4 days of chest congestion and productive cough. Has noted occasional wheezing. States he was recently homeless and without a primary care provider and has been without his albuterol inhaler for a while now. He is a smoker. Denies fever, chills, nasal congestion, sore throat, chest pain, or shortness of breath. Afebrile. Mildly hypertensive otherwise vital signs stable. Exam was overall unremarkable. We'll treat conservatively for an acute bronchitis including Tessalon Perles one capsule every 8 hours as needed for cough. I will provide him with a prescription for an albuterol inhaler 2 puffs every 4-6 hours as needed for wheezing or shortness of breath. He is to follow-up with his primary care provider in 3-5 days if symptoms do not improve. Anticipatory guidance and warning symptoms are reviewed with the patient. Verbalizes understanding and agrees to plan of care. - Differential Dx/Diagnosis Differential Diagnosis/HQI/PQRI: Bronchitis, Influenza, Lower Resp Infection, Other - URI Provider Diagnosis: Acute bronchitis, Elevated blood pressure reading Discharge - Sign-Out/Discharge Documenting (check all that apply): Patient Departure All imaging exams completed and their final reports reviewed: No Studies - Discharge Plan Condition: Stable Disposition: HOME Prescriptions: Albuterol HFA INHALER* [Ventolin HFA Inhaler*] 2 puff INH Q4H PRN #1 mdi PRN Reason: Sob/Wheezing Benzonatate CAP* [Tessalon 100 MG CAP*] 100 mg PO TID PRN #30 cap PRN Reason: Cough Patient Education Materials: Acute Bronchitis (ED) Forms: *Work Release Referrals: Cheng Terrazas MD [Primary Care Provider] - 3 Days Additional Instructions: Your history and exam are consistent with acute bronchitis which is most often caused by a viral infection. Viral infections do not respond to antibiotics and are limited to the treatment of symptoms. Viral infections typically run their course in 7-10 days. Be aware that the cough with bronchitis may persist for 2-3 weeks even if other symptoms have improved. Get plenty of rest. Drink plenty of fluids. Run a cool mist humidifier in your room at night. Take over the counter acetaminophen (Tylenol) or ibuprofen (Advil, Motrin) according to directions as needed for pain or fever. Take Tessalon Perles 1 cap every 8 hours as needed for cough. Use the albuterol inhaler 2 puffs every 4-6 hours as needed for shortness of breath or wheezing. Follow up with your primary care provider in 3-5 days if symptoms do not improve. Your blood pressure was slightly elevated today in the clinic. It is recommended that you this rechecked by her primary care provider within the next 4 weeks. Seek immediate medical attention in the emergency room if you have fever greater than 100.5 F despite taking acetaminophen or ibuprofen, have chest pain , difficulty breathing, or have any worsening of symptoms. - Billing Disposition and Condition Condition: STABLE Disposition: Home
== END 2018-08-05 13:17 | disposition home or self-care (01) ==
LOC: UCEAST 12:43
DX: J20.9 Acute bronchitis, unspecified (principal); R03.0 Elevated blood-pressure reading, without diagnosis of hypertension; J45.909 Unspecified asthma, uncomplicated; Z88.5 Allergy status to narcotic agent; Z88.0 Allergy status to penicillin; Z88.8 Allergy status to other drugs, medicaments and biological substances; F17.210 Nicotine dependence, cigarettes, uncomplicated
CPT/HCPCS: 99212; G0463

== ENCOUNTER 2019-01-25 15:49 | Emergency (ER) | payer OTHER ==
[2019-01-25 16:29] VITALS: BP 116/78
[2019-01-25] MEDS ORDERED: Ibuprofen TAB* 600 MG PO ONE (17:00)
--- NOTE | 2019-01-25 17:06 | UC ---
Back Pain HPI - HPI Summary HPI Summary: 28-year-old male who started experiencing low back pain yesterday which has progressively worsened. He denies any saddle anesthesia denies any numbness or tingling in his extremities. He does carry a very heavy backpack normally. He does not recall any specific injury. He can replicate the pain with movement. He denies any urinary symptoms. - History of Current Complaint Chief Complaint: UCBackPain Stated Complaint: LOWER BACK PAIN Time Seen by Provider: 01/25/19 16:43 Hx Obtained From: Patient Onset/Duration: Gradual Onset Timing: Constant Severity Initially: Mild Severity Currently: Moderate Pain Intensity: 9 Back Pain: Is Diffuse - Diffuse across lower back. Character: Dull, Aching Aggravating Factor(s): Movement, Lifting, Bending Alleviating Factor(s): Nothing Associated Signs And Symptoms: Positive: Negative. Negative: Swelling, Redness , Bruising, Fever, Weakness, Numbness, Tingling, Abdominal Pain, Flank Pain, Bladder Incontinence, Bowel Incontinence, Pain with Weight Bearing - Allergies/Home Medications Allergies/Adverse Reactions: Allergies Allergy/AdvReac Type Severity Reaction Status Date / Time fluticasone [From Flonase] Allergy Vomiting Verified 01/25/19 16:29 ketorolac [From Toradol] Allergy muscle Verified 01/25/19 16:29 spasms mold Allergy Congestion Verified 01/25/19 16:29 Penicillins Allergy Vomiting Verified 01/25/19 16:29 prednisone Allergy Vomiting Verified 01/25/19 16:29 tetanus and diphtheria Allergy Vomiting Verified 01/25/19 16:29 toxoids white vinegar Allergy Rash Uncoded 01/25/19 16:29 Home Medications: Home Medications Naproxen Sodium [Aleve] 440 mg PO ONCE PRN 01/25/19 [History Confirmed 01/25/19] PMH/Surg Hx/FS Hx/Imm Hx Previously Healthy: Yes Cardiovascular History: Hypertension Respiratory History: COPD Other History Of: Hepatitis C Negative For: Anticoagulant Therapy - Surgical History Surgical History: Yes Surgery Procedure, Year, and Place: 2012 orif right wrist/left jaw orif/orif left femur-knee cap - Family History Known Family History: Positive: Cardiac Disease, Hypertension, Diabetes, Other - thyroid disease, depression, suicide - Social History Occupation: Unemployed Alcohol Use: Occasionally Substance Use Type: 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 pt states no more Smoking Status (MU): Heavy Every Day Tobacco Smoker Type: Cigarettes, eCigarettes Amount Used/How Often: 1/2 ppd and vapes Length of Time of Smoking/Using Tobacco: 14 years Have You Smoked in the Last Year: No Household Exposure Type: Cigarettes - Immunization History Most Recent Influenza Vaccination: never Most Recent Tetanus Shot: no, allergic Review of Systems All Other Systems Reviewed And Are Negative: Yes Musculoskeletal: Positive: Other: - Pain across lower back more with movement. Is Patient Immunocompromised?: No Physical Exam Triage Information Reviewed: Yes Appearance: Well-Appearing, No Pain Distress, Well-Nourished, Other: - Patient appears very tired however he states he just recently moved from [place] , he went through a breakup and is looking for a job and he states he is totally exhausted. Vital Signs: Initial Vital Signs Temp 98.7 F 01/25/19 16:25 Pulse 104 01/25/19 16:25 Resp 18 01/25/19 16:25 BP 116/78 01/25/19 16:25 Pulse Ox 100 01/25/19 16:25 Vital Signs Reviewed: Yes Eyes: Positive: Conjunctiva Clear ENT: Positive: Hearing grossly normal Respiratory: Positive: Chest non-tender, Lungs clear, Normal breath sounds, No respiratory distress, No accessory muscle use Cardiovascular: Positive: RRR, No Murmur, Pulses Normal, Brisk Capillary Refill Abdomen Description: Positive: Nontender, No Organomegaly, Soft. Negative: CVA Tenderness (R), CVA Tenderness (L), Distended, Guarding, Hepatomegaly, McBurney' s Point Tenderness, Splenomegaly Bowel Sounds: Positive: Present Musculoskeletal Exam: Normal Musculoskeletal: Positive: Other: - Patient has mild pain on palpation across the paraspinal muscles of the lower back. He has good range of motion but he does move slowly because of the back pain. Neurological Exam: Normal Psychological Exam: Normal Skin Exam: Normal Skin: Positive: Other - No bruising, erythema, deformity or swelling. Back Pain Course/Dx - Course Course Of Treatment: Urinalysis: Negative I believe this is a mildly ill low back strain. Patient is to avoid carrying his heavy backpack. He is to follow-up with his primary care provider if no improvement in 3 or 4 days. - Differential Dx/Diagnosis Provider Diagnosis: Low back strain Discharge ED - Sign-Out/Discharge Documenting (check all that apply): Patient Departure All imaging exams completed and their final reports reviewed: No Studies - Discharge Plan Condition: Fair Disposition: HOME Prescriptions: Cyclobenzaprine TAB* [Flexeril 10 MG TAB*] 10 mg PO TID PRN #15 tab PRN Reason: Pain - Mild Ibuprofen TAB* [Motrin TAB* 600 MG] 600 mg PO Q8H PRN #21 tab PRN Reason: Pain - Mild Patient Education Materials: Low Back Strain (ED) Referrals: Cheng Terrazas MD [Primary Care Provider] - Additional Instructions: Apply heat to the sore area. May take Tylenol every 4 hours and alternate with Motrin every 8 hours. Do not operate machinery, drink alcohol or drive while taking the muscle relaxant. Definite follow-up with your primary care provider in 3 or 4 days if no improvement. Avoid movements that cause pain. - Billing Disposition and Condition Condition: FAIR Disposition: Home
== END 2019-01-25 17:47 | disposition home or self-care (01) ==
LOC: UCEAST 15:49
DX: S39.012A Strain of muscle, fascia and tendon of lower back, initial encounter (principal); I10 Essential (primary) hypertension; F17.210 Nicotine dependence, cigarettes, uncomplicated; J44.9 Chronic obstructive pulmonary disease, unspecified; Z88.8 Allergy status to other drugs, medicaments and biological substances; Z88.0 Allergy status to penicillin; Z91.09 Other allergy status, other than to drugs and biological substances; Z91.018 Allergy to other foods; X50.0XXA Overexertion from strenuous movement or load, initial encounter; Y92.9 Unspecified place or not applicable
CPT/HCPCS: 81003; 99212; A9270-GY; G0463

== ENCOUNTER 2019-04-20 16:50 | Emergency (ER) | payer OTHER ==
--- NOTE | 2019-04-20 17:18 | ED ---
Influenza-Like Illness - HPI Summary HPI Summary: This pt is a 28 y/o male presenting to [facility] c/o flu like symptoms for the past 4 days. Pt reports his symptoms include nausea, vomiting, chills, subjective fevers, headache, myalgia, productive cough. Per significant other, when pt sleeps he feels hot to the touch but is clammy and diaphoretic. Pt took Tylenol [employer] with mild relief. Pt states he works at [employer] and has sick contacts there. He admits to tobacco use, occasional alcohol use, marijuana use. - History of Current Complaint Chief Complaint: EDFluSymptoms Time Seen by Provider: 04/20/19 17:07 Hx Obtained From: Patient Onset/Duration: Lasting Days - 4, Still Present Severity: Moderate Associated Signs & Symptoms: Fever, F/C, Myalgia, Cough, Headache, Vomiting - Allergy/Home Medications Allergies/Adverse Reactions: Allergies Allergy/AdvReac Type Severity Reaction Status Date / Time fluticasone [From Flonase] Allergy Vomiting Verified 04/20/19 16:55 ketorolac [From Toradol] Allergy muscle Verified 04/20/19 16:55 spasms mold Allergy Congestion Verified 04/20/19 16:55 Penicillins Allergy Vomiting Verified 04/20/19 16:55 prednisone Allergy Vomiting Verified 04/20/19 16:55 tetanus and diphtheria Allergy Vomiting Verified 04/20/19 16:55 toxoids white vinegar Allergy Rash Uncoded 04/20/19 16:55 PMH/Surg Hx/FS Hx/Imm Hx Endocrine/Hematology History: Denies: Hx Anticoagulant Therapy, Hx Diabetes, Hx Thyroid Disease, Other Endocrine/Hematological Disorders Cardiovascular History: Reports: Hx Hypertension - not on meds, Other Cardiovascular Problems/Disorders - FLUTTERS Denies: Hx Pacemaker/ICD Respiratory History: Reports: Hx Chronic Bronchitis, Hx Chronic Obstructive Pulmonary Disease (COPD) Denies: Hx Asthma, Other Respiratory Problems/Disorders GI History: Reports: Hx Gastroesophageal Reflux Disease, Hx Hiatal Hernia, Other GI Disorders - hiatal hernia Denies: Hx Ulcer History: Denies: Hx Dialysis, Hx Renal Disease, Other Problems/Disorders Musculoskeletal History: Reports: Hx Orthopedic Injury - Right wrist dislocation ; Fractured left forearm; Left Patella Fx; Fx Femur;, Other Musculoskeletal History - see above Sensory History: Denies: Other Sensory Impairments Opthamlomology History: Denies: Other Sensory Impairments Neurological History: Reports: Hx Migraine, Other Neuro Impairments/Disorders - BACK INJURY 2006 Denies: Hx Dementia, Hx Seizures Psychiatric History: Reports: Hx Anxiety, Hx Depression, Hx Bipolar Disorder, Hx Substance Abuse - synthetic drugs 1 yr ago Denies: Hx Eating Disorder, Hx of Violent Episodes Against Others, Other Psychiatric Issues/Disorders - Surgical History Surgery Procedure, Year, and Place: 2012 orif right wrist/left jaw orif/orif left femur-knee cap - Immunization History Date of Tetanus Vaccine: Up to date Date of Influenza Vaccine: None Infectious Disease History: No Infectious Disease History: Reports: Hx Hepatitis - hep c Denies: Hx Clostridium Difficile, Hx Human Immunodeficiency Virus (HIV), Hx of Known/Suspected MRSA - has had staph on his face, Hx Shingles, Hx Tuberculosis, Hx Known/Suspected VRE, Hx Known/Suspected VRSA, History Other Infectious Disease, Traveled Outside the [place] in Last 30 Days - Family History Known Family History: Positive: Cardiac Disease, Hypertension, Diabetes, Other - thyroid disease, depression, suicide - Social History Alcohol Use: Occasionally Hx Substance Use: Yes Substance Use Type: Reports: 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 pt states no more Hx Tobacco Use: Yes Smoking Status (MU): Heavy Every Day Tobacco Smoker Type: Cigarettes, eCigarettes Amount Used/How Often: 1/2 ppd and vapes Length of Time of Smoking/Using Tobacco: 14 years Have You Smoked in the Last Year: No Review of Systems Constitutional: Other - POSITIVE: clammy Positive: Fever - subjective, Chills, Skin Diaphoresis Positive: Cough Positive: Vomiting, Nausea Positive: Myalgia Positive: Headache All Other Systems Reviewed And Are Negative: Yes Physical Exam - Summary Physical Exam Summary: VITAL SIGNS: Reviewed. GENERAL: Patient is a well-developed and nourished male who is lying comfortable in the stretcher. Patient is not in any acute respiratory distress. HEAD AND FACE: No signs of trauma. No ecchymosis, hematomas or skull depressions. No sinus tenderness. Positive runny nose. EYES: PERRLA, EOMI x 2, No injected conjunctiva, no nystagmus. EARS: Hearing grossly intact. Ear canals and tympanic membranes are within normal limits. MOUTH: Oropharynx within normal limits. Pharyngeal erythema. NECK: Supple, trachea is midline, no adenopathy, no JVD, no carotid bruit, no c- spine tenderness, neck with full ROM. CHEST: Symmetric, no tenderness at palpation LUNGS: Clear to auscultation bilaterally. No wheezing or crackles. CVS: Regular rate and rhythm, S1 and S2 present, no murmurs or gallops appreciated. ABDOMEN: Soft, non-tender. No signs of distention. No rebound, no guarding, and no masses palpated. Bowel sounds are normal. EXTREMITIES: FROM in all major joints, no edema, no cyanosis or clubbing. NEURO: Alert and oriented x 3. No acute neurological deficits. Speech is normal and follows commands. SKIN: Dry and warm Triage Information Reviewed: Yes Vital Signs On Initial Exam: Initial Vitals Temp Pulse Resp BP Pulse Ox 98.2 F 78 19 119/89 97 04/20/19 16:51 04/20/19 16:51 04/20/19 16:51 04/20/19 16:51 04/20/19 16:51 Vital Signs Reviewed: Yes Procedures - Sedation Patient Received Moderate/Deep Sedation with Procedure: No Diagnostics - Vital Signs Vital Signs Temp Pulse Resp BP Pulse Ox 04/20/19 16:51 98.2 F 78 19 119/89 97 - Laboratory Lab Results: Lab Results 04/20/19 Range/Units 16:52 Influenza A (Rapid) Pending Influenza B (Rapid) Pending Lab Statement: Any lab studies that have been ordered have been reviewed, and results considered in the medical decision making process. - Radiology Chest XR Radiology Interpretation Completed By: ED Physician Summary of Radiographic Findings: No acute process. Re-Evaluation - Re-Evaluation First Eval Re-Evaluation Time: 18:49 Comment: Reviewed results with patient. Discharge plan discussed with patient and was advised to follow up with his PCP. Flu Symptom Course/Dx - Course Assessment/Plan: This pt is a 28 y/o male presenting to [facility] c/o flu like symptoms for the past 4 days. Pt reports his symptoms include nausea, vomiting, chills, subjective fevers, headache, myalgia, productive cough. Per significant other, when pt sleeps he feels hot to the touch but is clammy and diaphoretic. Pt took Tylenol [employer] with mild relief. Pt states he works at [employer] and has sick contacts there. He admits to tobacco use, occasional alcohol use, marijuana use. Chest x-ray impression: No acute pathology. Influenza A and B is negative. Rapid strep is negative. It seems that the patient has a viral infection. Therefore he will be discharged home with follow-up from his PCP. Patient was given a prescription for Zofran and ibuprofen. Patient is hemodynamically stable, alert and oriented x3. - Diagnoses Differential Diagnosis/HQI/PQRI: Positive: Bronchitis, Influenza, Pneumonia, Upper Respiratory Infection Provider Diagnoses: URI (upper respiratory infection), Viral respiratory illness Discharge ED - Sign-Out/Discharge Documenting (check all that apply): Patient Departure - Discharge home - Discharge Plan Condition: Stable Disposition: HOME Prescriptions: Ibuprofen TAB* [Motrin TAB* 600 MG] 600 mg PO Q8H PRN #21 tab PRN Reason: Pain - Mild Ondansetron HCl [Zofran] 4 mg PO Q8H PRN #10 tablet PRN Reason: Nausea Patient Education Materials: Upper Respiratory Infection (ED), Viral Syndrome ( ED) Forms: *Work Release Referrals: Cheng Terrazas MD [Primary Care Provider] - Additional Instructions: FOLLOW UP WITH YOUR PRIMARY CARE PROVIDER IN 2-3 DAYS. RETURN TO THE ED FOR ANY NEW OR WORSENING SYMPTOMS. - Billing Disposition and Condition Condition: STABLE Disposition: Home - Attestation Statements Document Initiated by Young: Yes Documenting Scribe: Nat Hobson Provider For Whom Young is Documenting (Include Credential): Jesus España MD Scribe Attestation: Nat Brewer scribed for Jesus España MD on 04/20/19 at 2149. Scribe Documentation Reviewed: Yes Provider Attestation: The documentation as recorded by the Nat cox accurately reflects the service I personally performed and the decisions made by me, Jesus España MD Status of Scribrabia Document: Viewed
[2019-04-20 17:20] LABS: Influenza A Molecular NEGATIVE (Negative); Influenza B Molecular NEGATIVE (Negative)
[2019-04-20 18:37] LABS: Rapid Strep Molecular Negative (Negative)
[2019-04-20 19:22] VITALS: BP 126/89
== END 2019-04-20 19:21 | disposition home or self-care (01) ==
LOC: ED 16:50
DX: J06.9 Acute upper respiratory infection, unspecified (principal); B34.9 Viral infection, unspecified; I10 Essential (primary) hypertension; J44.9 Chronic obstructive pulmonary disease, unspecified; K21.9 Gastro-esophageal reflux disease without esophagitis; F41.9 Anxiety disorder, unspecified; F31.9 Bipolar disorder, unspecified; F17.210 Nicotine dependence, cigarettes, uncomplicated; Z88.6 Allergy status to analgesic agent; Z88.0 Allergy status to penicillin; Z88.7 Allergy status to serum and vaccine; Z88.8 Allergy status to other drugs, medicaments and biological substances
CPT/HCPCS: 71046; 87651; 99282

== ENCOUNTER 2019-05-08 16:14 | Emergency (ER) | payer OTHER ==
[2019-05-08 18:49] LABS: ABS Eosinophils 0.1 10^3/ul (0-0.6); ABS Monocytes 0.6 10^3/ul (0-0.8); ABS Neutrophils 5.5 10^3/ul (1.5-7.7); Hematocrit 43 % (42-52); Hemoglobin 14.9 g/dL (14.0-18.0); Lymphocyte % 24.6 %; Mean Corpuscular HGB Conc 34 g/dL (31-36); Mean Corpuscular Hemoglobin 31 pg (27-31); Mean Corpuscular Volume 90 fL (80-94); Nucleated Red Blood Cells % 0.1; Platelet Count 171 10^3/uL (150-450); Red Blood Count 4.83 10^6 /uL (4.18-5.48); Red Cell Distribution Width 13 % (10-15); White Blood Count 8.3 10^3/uL (3.5-10.8)
[2019-05-08 19:05] LABS: Albumin 4.6 g/dL (3.2-5.2); Albumin/Globulin Ratio 1.8 (1-3); BUN/Creatinine Ratio 16.5 (8-20); Calcium 9.2 mg/dL (8.6-10.3); EGFR African American 128.9 (>60); EGFR Non-African American 106.6 (>60); Globulin 2.6 g/dL (2-4); Potassium 4.1 mmol/L (3.5-5.0); Total Bilirubin 0.6 mg/dL (0.2-1.0); Total Protein 7.2 g/dL (6.4-8.9)
[2019-05-08] MEDS ORDERED: Morphine INJ* 2 MG/ML 1 ML SYRINGE (TWO MG - NEW SYRINGE VERSION) IV ONE (19:10)
[2019-05-08] MEDS ORDERED: Iohexol 300* (CONTRAST) 10 ML SDV IV ONE (19:11)
[2019-05-08 20:55] LABS: Urine Appearance Cloudy; Urine Bilirubin Negative (Negative); Urine Blood Negative (Negative); Urine Color Yellow; Urine Glucose Negative (Negative); Urine Ketones Negative (Negative); Urine Nitrite Negative (Negative); Urine Protein Negative (Negative); Urine Specific Gravity 1.043 (1.010-1.030); Urine Urobilinogen Negative (Negative)
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
[2019-05-08] MEDS ORDERED: Cyclobenzaprine TAB* 10 MG PO ONE (21:10)
[2019-05-08] MEDS ORDERED: HYDROcodone/ACETAMIN 5-325 MG* 1 TAB PO ONE (21:52)
[2019-05-08 22:17] VITALS: BP 119/84
== END 2019-05-08 22:14 | disposition home or self-care (01) ==
LOC: ED 16:14
DX: S09.90XA Unspecified injury of head, initial encounter (principal); S09.93XA Unspecified injury of face, initial encounter; S69.92XA Unspecified injury of left wrist, hand and finger(s), initial encounter; M25.512 Pain in left shoulder; M54.2 Cervicalgia; R07.89 Other chest pain; V47.5XXA Car driver injured in collision with fixed or stationary object in traffic accident, initial encounter; Y92.410 Unspecified street and highway as the place of occurrence of the external cause; J44.9 Chronic obstructive pulmonary disease, unspecified; K21.9 Gastro-esophageal reflux disease without esophagitis; F41.9 Anxiety disorder, unspecified; F31.9 Bipolar disorder, unspecified; F17.290 Nicotine dependence, other tobacco product, uncomplicated; Z86.19 Personal history of other infectious and parasitic diseases; Z88.6 Allergy status to analgesic agent; Z88.0 Allergy status to penicillin; Z88.7 Allergy status to serum and vaccine; Z88.8 Allergy status to other drugs, medicaments and biological substances
CPT/HCPCS: 36415; 70450; 70486; 71260; 72125; 74177; 80053; 81003; 83605; 85025; 96374; 99284; A9270-GY; J2270; Q9967